=== PATIENT | male | born 1965 | race Caucasian/White ===

== ENCOUNTER 2024-04-27 19:02 | Emergency (ER) | payer OTHER, SELFPAY ==
[2024-04-27 19:16] VITALS: BP 146/87; PULSE 100; RESP 16; TEMP 37.1; O2SAT 99
--- NOTE | 2024-04-27 19:21 | ED_ITS ---
HPI - URI/Sore Throat General Chief Complaint: Upper Respiratory Infection Stated Complaint: Cough, Rib Pain Source: patient Mode of arrival: ambulatory Limitations: no limitations History of Present Illness HPI Narrative: 50-year-old male presented for complaint of left rib pain, onset last night. He states it occurred during a coughing fit, and felt like something tore. Pain is worse when any movement especially coughing, rating pain up to 10/10. Endorses cough x3 days, and nasal congestion started today. Denies shortness of breath, wheezing, nausea, vomiting, diarrhea, fevers or chills. He has taken A leve and ibuprofen for pain. Pt is scheduled with his pcp tomorrow. Related Data Allergies Allergy/AdvReac Type Severity Reaction Status Date / Time No Known Allergies Allergy Verified 04/27/24 19:14 Review of Systems Review of Systems: CONSTITUTIONAL: Denies body aches, fever, chills, or sweats. EYES: Denies visual changes, redness, or discharge. ENT: reports rhinorrhea, congestion, sore throat, or otalgia. CARDIOVASCULAR: Denies chest pain, palpitations, or edema. RESPIRATORY: Reports cough, denies sob, wheezing. GASTROINTESTINAL: Denies abdominal pain, nausea, vomiting, or diarrhea. GENITOURINARY: Denies dysuria or hematuria. SKIN: Denies rash MUSCULOSKELETAL: Reports left rib pain NEUROLOGIC: Denies headache All systems reviewed & are unremarkable except as noted in HPI and below PMFSH Comments At time of signature, I have reviewed and agree with nursing past medical, surgical, social and family history unless otherwise noted. Please see nursing chart for further information. There is no relevant family history pertinent to the presenting complaint Exam Narrative: GENERAL: Appears in pain with movement; in no acute distress. EYES: EOMI. No redness or drainage. Conjunctivae normal. ENT: Mucous membranes pink and moist. No rhinorrhea. TMs normal bilaterally. Throat normal. Uvula midline. NECK: Normal AROM. Supple. CHEST: No respiratory distress. Lungs clear to all dominique. Left lateral rib 5-6 area tender with palpation; no bruising. HEART: Regular rate and rhythm. No murmur appreciated. ABDOMEN: Soft, nontender, nondistended, normal active bowel sounds. SKIN: Warm, dry, no rash. Capillary refill normal. Normal skin turgor. NEURO: Alert and oriented x3. Gait steady. PSYCH: Normal affect. Course Course Emergency Course: Patient is aware of diagnosis, understands and agrees to treatment plan. Anticipatory guidance given. Patient agrees to follow-up as directed and is aware of reasons to seek care at the emergency department. Portions of this record may have been created with voice recognition software Level of Care: Express Care Visit Vital Signs Vital signs: Vital Signs Temperature 98.7 F 04/27/24 19:16 Pulse Rate 100 04/27/24 19:16 Respiratory Rate 16 04/27/24 19:16 Blood Pressure 146/87 H 04/27/24 19:16 Pulse Oximetry 99 04/27/24 19:16 Temperature 98.7 F 04/27/24 19:16 Pulse Rate 100 04/27/24 19:16 Respiratory Rate 16 04/27/24 19:16 Blood Pressure 146/87 H 04/27/24 19:16 Pulse Oximetry 99 04/27/24 19:16 MDM - URI/Sore Throat MDM Narrative Medical decision making narrative: Discussed physical exam findings and reviewed Rx's. Advised supportive measures and signs/symptoms to go to the ER. Pt is appropriate for outpt treatment and f/u. Differential Diagnosis Differential diagnosis: Likely upper respiratory infection, sinusitis, viral infection, bronchitis and other (pneumonia, rib contusion, costochondritis, fracture, dislocation) Discharge Plan Discharge Clinical Impression: Bronchitis, Rib pain on left side Patient Disposition: Home, Self-Care Condition: Stable Instructions: Antibiotic Form, Costochondritis (ED), Acute Bronchitis (ED) Additional Instructions: Acute bronchitis can be contagious because it is usually caused by infection with a virus or bacteria. It is usually for a few days but you can be contagious for up to one week. Avoid crowds until you do not have a fever and symptoms are improved Take medication as directed Recommendations: for nasal congestion; Flonase spray and Zyrtec (or Claritin/Lizeth) Prescribed Cough syrup may cause drowsiness; avoid driving or take it at night time. Push fluids, and increase humidity of the air at home. For pain: Rest. Avoid pushing, pulling, lifting or anything that worsens the symptoms Splint the chest with a pillow when laughing, coughing, sneezing etc. Tylenol 1000mg every 8 hours as needed Take steroid as directed - limit NSAIDs( advil, aleve, ibuprofen, Motrin etc) Alternate ice/heat to the site. Lidocaine or salon pas pain patch to the site of pain, or use pain cream like icy/hot or biofreeze. Follow up with your primary care provider as scheduled Go to the ER for worsening symptoms or concerns Patient Language: Portuguese Prescriptions: New codeine-guaifenesin [Guaifenesin AC] 10-100 mg/5 mL liquid 10 ml PO Q8H PRN (Reason: cough) Qty: 120 0RF methylprednisolone [Medrol (Carlos)] 4 mg tablets,dose pack See Rx Instructions .ROUTE .COMPLEX Qty: 21 0RF Rx Instructions: orally per package directions Follow-up/Referrals: Joni,MD Acharya ([place]) [Primary Care Provider] - Time of Disposition: 19:35
--- OUTSIDE RECORDS SUMMARY | 2024-05-05 00:10 | XMS_ITS | Encounter Summary ---
Author Organization [facility] Address [address] [place] [address]. [place] [address] [place] [address] Care Team Providers Care Flight Paramedic Name Role Phone Willy Gomez MD Unavailable [phone] John Quinones MD Primary Care Provider [phone] Encounter Details Date Type Department Care Team (Latest Contact Info) Description 01/22/2023 Travel Social History Tobacco Use Types Packs/Day Years Used Date Smoking Tobacco: Never Smokeless Tobacco: Never Alcohol Use Standard Drinks/Week Comments Yes 33.3 (1 standard drink = 0.6 oz pure alcohol) beer PHQ-2 Answer Date Recorded Patient Health Questionnaire-2 Score 0 12/14/2022 Sex and Gender Information Value Date Recorded Sex Assigned at Not on file Legal Sex Male 7:48 AM CDT Gender Identity Not on file Sexual Orientation Not on file Occupation Industry Job Start Date Job End Date [employer] Not on file Not on file Not on file documented as of this encounter Plan of Treatment Upcoming Encounters Date Type Department Care Team (Late st Contact Info) Description 11/17/2024 8:45 AM CDT Office Visit [facility], [facility] [address] [place], [place] [id number] Stan Wan, SANDIE [facility] [address] [place], [place] [id number] documented as of this encounter Visit Diagnoses Not on filedocumented in this encounter Care Teams Flight Paramedic Relationship Specialty Start Date End Date John Quinones MD [address] [place] [address] PCP - General INTERNAL MEDICINE 10/21/21 Willy Gomez MD [facility]. [facility] [address] [place] [address] [place] [employer] Analyst CARDIOVASCULAR DISEASE 12/11/17 documented as of this encounter
--- OUTSIDE RECORDS SUMMARY | 2024-05-05 00:10 | XMS_ITS | Encounter Summary ---
Author Organization [facility] Address [address] [place] [address]. [place] [address] [place] [address] Care Team Providers Care Detective Precinct Name Role Phone Willy Gomez MD Unavailable [phone] John Quinones MD Primary Care Provider [phone] Encounter Details Date Type Department Care Team (Latest Contact Info) Description 05/07/2023 Travel Social History Tobacco Use Types Packs/Day [...] Description 11/17/2024 8:45 AM CDT Office Visit [facility], [facility] [address] [place], [place] [id number] Stan Wan, SANDIE [facility] [address] [place], [place] [id number] documented as of this encounter Visit Diagnoses Not on filedocumented in this encounter Care Teams Detective Precinct Relationship Specialty Start Date End Date John Quinones MD [address] [place] [address] PCP - General INTERNAL MEDICINE 10/21/21 Willy Gomez MD [facility]. [facility] [address] [place] [address] [place] Senior [employer] Analyst CARDIOVASCULAR DISEASE 12/11/17 documented as of this encounter
--- OUTSIDE RECORDS SUMMARY | 2024-05-05 00:10 | XMS_ITS | Data Portability ---
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 Studies ordered as below. Discussed plan with patient/caregiver , who expressed understanding. Follow up as noted below. Not available 06/14/2022 09:37:40 07/17/2022 07/17/2022 Recommends healthy nutrition, including a diet rich in fruits and vegetables, minimizing simple carbohydrates, salt, and saturated fats. Encouraged regular cardiovascular exercise such as walking at least 30 minutes daily, 5 times per week. Not available 07/17/2022 17:37:31 10/16/2022 10/16/2022 Patient presente d for follow up. Studies ordered as below. Discussed plan with patient/caregiver , who expressed understanding. Follow up as noted below. Recommends healthy nutrition, including a diet rich in fruits and vegetables, minimizing simple carbohydrates, salt, and saturated fats. Encouraged regular cardiovascular exercise such as walking at least 30 minutes daily, 5 times per week. Not available 10/16/2022 09:22:33 02/21/2024 02/21/2024 Recommends healthy nutrition, including a diet rich in fruits and vegetables, minimizing simple carbohydrates, salt, and saturated fats. Encouraged regular cardiovascular exercise such as walking at least 30 minutes daily, 5 times per week. Not available 02/21/2024 10:04:48 Plan of Treatment Reminders Order Date Submit Date Provider Last Modified By Organization Details Last Modified Time Details Appointments ESTABLISH ED PATIENT 15 2024 10:00A Adam Quinones MD Not available Not available Not available Lab CBC w/ auto diff 2022 023 IJEOMA Not available 06/15/2022 14:50:20 lipid panel, serum 2022 023 [email or web address] Not available 06/21/2022 10:19:48 CMP, serum or plasma 2022 023 IJEOMA Not available 06/15/2022 14:50:20 PSA, serum or plasma 2022 023 IJEOMA Not available 06/15/2022 14:50:22 unlisted lab - HIV-1/2 Ag/Ab w/rfx 2022 023 IJEOMA Not available 06/14/2022 09:50:42 noninvasi ve colorecta l cancer DNA + occult blood screening , QL, stool 2022 023 [facility] [employer] [place] (Cologuard Orders Only), [address], [place], [address], 07/17/2023 13:23:36 CBC w/ auto diff 2022 023 [email or web address] Not available 07/24/2022 21:05:01 lipid panel, serum 2022 023 [email or web address] Not available 07/24/2022 21:05:01 CMP, serum or plasma 2022 023 [email or web address] Not available 07/24/2022 21:05:01 lipid panel, serum 2022 023 [email or web address] Not available 10/24/2022 08:27:27 CMP, serum or plasma 2022 023 Not available 10/24/2022 08:27:27 microalbu min/creat inine, mass ratio, urine 2022 023 IJEOMA Not available 01/23/2023 13:00:26 noninvasi ve colorecta l cancer DNA + occult blood screening , QL, stool 2022 023 [facility] [employer] [facility] (Cologuard Orders Only), [address], [address], [place], [address], 10/17/2022 12:49:43 hemoglobi n A1C/hemog lobin total, QN, blood 2022 023 IJEOMA Not available 10/16/2022 09:37:36 urinalysi s complete, reflex culture 2023 [facility], [address], [place], [address], 02/28/2024 08:13:35 lipid panel, serum 2023 [facility], [address], [place], [address], 02/24/2024 00:36:20 CMP, serum or plasma 2023 [facility], [address], [place], [address], 02/24/2024 00:36:19 CBC w/ auto diff 2023 024 [facility], [address], [place], [address], 02/24/2024 00:36:18 PSA, serum or plasma 2023 024 [facility], [address], [place], [address], 02/28/2024 08:13:35 noninvasi ve colorecta l cancer DNA + occult blood screening , QL, stool 2023 024 [facility], [address], [place], [address], 02/21/2024 10:09:02 hemoglobi n A1C/hemog lobin total, QN, blood 2023 024 [facility], [address], [place], [address], 02/21/2024 10:09:04 D-dimer, quant, plasma 2023 024 [facility], [address], [place], [address], 04/30/2024 10:09:56 CBC w/ auto diff 2023 024 [facility], [address], [place], [address], 04/30/2024 10:09:56 BMP, serum or plasma 2023 024 [facility], [address], [place], [address], 04/30/2024 10:09:54 uric acid, serum or plasma 2023 024 [facility], [address], [place], [address], 04/30/2024 10:09:55 Referral ophthalmo logist referral 2022 023 [facility], [address] [place] [address] [place], [address], 07/12/2022 09:02:02 pulmonolo gist referral 2022 023 estrella Hoover MD, [address] [facility], [facility] [address], [place], [address], 07/12/2023 08:16:02 ophthalmo logist referral 2022 023 [facility], [address], [place], [address], 08/14/2022 08:27:45 pulmonolo gist referral 2022 023 IJEOMA Hoover MD, [address] [facility], [address], [place], [address], 12/31/2022 08:35:27 ophthalmo logist referral 2022 023 [facility], [address], [place], [address], 11/13/2022 11:02:24 Procedures None recorded. Surgeries None recorded. Imaging CT, chest, w/ contrast 2022 023 [facility] Central Scheduling, [address] [facility], [place], [address], 07/18/2022 19:02:08 CT, chest, w/ contrast 2022 023 [facility] Central Scheduling, [address] [facility], [place], [address], 07/18/2022 17:35:58 XR, lumbar spine 2023 024 [facility], [address] [facility], [place], [address], 03/06/2024 08:11:59 XR, ribs, unilatera l 2023 024 [facility] Central Scheduling, [address] [facility], [place], [address], 04/28/2024 15:20:41 Medication Orders telmisart an 20 mg tablet 2022 023 [facility], [address], [place], [address], 10/16/2022 09:37:38 Airsupra 90 mcg-80 mcg/actua tion HFA aerosol inhaler 2023 024 [facility], [address] [place], [address], 02/21/2024 10:08:13 telmisart an 20 mg tablet 2023 024 [facility], [address] [place], [address], 02/21/2024 10:08:13 hydrocodo ne 5 mg-acetam inophen 325 mg tablet 2023 [facility] [address], [address] [place] [address], [address], 04/28/2024 15:14:05 codeine 10 mg-guaife nesin 100 mg/5 mL oral liquid 2023 024 [facility] [address], [address] [place] [address], [address], 04/28/2024 15:14:05 benzonata te 200 mg capsule 2023 024 [facility] [address], [address] [place] [address], [address], 04/28/2024 15:14:04 Patient TargetsNo targets recorded. Patient Instructions Encounter Date Encounter Id Patient Instructions Last Modified By Organization Details Last Modified Time 06/14/2022 [id number] advised to lose weight Not available 06/14/2022 09:50:13 spirometry testing* IJEOMA Not available 06/14/2022 14:41:22 07/17/2022 [id number] advised to lose weight Not available 07/17/2022 17:55:15 10/16/2022 [id number] advised to lose weight Not available 10/16/2022 09:37:31 02/21/2024 [id number] advised to lose weight Not available 02/21/2024 10:08:03 Discussed and explained advance directives such as standard forms to the {{patient caregiv er patient and caregiver}}. Face to face discussion lasted for a duration of ___ minutes. [email or web address] Not available 02/21/2024 09:06:54 Reason for Referral Rn Endocrinology Referral for Visual disturbance Referring Physician: Marvel Quinones [facility], Encounter Date: 06/14/2022 Rn Endocrinology Referral for Visual disturbance Referring Physician: Marvel Quinones [facility], Encounter Date: 07/17/2022 Pack Master Referral for S upraclavicular lymphadenopathy Referring Physician: Marvel Quinones [facility], Encounter Date: 07/17/2022 Rn Endocrinology Referral for Visual disturbance Referring Physician: Marvel Quinones [facility], Encounter Date: 10/16/2022 Pack Master Referral for S upraclavicular lymphadenopathy Referring Physician: Marvel Quinones [facility], Encounter Date: 10/16/2022 Results Created Date Observation Date Name Description Value Unit Range Abnormal Flag Note LastModifiedBy Organization Detail LastModifiedTime 06/14/1906/14/2022 COMPL ETE CBC W/AUT O DIFF WBC white blood cell count 7.1 thous and/u L 3.5-10 .0 Not Available [facility] (Main Location) [facility] [address] ,, [place], [address], 06/15/2022 14:50:20 06/14/19 23 06/14/2022 COMPL ETE CBC W/AUT O DIFF WBC red blood cell count 4.8 cam on/uL 3.5-5. 5 Not Available [facility] (Main Location) [facility] [address] ,, [place], [address], 06/15/2022 14:50:20 06/14/19 23 06/14/2022 COMPL ETE CBC W/AUT O DIFF WBC hemoglobin 15.1 g/dL 11.5-1 6.5 Not Available [facility] (Main Location) [facility] [address] ,, [place], [address], 06/15/2022 14:50:20 06/14/19 23 06/14/2022 COMPL ETE CBC W/AUT O DIFF WBC hematocrit 46 % 35-55 Not Available [facility] (Main Location) [facility] [address] ,, [place], [address], 06/15/2022 14:50:20 06/14/19 23 06/14/2022 COMPL ETE CBC W/AUT O DIFF WBC MCH 32 pg 25-35 Not Available [facility] (Main Location) [facility] [address] ,, [place], [address], 06/15/2022 14:50:20 06/14/19 23 06/14/2022 COMPL ETE CBC W/AUT O DIFF WBC MCHC 33 g/dL 31-38 Not Available [facility] (Main Location) [facility] [address] ,, [place], [address], 06/15/2022 14:50:20 06/14/19 23 06/14/2022 COMPL ETE CBC W/AUT O DIFF WBC MCV 96 fL 75-100 Not Available [facility] (Main Location) [facility] [address] ,, [place], [address], 06/15/2022 14:50:20 06/14/19 23 06/14/2022 COMPL ETE CBC W/AUT O DIFF WBC RDW-CV 13 % 11-15 Not Available [facility] (Main Location) [facility] [address] ,, [place], [address], 06/15/2022 14:50:20 06/14/19 23 06/14/2022 COMPL ETE CBC W/AUT O DIFF WBC neutrophils% 56.2 % Not Available [facility] (Main Location) [facility] [address] ,, [place], [address], 06/15/2022 14:50:20 06/14/19 23 06/14/2022 COMPL ETE CBC W/AUT O DIFF WBC lymphocytes% 32.0 % Not Available [facility] (Main Location) [facility] [address] ,, [place], [address], 06/15/2022 14:50:20 06/14/19 23 06/14/2022 COMPL ETE CBC W/AUT O DIFF WBC monocytes% 8.9 % Not Available [facility] (Main Location) [facility] [address] ,, [place], [address], 06/15/2022 14:50:20 06/14/19 23 06/14/2022 COMPL ETE CBC W/AUT O DIFF WBC eosinophil % 1.8 % 0.0-7. 0 Not Available [facility] (Main Location) [facility] [address] ,, [place], [address], 06/15/2022 14:50:20 06/14/19 23 06/14/2022 COMPL ETE CBC W/AUT O DIFF WBC basophil % 0.8 % 0.0-3. 0 Not Available [facility] (Main Location) [facility] [address] ,, [place], [address], 06/15/2022 14:50:20 06/14/19 23 06/14/2022 COMPL ETE CBC W/AUT O DIFF WBC absolute neutrophils 4.0 cells /uL 1.5-7. 8 Not Available [facility] (Main Location) [facility] [address] ,, [place], [address], 06/15/2022 14:50:20 06/14/19 23 06/14/2022 COMPL ETE CBC W/AUT O DIFF WBC absolute lymphocytes 2.27 cells /uL 0.85-3 .90 Not Available [facility] (Main Location) [facility] [address] ,, [place], [address], 06/15/2022 14:50:20 06/14/19 23 06/14/2022 COMPL ETE CBC W/AUT O DIFF WBC absolute monocytes 0.6 cells /uL 0.2-1. 0 Not Available [facility] (Main Location) [facility] [address] ,, [place], [address], 06/15/2022 14:50:20 06/14/19 23 06/14/2022 COMPL ETE CBC W/AUT O DIFF WBC absolute eosinophils 0.1 cells /uL 0.0-0. 5 Not Available [facility] (Main Location) [facility] [address] ,, [place], [address], 06/15/2022 14:50:20 06/14/19 23 06/14/2022 COMPL ETE CBC W/AUT O DIFF WBC absolute basophils 0.1 cells /uL 0.0-0. 2 Not Available [facility] (Main Location) [address] [place], [place] [address] ,, [place], [address], 06/15/2022 14:50:20 06/14/19 23 06/14/2022 COMPL ETE CBC W/AUT O DIFF WBC platelet count 222 thous and/u L 100-40 0 Not Available [facility] (Main Location) [address] [place], [place] [address] ,, [place], [address], 06/15/2022 14:50:20 06/14/19 23 06/14/2022 CMP (COMP REHEN SIVE METAB OLIC PANEL ) glucose 115 mg/dL 74-99 high Not Available [facility] (Main Location) [address] [place], [place] [address] ,, [place], [address], 06/15/2022 14:50:20 06/14/19 23 06/14/2022 CMP (COMP REHEN SIVE METAB OLIC PANEL ) urea nitrogen, blood (BUN) 12 mg/dL 6-20 Not Available [facility] (Main Location) [address] [place], [place] [address] ,, [place], [address], 06/15/2022 14:50:20 06/14/19 23 06/14/2022 CMP (COMP REHEN SIVE METAB OLIC PANEL ) total bilirubin 0.4 mg/dL 0.0-1. 2 Not Available [facility] (Main Location) [address] [place], [place] [address] ,, [place], [address], 06/15/2022 14:50:20 06/14/19 23 06/14/2022 CMP (COMP REHEN SIVE METAB OLIC PANEL ) total protein 7.8 g/dL 6.6-8. 7 Not Available [facility] (Main Location) [address] [place] [address] [address] ,, [place], [address], 06/15/2022 14:50:20 06/14/19 23 06/14/2022 CMP (COMP REHEN SIVE METAB OLIC PANEL ) alanine aminotransfe rase (ALT) 55 U/L 0-41 high Not Available [facility] (Main Location) [address] [place] [address]. [address] ,, [place], [address], 06/15/2022 14:50:20 06/14/19 23 06/14/2022 CMP (COMP REHEN SIVE METAB OLIC PANEL ) alkaline phosphatase 104 U/L 40-130 Not Available [facility] (Main Location) [address] [place] [address] [address] ,, [place], [address], 06/15/2022 14:50:20 06/14/19 23 06/14/2022 CMP (COMP REHEN SIVE METAB OLIC PANEL ) aspartate aminotransfe rase (AST) 28 U/L 0-40 Not Available [facility] (Main Location) [address] [place] [address]. [address] ,, [place], [address], 06/15/2022 14:50:20 06/14/19 23 06/14/2022 CMP (COMP REHEN SIVE METAB OLIC PANEL ) calcium 9.4 mg/dL 8.6-10 .2 Not Available [facility] (Main Location) [address] [place] [address] [address] ,, [place], [address], 06/15/2022 14:50:20 06/14/19 23 06/14/2022 CMP (COMP REHEN SIVE METAB OLIC PANEL ) albumin 4.5 g/dL 3.5-5. 2 Not Available [facility] (Main Location) [address] [place] [address] [address] ,, [place], [address], 06/15/2022 14:50:20 06/14/19 23 06/14/2022 CMP (COMP REHEN SIVE METAB OLIC PANEL ) CO2 25 mmol/ L 22-29 Not Available [facility] (Main Location) [address] ,, [place], [address], 06/15/2022 14:50:20 06/14/19 23 06/14/2022 CMP (COMP REHEN SIVE METAB OLIC PANEL ) creatinine, serum 0.9 mg/dL 0.7-1. 2 Not Available [facility] (Main Location) [address] [place] [address] [address] ,, [place], [address], 06/15/2022 14:50:20 06/14/19 23 06/14/2022 CMP (COMP REHEN SIVE METAB OLIC PANEL ) sodium, serum 137 mmol/ L 136-14 5 Not Available [facility] (Main Location) [address] [place] [address] [address] ,, [place], [address], 06/15/2022 14:50:20 06/14/19 23 06/14/2022 CMP (COMP REHEN SIVE METAB OLIC PANEL ) potassium, serum 4.0 mmol/ L 3.5-5. 1 Not Available [facility] (Main Location) [address] [place] [address] [address] ,, [place], [address], 06/15/2022 14:50:20 06/14/19 23 06/14/2022 CMP (COMP REHEN SIVE METAB OLIC PANEL ) chloride, serum 100 mmol/ L 98-107 Not Available [facility] (Main Location) [address] [place] [address] [address] ,, [place], [address], 06/15/2022 14:50:20 06/14/19 23 06/14/2022 CMP (COMP REHEN SIVE METAB OLIC PANEL ) eGFR 97 >59 Persi stent reduc tion for 3 month s or more in an eGFR <60 mL/mi n/1.7 3 m2 defin es CKD. Patie nts with eGFR value s>/=6 0 mL/mi n/1.7 3 m2 may also have CKD if evide nce of persi stent protu sharee a is prese nt. Addit ional infor montrell vigil may be found at www.k doqi. org. Not Available [facility] (Main Location) [address] ,, [place], [address], 06/15/2022 14:50:20 06/14/19 23 06/14/2022 HIV-1 /2 AG & AB HIV antibody NON-RE ACTIVE non-re active Not Available [facility] (Main Location) [address] ,, [place], [address], 06/15/2022 14:50:21 06/14/19 23 06/14/2022 HIV-1 /2 AG & AB HIV P24 antigen NON-RE ACTIVE non-re active Not Available [facility] (Main Location) [address] ,, [place], [address], 06/15/2022 14:50:21 06/14/19 23 06/14/2022 LIPID PANEL trigylceride s 234 mg/dL 0-150 high Not Available [facility] (Main Location) [address] ,, [place], [address], 06/15/2022 14:50:22 06/14/19 23 06/14/2022 LIPID PANEL cholesterol 180 mg/dL 0-200 Not Available [facility] (Main Location) [address] ,, [place], [place], [address], 06/15/2022 14:50:22 06/14/19 23 06/14/2022 LIPID PANEL uhdl 38 mg/dL 35-55 Not Available [facility] (Main Location) [address] ,, [place], [place], [address], 06/15/2022 14:50:22 06/14/19 23 06/14/2022 LIPID PANEL LDL, calculated 95 mg/dL 0-100 Not Available [facility] (Main Location) [address] ,, [place], [place], [address], 06/15/2022 14:50:22 06/14/19 23 06/14/2022 LIPID PANEL LDL/HDL ratio 3 mg/dL 0-5 Not Available [facility] (Main Location) [address] ,, [place], [address], 06/15/2022 14:50:22 06/14/19 23 06/14/2022 LIPID PANEL VLDL 46.8 mg/dL 5.0-40 .0 high Not Available [facility] (Main Location) [facility] [address] ,, [place], [address], 06/15/2022 14:50:22 06/14/19 23 06/14/2022 LIPID PANEL cholesterol/ HDL ratio 4.74 0.00-5 .00 Not Available [facility] (Main Location) [address] [place], [place] [address] ,, [place], [address], 06/15/2022 14:50:22 06/14/19 23 06/14/2022 PROST ATE-S PECIF IC ANTIG EN (PSA) , TOTAL PSA, total 0.5 NG/mL 0.0-4. 0 PSA is an elect henry milum inesc ence immun oassa y run on the [facility] [address]. Not Available [facility] (Main Location) [facility] [address] ,, [place], [address], 06/15/2022 14:50:22 06/26/19 23 06/26/2022 HEMOG LOBIN A1C HGBA1C 5.5 % 4.0-6. 0 Not Available [facility] (Main Location) [address] [place], [place] [address] ,, [place], [address], 06/27/2022 13:39:59 07/14/1907/13/2022 marietta metry testi ng* Spirometry Not Available [facility], [facility] [address], [place], [address], 06/14/2022 09:35:18 07/25/19 23 07/24/2022 COMPL ETE CBC W/AUT O DIFF WBC white blood cell count 6.7 thous and/u L 3.5-10 .0 Not Available [facility] (Main Location) [address] ,, [place], [address], 07/25/2022 14:22:42 07/25/19 23 07/24/2022 COMPL ETE CBC W/AUT O DIFF WBC red blood cell count 4.8 cam on/uL 3.5-5. 5 Not Available [facility] (Main Location) [address] ,, [place], [address], 07/25/2022 14:22:42 07/25/19 23 07/24/2022 COMPL ETE CBC W/AUT O DIFF WBC hemoglobin 15.2 g/dL 11.5-1 6.5 Not Available [facility] (Main Location) [address] ,, [place], [address], 07/25/2022 14:22:42 07/25/19 23 07/24/2022 COMPL ETE CBC W/AUT O DIFF WBC hematocrit 46 % 35-55 Not Available [facility] (Main Location) [address] ,, [place], [address], 07/25/2022 14:22:42 07/25/19 23 07/24/2022 COMPL ETE CBC W/AUT O DIFF WBC MCH 32 pg 25-35 Not Available [facility] (Main Location) [address] ,, [place], [address], 07/25/2022 14:22:42 07/25/19 23 07/24/2022 COMPL ETE CBC W/AUT O DIFF WBC MCHC 33 g/dL 31-38 Not Available [facility] (Main Location) [address] ,, [place], [address], 07/25/2022 14:22:42 07/25/19 23 07/24/2022 COMPL ETE CBC W/AUT O DIFF WBC MCV 96 fL 75-100 Not Available [facility] (Main Location) [address] ,, [place], [address], 07/25/2022 14:22:42 07/25/19 23 07/24/2022 COMPL ETE CBC W/AUT O DIFF WBC RDW-CV 13 % 11-15 Not Available [facility] (Main Location) [address] ,, [place], [address], 07/25/2022 14:22:42 07/25/19 23 07/24/2022 COMPL ETE CBC W/AUT O DIFF WBC neutrophils% 55.0 % Not Available [facility] (Main Location) [facility] [address] ,, [place], [address], 07/25/2022 14:22:42 07/25/19 23 07/24/2022 COMPL ETE CBC W/AUT O DIFF WBC lymphocytes% 34.7 % Not Available [facility] (Main Location) [facility] [address] ,, [place], [address], 07/25/2022 14:22:42 07/25/19 23 07/24/2022 COMPL ETE CBC W/AUT O DIFF WBC monocytes% 6.9 % Not Available [facility] (Main Location) [address] ,, [place], [address], 07/25/2022 14:22:42 07/25/19 23 07/24/2022 COMPL ETE CBC W/AUT O DIFF WBC eosinophil % 2.4 % 0.0-7. 0 Not Available [facility] (Main Location) [facility] [address] ,, [place], [address], 07/25/2022 14:22:42 07/25/19 23 07/24/2022 COMPL ETE CBC W/AUT O DIFF WBC basophil % 0.9 % 0.0-3. 0 Not Available [facility] (Main Location) [facility] [address] ,, [place], [address], 07/25/2022 14:22:42 07/25/19 23 07/24/2022 COMPL ETE CBC W/AUT O DIFF WBC absolute neutrophils 3.7 cells /uL 1.5-7. 8 Not Available [facility] (Main Location) [address] ,, [place], [address], 07/25/2022 14:22:42 07/25/19 23 07/24/2022 COMPL ETE CBC W/AUT O DIFF WBC absolute lymphocytes 2.32 cells /uL 0.85-3 .90 Not Available [facility] (Main Location) [address] ,, [place], [address], 07/25/2022 14:22:42 07/25/19 23 07/24/2022 COMPL ETE CBC W/AUT O DIFF WBC absolute monocytes 0.5 cells /uL 0.2-1. 0 Not Available [facility] (Main Location) [address] ,, [place], [address], 07/25/2022 14:22:42 07/25/19 23 07/24/2022 COMPL ETE CBC W/AUT O DIFF WBC absolute eosinophils 0.2 cells /uL 0.0-0. 5 Not Available [facility] (Main Location) [address] ,, [place], [address], 07/25/2022 14:22:42 07/25/19 23 07/24/2022 COMPL ETE CBC W/AUT O DIFF WBC absolute basophils 0.1 cells /uL 0.0-0. 2 Not Available [facility] (Main Location) [address] ,, [place], [address], 07/25/2022 14:22:42 07/25/19 23 07/24/2022 COMPL ETE CBC W/AUT O DIFF WBC platelet count 182 thous and/u L 100-40 0 Not Available [facility] (Main Location) [address] ,, [place], [address], 07/25/2022 14:22:42 07/25/19 23 07/24/2022 CMP (COMP REHEN SIVE METAB OLIC PANEL ) glucose 105 mg/dL 74-99 high Not Available [facility] (Main Location) [address] [place] [address]. [address] ,, [place], [address], 07/25/2022 14:22:43 07/25/19 23 07/24/2022 CMP (COMP REHEN SIVE METAB OLIC PANEL ) urea nitrogen, blood (BUN) 16 mg/dL 6-20 Not Available [facility] (Main Location) [address] [place] [address]. [address] ,, [place], [address], 07/25/2022 14:22:43 07/25/19 23 07/24/2022 CMP (COMP REHEN SIVE METAB OLIC PANEL ) total bilirubin 0.4 mg/dL 0.0-1. 2 Not Available [facility] (Main Location) [address] [place] [address]. [address] ,, [place], [address], 07/25/2022 14:22:43 07/25/19 23 07/24/2022 CMP (COMP REHEN SIVE METAB OLIC PANEL ) total protein 6.5 g/dL 6.6-8. 7 low Not Available [facility] (Main Location) [address] [place] [address]. [address] ,, [place], [address], 07/25/2022 14:22:43 07/25/19 23 07/24/2022 CMP (COMP REHEN SIVE METAB OLIC PANEL ) alanine aminotransfe rase (ALT) 41 U/L 0-41 Not Available [facility] (Main Location) [address] [place] [address]. [address] ,, [place], [address], 07/25/2022 14:22:43 07/25/19 23 07/24/2022 CMP (COMP REHEN SIVE METAB OLIC PANEL ) alkaline phosphatase 85 U/L 40-130 Not Available [facility] (Main Location) [address] [place] [address]. [address] ,, [place], [address], 07/25/2022 14:22:43 07/25/19 23 07/24/2022 CMP (COMP REHEN SIVE METAB OLIC PANEL ) aspartate aminotransfe rase (AST) 19 U/L 0-40 Not Available [facility] (Main Location) [address] [place] [address] [address]. [address] ,, [place], [place], [address], 07/25/2022 14:22:43 07/25/19 23 07/24/2022 CMP (COMP REHEN SIVE METAB OLIC PANEL ) calcium 9.1 mg/dL 8.6-10 .2 Not Available [facility] (Main Location) [address] [place] [address] Rd. [address] ,, [place], [place], [address], 07/25/2022 14:22:43 07/25/19 23 07/24/2022 CMP (COMP REHEN SIVE METAB OLIC PANEL ) albumin 4.4 g/dL 3.5-5. 2 Not Available [facility] (Main Location) [address] [place] [address] [address]. [address] ,, [place], [place], [address], 07/25/2022 14:22:43 07/25/19 23 07/24/2022 CMP (COMP REHEN SIVE METAB OLIC PANEL ) CO2 23 mmol/ L 22-29 Not Available [facility] (Main Location) [address] [place] [address] Rd. [address] ,, [place], [address], 07/25/2022 14:22:43 07/25/19 23 07/24/2022 CMP (COMP REHEN SIVE METAB OLIC PANEL ) creatinine, serum 0.8 mg/dL 0.7-1. 2 Not Available [facility] (Main Location) [address] [place] [address] Rd. [address] ,, [place], [address], 07/25/2022 14:22:43 07/25/19 23 07/24/2022 CMP (COMP REHEN SIVE METAB OLIC PANEL ) sodium, serum 139 mmol/ L 136-14 5 Not Available [facility] (Main Location) [address] [place] [address] Rd. [address] ,, [place], [address], 07/25/2022 14:22:43 07/25/19 23 07/24/2022 CMP (COMP REHEN SIVE METAB OLIC PANEL ) potassium, serum 4.5 mmol/ L 3.5-5. 1 Not Available [facility] (Main Location) [address] ,, [place], [address], 07/25/2022 14:22:43 07/25/19 23 07/24/2022 CMP (COMP REHEN SIVE METAB OLIC PANEL ) chloride, serum 106 mmol/ L 98-107 Not Available [facility] (Main Location) [address] ,, [place], [address], 07/25/2022 14:22:43 07/25/19 23 07/24/2022 CMP (COMP REHEN SIVE METAB OLIC PANEL ) eGFR 102 >59 Persi stent reduc tion for 3 month s or more in an eGFR <60 mL/mi n/1.7 3 m2 defin es CKD. Patie nts with eGFR value s>/=6 0 mL/mi n/1.7 3 m2 may also have CKD if evide nce of persi stent protu niuri a is prese nt. Addit ional infor matuche n may be found at [email or web address] [email or web address] org. Not Available [facility] (Main Location) [address] ,, [place], [address], 07/25/2022 14:22:43 07/25/19 23 07/24/2022 LIPID PANEL trigylceride s 95 mg/dL 0-150 Not Available [facility] (Main Location) [address] ,, [place], [address], 07/25/2022 14:22:44 07/25/19 23 07/24/2022 LIPID PANEL cholesterol 167 mg/dL 0-200 Not Available [facility] (Main Location) [address] ,, [place], [address], 07/25/2022 14:22:44 07/25/19 23 07/24/2022 LIPID PANEL uhdl 44 mg/dL 35-55 Not Available [facility] (Main Location) [address] ,, [place], [address], 07/25/2022 14:22:44 07/25/19 23 07/24/2022 LIPID PANEL LDL, calculated 104 mg/dL 0-100 high Not Available [facility] (Main Location) [facility] [address] ,, [place], [address], 07/25/2022 14:22:44 07/25/19 23 07/24/2022 LIPID PANEL LDL/HDL ratio 2 mg/dL 0-5 Not Available [facility] (Main Location) [facility] [address] ,, [place], [address], 07/25/2022 14:22:44 07/25/19 23 07/24/2022 LIPID PANEL VLDL 19.0 mg/dL 5.0-40 .0 Not Available [facility] (Main Location) [facility] [address] ,, [place], [address], 07/25/2022 14:22:44 07/25/19 23 07/24/2022 LIPID PANEL cholesterol/ HDL ratio 3.80 0.00-5 .00 Not Available [facility] (Main Location) [address] ,, [place], [address], 07/25/2022 14:22:44 01/23/20 23 01/22/2023 HEMOG LOBIN A1C HGBA1C 5.2 % 4.0-6. 0 Not Available [facility] (Main Location) [address] ,, [place], [address], 01/23/2023 13:00:24 01/23/20 23 01/22/2023 CMP (COMP REHEN SIVE METAB OLIC PANEL ) glucose 103 mg/dL 74-99 high Not Available [facility] (Main Location) [facility] [address] ,, [place], [address], 01/23/2023 13:00:24 01/23/20 23 01/22/2023 CMP (COMP REHEN SIVE METAB OLIC PANEL ) urea nitrogen, blood (BUN) 14 mg/dL 6-20 Not Available [facility] (Main Location) [address] [place] [address]. [address] ,, [place], [address], 01/23/2023 13:00:24 01/23/20 23 01/22/2023 CMP (COMP REHEN SIVE METAB OLIC PANEL ) total bilirubin 0.2 mg/dL 0.0-1. 2 Not Available [facility] (Main Location) [address] [place] [address] [address]. [address] ,, [place], [address], 01/23/2023 13:00:24 01/23/20 23 01/22/2023 CMP (COMP REHEN SIVE METAB OLIC PANEL ) total protein 6.6 g/dL 6.6-8. 7 Not Available [facility] (Main Location) [address] [place] [address]. [address] ,, [place], [address], 01/23/2023 13:00:24 01/23/20 23 01/22/2023 CMP (COMP REHEN SIVE METAB OLIC PANEL ) alanine aminotransfe rase (ALT) 31 U/L 0-41 Not Available [facility] (Main Location) [address] [place] [address]. [address] ,, [place], [address], 01/23/2023 13:00:24 01/23/20 23 01/22/2023 CMP (COMP REHEN SIVE METAB OLIC PANEL ) alkaline phosphatase 89 U/L 40-130 Not Available [facility] (Main Location) [address] [place] [address]. [address] ,, [place], [address], 01/23/2023 13:00:24 01/23/20 23 01/22/2023 CMP (COMP REHEN SIVE METAB OLIC PANEL ) aspartate aminotransfe rase (AST) 25 U/L 0-40 Not Available [facility] (Main Location) [address] [place] [address] Rd. [address] ,, [place], [address], 01/23/2023 13:00:24 01/23/20 23 01/22/2023 CMP (COMP REHEN SIVE METAB OLIC PANEL ) calcium 9.1 mg/dL 8.6-10 .2 Not Available [facility] (Main Location) [address] ,, [place], [address], 01/23/2023 13:00:24 01/23/20 23 01/22/2023 CMP (COMP REHEN SIVE METAB OLIC PANEL ) albumin 4.2 g/dL 3.5-5. 2 Not Available [facility] (Main Location) [address] [address] ,, [place], [address], 01/23/2023 13:00:24 01/23/20 23 01/22/2023 CMP (COMP REHEN SIVE METAB OLIC PANEL ) CO2 26 mmol/ L 22-29 Not Available [facility] (Main Location) [facility] [address] ,, [place], [address], 01/23/2023 13:00:24 01/23/20 23 01/22/2023 CMP (COMP REHEN SIVE METAB OLIC PANEL ) creatinine, serum 1.0 mg/dL 0.7-1. 2 Not Available [facility] (Main Location) [address] [address] ,, [place], [address], 01/23/2023 13:00:24 01/23/20 23 01/22/2023 CMP (COMP REHEN SIVE METAB OLIC PANEL ) sodium, serum 137 mmol/ L 136-14 5 Not Available [facility] (Main Location) [facility] [address] ,, [place], [address], 01/23/2023 13:00:24 01/23/20 23 01/22/2023 CMP (COMP REHEN SIVE METAB OLIC PANEL ) potassium, serum 4.6 mmol/ L 3.5-5. 1 Not Available [facility] (Main Location) [facility] [address] ,, [place], [address], 01/23/2023 13:00:24 01/23/20 23 01/22/2023 CMP (COMP REHEN SIVE METAB OLIC PANEL ) chloride, serum 101 mmol/ L 98-107 Not Available [facility] (Main Location) [address] ,, [place], [address], 01/23/2023 13:00:24 01/23/20 23 01/22/2023 CMP (COMP REHEN SIVE METAB OLIC PANEL ) eGFR 90 >59 Persi stent reduc tion for 3 month s or more in an eGFR <60 mL/mi n/1.7 3 m2 defin es CKD. Patie nts with eGFR value s>/=6 0 mL/mi n/1.7 3 m2 may also have CKD if evide nce of persi stent protu niuri a is prese nt. Addit ional infor montrell vigil may be found at [email or web address] [email or web address] org. Not Available [facility] (Main Location) [address] ,, [place], [address], 01/23/2023 13:00:24 01/23/20 23 01/22/2023 LIPID PANEL trigylceride s 151 mg/dL 0-150 high Not Available [facility] (Main Location) [address] ,, [place], [address], 01/23/2023 13:00:25 01/23/20 23 01/22/2023 LIPID PANEL cholesterol 181 mg/dL 0-200 Not Available [facility] (Main Location) [address] ,, [place], [address], 01/23/2023 13:00:25 01/23/20 23 01/22/2023 LIPID PANEL uhdl 50 mg/dL 35-55 Not Available [facility] (Main Location) [address] ,, [place], [address], 01/23/2023 13:00:25 01/23/20 23 01/22/2023 LIPID PANEL LDL, calculated 101 mg/dL 0-100 high Not Available [facility] (Main Location) [address] ,, [place], [address], 01/23/2023 13:00:25 01/23/20 23 01/22/2023 LIPID PANEL LDL/HDL ratio 2 mg/dL 0-5 Not Available [facility] (Main Location) [address] ,, [place], [address], 01/23/2023 13:00:25 01/23/20 23 01/22/2023 LIPID PANEL VLDL 30.2 mg/dL 5.0-40 .0 Not Available [facility] (Main Location) [address] ,, [place], [address], 01/23/2023 13:00:25 01/23/20 23 01/22/2023 LIPID PANEL cholesterol/ HDL ratio 3.62 0.00-5 .00 Not Available [facility] (Main Location) [address] ,, [place], [address], 01/23/2023 13:00:25 01/23/20 23 01/22/2023 URINE MICRO ALBUM IN/CR EATIN INE RATIO urine microalbumin 1 mg/L 0-30 Not Available [facility] (Main Location) [address] ,, [place], [address], 01/23/2023 13:00:26 01/23/20 23 01/22/2023 URINE MICRO ALBUM IN/CR EATIN INE RATIO urine creatinine 63.87 mg/dL 39.00- 259.00 Not Available [facility] (Main Location) [address] ,, [place], [address], 01/23/2023 13:00:26 01/23/20 23 01/22/2023 URINE MICRO ALBUM IN/CR EATIN INE RATIO urine microalbumin /creatinine ratio 2 mg/g_ creat inine 0-30 Not Available [facility] (Main Location) [address] ,, [place], [address], 01/23/2023 13:00:26 01/23/20 23 01/22/2023 HEMOG LOBIN A1C HGBA1C 5.2 % 4.0-6. 0 Not Available [facility] (Main Location) [address] ,, [place], [address], 01/23/2023 13:00:28 02/21/2002/21/2024 HEMOG LOBIN A1C hemoglobin A1C 5.3 % 4.8-5. 6 BESSIE L RANGE BASED ON VALENCIA COL 2 (DCCT /NGSP ): Non-D iabet ic: < 5.7% Pre-D iabet es: 5.7 - 6.4% Diabe baylee: => 6.5% GLYCE ANNABEL CONTR OL: < 7.0% Not Available [facility] [address] [facility] [address], [place], [address], 02/24/2024 00:36:17 02/21/2002/21/2024 HEMOG LOBIN A1C estimated average glucose 106 Not Available [facility] [address], [place], [address], 02/24/2024 00:36:17 02/21/2002/21/2024 CBC WITH AUTO- DIFFE RENTI AL WBC 7.5 10*3/ uL 3.4-10 .8 Not Available [facility] [address] [facility] [address], [place], [address], 02/24/2024 00:36:18 02/21/2002/21/2024 CBC WITH AUTO- DIFFE RENTI AL RBC 4.66 10*6/ uL 4.20-5 .80 Not Available [facility] [address] [facility] [address] [facility] [address], [place], [address], 02/24/2024 00:36:18 02/21/2002/21/2024 CBC WITH AUTO- DIFFE RENTI AL HGB 15.0 g/dL 12.6-1 7.7 Not Available [facility] [address] [facility] [address], [place], [address], 02/24/2024 00:36:18 02/21/2002/21/2024 CBC WITH AUTO- DIFFE RENTI AL HCT 45.4 % 37.5-5 1.0 Not Available [facility] [address], [place], [address], 02/24/2024 00:36:18 02/21/2002/21/2024 CBC WITH AUTO- DIFFE RENTI AL MCV 97 fL 79-97 Not Available [facility] [address] [facility] [address], [place], [address], 02/24/2024 00:36:18 02/21/2002/21/2024 CBC WITH AUTO- DIFFE RENTI AL MCH 32.2 pg 26.6-3 3.0 Not Available [facility] [address] [facility] [address], [place], [address], 02/24/2024 00:36:18 02/21/2002/21/2024 CBC WITH AUTO- DIFFE RENTI AL MCHC 33.0 g/dL 31.5-3 5.7 Not Available [facility] [address] [facility] [address], [place], [address], 02/24/2024 00:36:18 02/21/2002/21/2024 CBC WITH AUTO- DIFFE RENTI AL RDW 13.2 % 11.5-1 4.5 Not Available [facility] [address] [facility] [address], [place], [address], 02/24/2024 00:36:18 02/21/2002/21/2024 CBC WITH AUTO- DIFFE RENTI AL platelets 206 10*3/ uL 150-40 0 Not Available [facility] [address] [facility] [address], [place], [address], 02/24/2024 00:36:18 02/21/2002/21/2024 CBC WITH AUTO- DIFFE RENTI AL MPV 10 fL 9-13 Not Available [facility] [address] [facility] [address], [place], [address], 02/24/2024 00:36:18 02/21/2002/21/2024 CBC WITH AUTO- DIFFE RENTI AL neutrophils 57.8 % 40.0-7 4.0 Not Available [facility] [address] [facility] [address], [place], [address], 02/24/2024 00:36:18 02/21/2002/21/2024 CBC WITH AUTO- DIFFE RENTI AL absolute neutrophils 4.35 10*3/ uL 1.40-7 .00 Not Available [facility] [address] [facility] [address], [place], [address], 02/24/2024 00:36:18 02/21/2002/21/2024 CBC WITH AUTO- DIFFE RENTI AL lymphocytes 31.5 % 14.0-4 6.0 Not Available [facility] [address] [facility] [address], [place], [address], 02/24/2024 00:36:18 02/21/2002/21/2024 CBC WITH AUTO- DIFFE RENTI AL absolute lymphocytes 2.37 10*3/ uL 0.70-3 .10 Not Available [facility] [address] [facility] [address], [place], [address], 02/24/2024 00:36:18 02/21/2002/21/2024 CBC WITH AUTO- DIFFE RENTI AL monocytes 7.0 % 4.0-12 .0 Not Available [facility] [address] [facility] [address], [place], [address], 02/24/2024 00:36:18 02/21/20 24 02/21/2024 CBC WITH AUTO- DIFFE RENTI AL absolute monocytes 0.53 10*3/ uL 0.10-0 .90 Not Available [facility] [address] [facility] [address], [place], [address], 02/24/2024 00:36:18 02/21/2002/21/2024 CBC WITH AUTO- DIFFE RENTI AL eosinophils 2.0 % 0.0-5. 0 Not Available [facility] [address] [facility] [address], [place], [address], 02/24/2024 00:36:18 02/21/2002/21/2024 CBC WITH AUTO- DIFFE RENTI AL absolute eosinophils 0.15 10*3/ uL 0.00-0 .40 Not Available [facility] [address] [facility] [address], [place], [address], 02/24/2024 00:36:18 02/21/20 24 02/21/2024 CBC WITH AUTO- DIFFE RENTI AL basophils 1.2 % 0.0-3. 0 Not Available [facility] [address] [facility] [address], [place], [address], 02/24/2024 00:36:18 02/21/2002/21/2024 CBC WITH AUTO- DIFFE RENTI AL absolute basophils 0.09 10*3/ uL 0.00-0 .20 Not Available [facility] [address] [facility] [address], [place], [address], 02/24/2024 00:36:18 02/21/2002/21/2024 CBC WITH AUTO- DIFFE RENTI AL imm. gran. 0.5 % 0.0-2. 0 Not Available [facility] [address] [place] [address] [address], [place], [address], 02/24/2024 00:36:18 02/21/20 24 02/21/2024 CBC WITH AUTO- DIFFE RENTI AL abs. imm. gran. 0.04 10*3/ uL 0.00-0 .10 Not Available [address], [place], [address], 02/24/2024 00:36:18 02/21/2002/21/2024 COMPR EHENS MANNY METAB OLIC PANEL sodium 136 mmol/ L 134-14 4 Not Available [facility] [address] [facility] [address], [place], [address], 02/24/2024 00:36:19 02/21/2002/21/2024 COMPR EHENS MANNY METAB OLIC PANEL potassium 4.5 mmol/ L 3.5-5. 2 Not Available [facility] [address] [facility] [address], [place], [address], 02/24/2024 00:36:19 02/21/2002/21/2024 COMPR EHENS MANNY METAB OLIC PANEL chloride 101 mmol/ L 98-107 Not Available [facility] [address] [facility] [address], [place], [address], 02/24/2024 00:36:19 02/21/2002/21/2024 COMPR EHENS MANNY METAB OLIC PANEL carbon dioxide (co2) 19.0 mmol/ L 18.0-2 9.0 Not Available [facility] [address] [facility] [address], [place], [address], 02/24/2024 00:36:19 02/21/2002/21/2024 COMPR EHENS MANNY METAB OLIC PANEL glucose 107 mg/dL 65-99 high Bessie l Fasti n - 99 mg/dL Impai red Fasti n - 125 mg/dL Diagn ostic of Diabe baylee: => 126 mg/dL Ameri can Diabe baylee [facility] i[facility] n, 2008 Not Available [facility] [address] [facility] [address], [place], [address], 02/24/2024 00:36:19 02/21/2002/21/2024 COMPR EHENS MANNY METAB OLIC PANEL urea nitrogen (BUN) 22 mg/dL 6-20 high Not Available [facility] [address], [place], [address], 02/24/2024 00:36:19 02/21/20 24 02/21/2024 COMPR EHENS MANNY METAB OLIC PANEL creatinine 0.97 mg/dL 0.76-1 .27 Not Available [facility] [address] [facility] [address], [place], [address], 02/24/2024 00:36:19 02/21/20 24 02/21/2024 COMPR EHENS MANNY METAB OLIC PANEL eGFR 90 mL/mi nute/ 1.73_ m2 >59 MDRD Study Equat ion: The calcu lated GFR is NOT appli cable for pedia tric (< 18 years old) and > 70 year old patie nts and patie nts that are NOT of [place] . Not Available [facility] [address] [facility] [address], [place], [address], 02/24/2024 00:36:19 02/21/2002/21/2024 COMPR EHENS MANNY METAB OLIC PANEL calcium 9.3 mg/dL 8.7-10 .2 Not Available [facility] [address] [facility] [address], [place], [address], 02/24/2024 00:36:19 02/21/2002/21/2024 COMPR EHENS MANNY METAB OLIC PANEL protein, total 6.7 gm/dL 6.4-8. 3 Not Available [facility] [address] [facility] [address], [place], [address], 02/24/2024 00:36:19 02/21/20 24 02/21/2024 COMPR EHENS MANNY METAB OLIC PANEL albumin 4.3 gm/dL 3.5-5. 2 Not Available [facility] [address] [facility] [address], [place], [address], 02/24/2024 00:36:19 02/21/20 24 02/21/2024 COMPR EHENS MANNY METAB OLIC PANEL bilirubin, total 0.60 mg/dL 0.00-1 .20 Not Available [facility] [address] [facility] [address], [place], [address], 02/24/2024 00:36:19 02/21/2002/21/2024 COMPR EHENS MANNY METAB OLIC PANEL alkaline phosphatase (ALP) 83 U/L 39-[address] [facility] [address] [facility] [address], [place], [address], 02/24/2024 00:36:19 02/21/2002/21/2024 COMPR EHENS MANNY METAB OLIC PANEL aspartate aminotransfe rase (AST) 36 U/L 0-40 Not Available [facility] [address] [facility] [address], [place], [address], 02/24/2024 00:36:19 02/21/20 24 02/21/2024 COMPR EHENS MANNY METAB OLIC PANEL alanine aminotransfe rase (ALT) 53 U/L 0-41 high Not Available [facility] [address] [facility] [address], [place], [address], 02/24/2024 00:36:19 02/21/2002/21/2024 COMPR EHENS MANNY METAB OLIC PANEL A/G ratio (calculated) 1.8 ratio 1.0-2. 7 Not Available [facility] [address] [facility] [address], [place], [address], 02/24/2024 00:36:19 02/21/2002/21/2024 COMPR EHENS MANNY METAB OLIC PANEL globulin (calculated) 2.4 gm/dL 1.5-3. 8 Not Available [facility] [address] [facility] [address], [place], [address], 02/24/2024 00:36:19 02/21/2002/21/2024 COMPR EHENS MANNY METAB OLIC PANEL BUN/creatini ne ratio (calculated) 22.7 ratio 8.0-20 .0 high Not Available [facility] [address] [facility] [address], [place], [address], 02/24/2024 00:36:19 02/21/2002/21/2024 COMPR EHENS MANNY METAB OLIC PANEL serum hemolysis index NORMAL index normal Not Available [facility] [address] [facility] [address], [place], [address], 02/24/2024 00:36:19 02/21/2002/21/2024 LIPID PANEL W/ CALC. LDL cholesterol, total 200 mg/dL 100-19 9 high Not Available [facility] [address] [facility] [address], [place], [address], 02/24/2024 00:36:20 02/21/2002/21/2024 LIPID PANEL W/ CALC. LDL HDL cholesterol 43 mg/dL =>[address] [facility] [address] [facility] [address], [place], [address], 02/24/2024 00:36:20 02/21/2002/21/2024 LIPID PANEL W/ CALC. LDL LDL cholesterol (calculated) 114 mg/dL 0-99 high Not Available [facility] [address] [facility] [address], [place], [address], 02/24/2024 00:36:20 02/21/2002/21/2024 LIPID PANEL W/ CALC. LDL triglyceride s 215 mg/dL 50-149 high Not Available [facility] [address] [facility] [address], [place], [address], 02/24/2024 00:36:20 02/21/20 24 02/21/2024 LIPID PANEL W/ CALC. LDL chol/HDL ratio (calculated) 4.65 ratio 0.00-5 .00 Not Available [facility] [address] [facility] [address], [place], [address], 02/24/2024 00:36:20 02/21/2002/21/2024 LIPID PANEL W/ CALC. LDL VLDL cholesterol (calculated) 43 mg/dL 5-40 high Not Available [facility] [address] [facility] [address], [place], [address], 02/24/2024 00:36:20 02/21/2002/21/2024 PROST ATE-S PECIF IC ANTIG EN (PSA) , TOTAL (SCRE ENING ) prostate-spe cific antigen, total 0.6 NG/mL 0.0-4. 0 ECLIA METHO DOLOG Y. RESUL TS FROM THIS METHO D IS NOT ALTA TIBLE WITH DIFFE RENT ASSAY METHO D AND CANNO T BE USED INTER SZYMANSKI EABLY . Not Available [facility] [address] [facility] [address], [place], [address], 02/24/2024 00:36:20 02/21/2002/21/2024 URINA LYSIS REFLE X TO URINE CULTU RE color COLORL ESS yellow Not Available [facility] [address] [facility] [address], [place], [address], 02/24/2024 00:36:21 02/21/2002/21/2024 URINA LYSIS REFLE X TO URINE CULTU RE appearance CLEAR clear Not Available [facility] [address] [facility] [address], [place], [address], 02/24/2024 00:36:21 02/21/20 24 02/21/2024 URINA LYSIS REFLE X TO URINE CULTU RE glucose NEGATI VE mg/dL negati ve Not Available [facility] [address] [facility] [address], [place], [address], 02/24/2024 00:36:21 02/21/2002/21/2024 URINA LYSIS REFLE X TO URINE CULTU RE bilirubin NEGATI VE negati ve Not Available [facility] [address] [facility] [address], [place], [address], 02/24/2024 00:36:21 02/21/2002/21/2024 URINA LYSIS REFLE X TO URINE CULTU RE blood NEGATI VE negati ve Not Available [facility] [address] [facility] [address], [place], [address], 02/24/2024 00:36:21 02/21/2002/21/2024 URINA LYSIS REFLE X TO URINE CULTU RE ketone NEGATI VE mg/dL negati ve Not Available [facility] [address] [place] [address] [address], [place], [address], 02/24/2024 00:36:21 02/21/2002/21/2024 URINA LYSIS REFLE X TO URINE CULTU RE specific gravity 1.010 1.005- 1.030 Not Available [facility] [address] [facility] [address], [place], [address], 02/24/2024 00:36:21 02/21/20 24 02/21/2024 URINA LYSIS REFLE X TO URINE CULTU RE pH 6.0 4.5 - 8.0 Not Available [facility] [address] [place] [address] [address], [place], [address], 02/24/2024 00:36:21 02/21/2002/21/2024 URINA LYSIS REFLE X TO URINE CULTU RE protein NEGATI VE mg/dL negati ve Not Available [facility] [address] [place] [address] [address], [place], [address], 02/24/2024 00:36:21 02/21/20 24 02/21/2024 URINA LYSIS REFLE X TO URINE CULTU RE urobilinogen 0.20 eu/dL 0.00-1 .00 Not Available [facility] [address] [facility] [address], [place], [address], 02/24/2024 00:36:21 02/21/2002/21/2024 URINA LYSIS REFLE X TO URINE CULTU RE nitrite NEGATI VE negati ve Not Available [facility] [address] [facility] [address], [place], [address], 02/24/2024 00:36:21 02/21/2002/21/2024 URINA LYSIS REFLE X TO URINE CULTU RE leukocyte esterase NEGATI VE negati ve Not Available [facility] [address] [facility] [address], [place], [address], 02/24/2024 00:36:21 02/21/2002/21/2024 URINA LYSIS REFLE X TO URINE CULTU RE color COLORL ESS yellow Not Available [facility] [address] [facility] [address], [place], [address], 02/24/2024 00:36:21 02/21/2002/21/2024 URINA LYSIS REFLE X TO URINE CULTU RE appearance CLEAR clear Not Available [facility] [address] [facility] [address], [place], [address], 02/24/2024 00:36:21 02/21/2002/21/2024 URINA LYSIS REFLE X TO URINE CULTU RE glucose NEGATI VE mg/dL negati ve Not Available [facility] [address] [facility] [address], [place], [address], 02/24/2024 00:36:21 02/21/2002/21/2024 URINA LYSIS REFLE X TO URINE CULTU RE bilirubin NEGATI VE negati ve Not Available [facility] [address] [facility] [address], [place], [address], 02/24/2024 00:36:21 02/21/2002/21/2024 URINA LYSIS REFLE X TO URINE CULTU RE blood NEGATI VE negati ve Not Available [facility] [address] [facility] [address], [place], [address], 02/24/2024 00:36:21 02/21/2002/21/2024 URINA LYSIS REFLE X TO URINE CULTU RE ketone NEGATI VE mg/dL negati ve Not Available [facility] [address] [facility] [address], [place], [address], 02/24/2024 00:36:21 02/21/2002/21/2024 URINA LYSIS REFLE X TO URINE CULTU RE specific gravity 1.010 1.005- 1.030 Not Available [facility] [address] [facility] [address], [place], [address], 02/24/2024 00:36:21 02/21/2002/21/2024 URINA LYSIS REFLE X TO URINE CULTU RE pH 6.0 4.5 - 8.0 Not Available [facility] [address] [facility] [address], [place], [address], 02/24/2024 00:36:21 02/21/20 24 02/21/2024 URINA LYSIS REFLE X TO URINE CULTU RE protein NEGATI VE mg/dL negati ve Not Available [facility] [address] [facility] [address], [place], [address], 02/24/2024 00:36:21 02/21/2002/21/2024 URINA LYSIS REFLE X TO URINE CULTU RE urobilinogen 0.20 eu/dL 0.00-1 .00 Not Available [facility] [address] [facility] [address], [place], [address], 02/24/2024 00:36:21 02/21/20 24 02/21/2024 URINA LYSIS REFLE X TO URINE CULTU RE nitrite NEGATI VE negati ve Not Available [facility] [address] [facility] [address], [place], [address], 02/24/2024 00:36:21 02/21/2002/21/2024 URINA LYSIS REFLE X TO URINE CULTU RE leukocyte esterase NEGATI VE negati ve Not Available [facility] [address] [facility] [address], [place], [address], 02/24/2024 00:36:21 04/28/20 24 04/28/2024 URIC ACID uric acid 4.6 mg/dL 3.7-8. 6 Not Available [facility] [address] [facility] [address], [place], [address], 04/30/2024 10:09:55 04/28/20 24 04/30/2024 D-DIM ER D-dimer 0.37 mg/L_ feu 0.00-0 .49 normal Accor ding to the assay manuf actur er's publi shed packa ge inser t, a bessie l (<0.5 0 mg/L FEU) D-dim er resul t in conju nctio n with a non-h igh clini rico proba bilit y asses sment , exclu hayden deep vein throm bosis (DVT) and pulmo nary embol ism (PE) with high sensi tivit y. D-dim er value s incre ase with age and this can make VTE exclu chevy of an older popul ation diffi cult. To addre ss this, the Ameri can Colle ge of Physi cians , based on best avail able evide nce and recen t guide lines , recom mends that clini cians use age-a djust ed D-dim er thres holds in patie nts great er than 50 years of age with: a) a low proba bilit y of PE who do not meet all Pulmo nary Embol ism Rule Out Crite kevin, or b) in those with inter media te proba bilit y of PE. The formu la for an age-a djust ed D-dim er cut-o ff is age/ 100 . For examp le, a 60 year old patie nt would have an age-a djust ed cut-o ff of 0.60 mg/L FEU and an 80 year old 0.80 mg/L FEU. Not Available [facility] [address], [place], [address], 04/30/2024 10:09:56 06/14/19 23 06/14/2022 marietta metry testi ng* No observ ation record ed. [facility], [facility] [address], [place], [address], 07/17/2022 17:58:01 07/19/19 CT, chest , w/ contr [facility] [address] [place] [address] Orderi ng Provid er: [facility] EXAM: CT CHEST W CON INDICA TION: Chest breath and cough. Palpab le right neck lump, suspec heraclio to repres ent suprac lavicu lar adenop athy. TECHNI QUE: Axial CT of the chest perfor med. Patien t receiv ed 100 cc Isovue -370 via a right antecu bital fossa venous cathet er with no advers e reacti on. [employer] al BB marker placed in the area of the palpab le lump. A radiat ion dose loweri ng techni que was used for this proced ure, which may includ e, but is not limite d to, dose reduct ion techni que, automa heraclio exposu re contro l, the use of iterat manny recons tructi on, ALARA (As Low As Reason ably Achiev able) techni ques, and Image Gently techni ques. COMPAR SYD EXAM: None FINDIN GS: Jerry blalesteros g to the BB marker , there is a border line sized and severa l nonenl arged right suprac lavicu lar lymph nodes. The border line enlarg ed node measur es 18 x 17 x 12 mm. No other thorac ic adenop athy. The lungs are clear. Pulmon jason outflo w tract and thorac ic and upper abdomi nal aorta are normal in calibe r. There is a probab le perica rdial cyst in the right perica rdial fat, measur ing 4.2 cm in cranio caudal dimens ion, 3.2 cm in anteri or glass cutter hand ior dimens ion and 1.6 cm in width. This measur es 9 Hounsf ield units. No perica rdial effusi on. Upper abdome n demons trates diffus e hepati c steato sis. There are bilate ral indete rminat e adrena l nodule s, possib ly adenom as. If desire d, noneme rgent outpat ient CT or MRI using the adrena l mass protoc ol may be consid ered. IMPRES CHEVY: MILDLY PROMIN ENT RIGHT SUPRAC LAVICU LAR LYMPH NODE CORRES PONDIN G TO THE PALPAB LE MASS DENOTE D BY THE BB MARKER . RIGHT PERICA RDIAL CYST. DIFFUS E HEPATI C STEATO SIS. INDETE RMINAT E BILATE RAL ADRENA L NODULE S, POSSIB LY ADENOM . Referr ed By: MARVEL Baumann onical ly Signed By: Curry solorio MD on 023 4:34 PM Interp reted By: Curry solorio MD, 023 4:22 PM [facility] 1 [facility], [place], [address], 10/16/2022 09:38:56 10/03/19 23 use echoc ardio gram W con [facility] [place] [address] Orderi ng Provid er: WILLY Helm rdiogr aphy Report Pat.Na me: JUANITA NOVAK Pat.ID : [id number] .Jian e: 10/03/19 23 Refer. : [id number] DONI RUIZ V Exam Time: 7:06:0 0 AM Study Type:E CHO WITH CARDIA C DOPPLE R COMP Height : 67 in Weight : 242 lb BSA: 2.19 m2 Age: [birth year],56 Y Sex: M BP: 142/82 HR: 78 bpm Sonogr phr: Golden weeks, RDCS Pat. Stat.: Outpat ient Reason for Study: Perica rdial cyst Proced ures: 2D, M-mode , Dopple r, Color Flow, Defini ty was used to enhanc e endoca rdial defini tion. The [facility] Race: W ++++++ ++++++ ++++++ ++++++ ++++++ ++++++ SUMMAR Y: ++++++ ++++++ ++++++ ++++++ ++++++ ++++++ The left ventri cular size is normal . The left ventri cular systol ic functi on is normal . Estima heraclio left ventri cular ejecti on fracti on is 60-65% . Left ventri cular diasto lic functi on is normal . Wall motion appear s normal in all segmen ts. The right ventri niall size is normal . The right ventri cular functi on is normal . No signif icant valvul ar abnorm alitie s. Perica rdial cyst not visual ized. ++++++ ++++++ ++++++ ++++++ ++++++ ++++++ FINDIN GS: ++++++ ++++++ ++++++ ++++++ ++++++ ++++++ LV: The left ventri cular size is normal . The left ventri cular systol ic functi on is normal . Estima heraclio left ventri cular ejecti on fracti on is 60-65% . No left ventri cular hypert rophy. Left ventri cular diasto lic functi on is normal . WM: Wall motion appear s normal in all segmen ts. RV: The right ventri niall size is normal . The right ventri cular functi on is normal . IVS: No eviden ce of ventri cular septal defect . LA: Left atrial size is normal . RA: The right atrial size is normal . IAS: Atrial septum appear s intact . JULISSA: Trivia l perica rdial effusi on is noted. AO: Aorta is normal . SVn: Inferi or vena cava is normal . Inferi or vena cava shows >50% collap se with respir ation consis tent with normal right atrial pressu re. AV: No eviden ce of aortic valve stenos is. No eviden ce of aortic regurg itatio n. MV: Trace mitral regurg itatio n. No eviden ce of mitral valve stenos is. PV: No eviden ce of pulmon ic valve stenos is. No eviden ce of pulmon ic regurg itatio n. TV: A trace of tricus pid regurg itatio n. Unable to grade right ventri cular systol ic pressu re. No eviden ce of tricus pid valve stenos is. ++++++ ++++++ ++++++ ++++++ ++++++ ++++++ MEASUR EMENTS : ++++++ ++++++ ++++++ ++++++ ++++++ ++++++ DOPPLE R LVOT LVOTpk PG 7 mmHg LVOTmn PG 3 mmHg LVOTpk Dieudonne 130 cm/s (70-11 0)* LVOT SV 83 ml LVOT TVI 24 cm Right Atrium RA Press 3 mmHg Simpso n's Disk 20 Pulmon jason Veins PVnpkV eld 45.7 cm/s PVnVs/ Vd 1.5 PVnpkV els 67.6 cm/s PVn A Dur 119 msec AV Forwar d Flow AV TVI 30.3 cm AV pkPG 9 mmHg AV pkVel 152 cm/s (100-1 70) Area (TVI) 2.74 cm2 (3-5)* AV mnPG 5 mmHg Area (Dieudonne) 2.96 cm2 (3-5)* MV Forwar d Flow MV DeTm 195 msec MV pkE 108 cm/s (60-13 0) MV E/A 1 MV pkA 108 cm/s PV Forwar d Flow PV pkVel 92.6 cm/s (60-90 )* PV AC 98 msec PV pkPG 3 mmHg Lat E' Lat e 11.1 cm/s Lat E/E' Lat E/e 9.7 Med E' Med e 8.81 cm/s Med E/E' Med E/e 12.3 Aortic Valve Aortic Valve Ar 1.25 Aortic Valve Ve 0.86 PV Antegr yves Flow Accele ration Sl 802 cm/s2 Right Ventri niall Right Ventri niall 13.6 cm/s 2D Left Ventri niall LVIDd 4.43 cm (3.6-5 .2) LV ESV 33.8 ml LVIDs 2.69 cm (2.3-3 .9) LV ESV 27.6 ml LngAxd 8.45 cm LVESV BP 30.6 ml LngAxd 8 cm LV EF 70.6 % LV EDV 115 ml LV EF 75.6 % LV EDV 112 ml LV EF BP 73.8 % LVEDV BP 117 ml LV SV 81.2 ml LngAxs 6.46 cm LV SV 85.4 ml LngAxs 6.57 cm LV SV BP 86.4 ml LVPW LVPWd 1.05 cm Ventri cular Septum IVSd 1.09 cm Left Atrium LA VOLBP 33.4 ml Aorta Ao Rtd 3.4 cm (zsc 1.1) Ao Asc 2.9 cm (zsc 0.9) LVOT LVOT 2.1 cm LVOTAr ea 3.46 cm2 Ratios IVS LA Biplan e LAVol I BP 15.3 ml/m2 RA Single Plane Right Atrium MO 8.63 mm Right Atrium Sy 25.1 ml Right Atrium Sy 46.8 mm Right Atrium Sy 11.5 ml/m2 Right Atrium Sy 11.8 cm2 Right Ventri niall Right Ventri niall 37.7 mm Right Ventri niall 35 mm Major Otis 71.4 mm MMODE TA Tricus pid Annul 23.8 mm 2022 01:17 PM Willy Gomez M.D. [address] 1 [facility], [place], [address], 10/16/2022 09:38:56 01/23/20 CT soft tissu e neck W con [facility] [place] [address] Orderi ng Provid er: SREE Mikala HOOVER EXAMIN ATION: CT soft tissue neck with contra st ACCESS ION: [id number] EXAM DATE/T SOCORRO: 023 6:55 AM REASON FOR EXAM: Follow up suprac lavicu lar adenop athy, compar e to CT chest to see if it has decras ed in size, no longer palpab le on exam Swelli ng, concer n for absces s/infe ction COMPAR SYD: CT chest 023 TECHNI QUE: CT examin ation of the neck was perfor med after admini strati on of intrav enous contra st, 100mL IOPAMI DOL 76 % IV SOLN. Axial and multip lanar reform atted images were obtain ed. A dose loweri ng techni que was used for this proced ure, which may includ e, but is not limite d to, dose reduct ion techni que, automa heraclio exposu re contro l, iterat manny recons tructi on, ALARA (As Low As Reason ably Achiev able), or Image Gently techni ques. FINDIN GS: Visual ized portio ns of the skull base demons trate no acute abnorm ality. Mastoi d air cells are clear. Visual ized parana elsa sinuse s are clear. The nasoph arynx and the oropha rynx are unrema rkable . No abnorm al displa cement of paraph arynge al fat pads. The epiglo ttis/s upragl ottic pharyn x, hypoph arynx and the larynx are grossl y unrema rkable . No thyroi d lesion s are demons trated . Subman dibula r and paroti d glands are unrema rkable . There is no eviden ce of focal inflam matory change nor absces s. Small nonspe cific cervic al lymph nodes are presen t bilate rally. No signif icant abnorm al enlarg ed cervic al lymph nodes. The abnorm al enlarg ed right suprac lavicu lar lymph node noted on the previo us study has resolv ed in the interi m. No signif icant abnorm al enlarg ed suprac lavicu lar lymph nodes are demons trated on the curren t study. Visual ized portio ns of the upper lungs demons trate no acute abnorm ality. Mild chroni c degene rative disc diseas e cervic al spine. =====I MPRESS ION:== === 1. No signif icant abnorm alitie s demons trated . There is been comple te interv al resolu tion of previo usly noted abnorm al enlarg ed right suprac lavicu lar lymph node. ====== ====== ====== === Ordere d By: SREE Baumann onical ly Signed By: Maria Antonia vigil MD on 023 9:33 AM Interp reted By: Maria Antonia vigil MD, 023 9:[address], [place], [address], 02/21/2024 10:19:39 04/26/20 23 04/16/2023 marietta metry testi ng* No observ ation record ed. [address], [facility] [address], [place], [address], 02/21/2024 10:19:38 Result Notes None recorded. Problems Name Problem SNOMED Code Status Onset Date Resolution Date Notes Provider Name and Address Organization Details Recorded Time Hyperlipid emia 98813432 Active 2022 Not Available [facility] 3 09:24:57 Obstructiv e sleep apnea of adult 7891021758140 Active 2022 Not Available [facility] 3 09:24:57 Asthma 066824828 Active 2022 Not Available [facility] 3 09:24:57 Pleuritic pain 1667454 Active 2022 Marvel Quinones MD [address], [place], [address] , [facility] - [facility] 3 09:28:17 Visual disturbanc e 99894268 Active 2022 Marvel Quinones MD [address], [place], [address] , [facility] 3 09:28:18 Bilateral heel pain 9044889964406 9108 Active 2022 Marvel Quinones MD [address], [place], [address] , [facility] 3 09:28:18 Cough 89703089 Active 2022 Marvel Quinones MD [address], [place], [address] , [facility] 3 09:35:04 Supraclavi cular lymphadeno ronnie 715152701 Active 2022 Marvel Quinones MD [address], [place], [address] , [facility] 3 09:43:39 Essential hypertensi on 83504975 Active 2022 Marvel Quinones MD [address], [place], [address] , [facility] 3 15:33:49 Hyperglyce waldo 72624528 Active 2022 Marvel Quinones MD [address], [place], [address] , [facility] 3 23:03:11 Pericardia l cyst 257655872 Active 2022 Marvel Quinones MD [address], [place], [address] , [facility] 3 06:55:02 Problem Notes None recorded. Procedures Surgical History None recorded. Imaging Results Imaging Date Name Status LastModified by Organization Details LastModified Time 06/14/2022 spirometry testing* completed [address], [facility] [address], [place], [address], 07/17/2022 17:58:01 07/18/2022 CT, chest, w/ contrast completed [address], [place], [address], 10/16/2022 09:38:56 10/02/2022 use echocardiogram W con completed [address], [place], [address], 10/16/2022 09:38:56 01/22/2023 CT soft tissue neck W con completed [address], [place], [address], 02/21/2024 10:19:39 04/16/2023 spirometry testing* completed [address], [facility] [address], [place], [address], 02/21/2024 10:19:38 Procedure Notes None recorded. Medical Equipment None Reported. Allergies No known drug allergies Medications Name Sig Start Date Stop Date Status Note LastModified by Organization Details LastModified Time amoxicillin 500 mg capsule TAKE 1 CAPSULE BY MOUTH EVERY 8 HOURS UNTIL GONE 06/18 completed Not Available Not Available Not Available benzonatate 200 mg capsule 1 pill once, up to 3 times day as needed; can cause drowsines s 2023 active Not Available Not Available Not Avai lable hydrocodone 5 mg-acetamin ophen 325 mg tablet Take 1 tablet every 8 hours by oral route as needed. 2023 active Not Available Not Available Not Avai lable meloxicam 15 mg tablet prn 06/06 completed Not Available Not Available Not Available codeine 10 mg-guaifene sin 100 mg/5 mL oral liquid 10 ml once, up to 3 times day as needed; can cause drowsines s 2023 active Not Available Not Available Not Avai lable telmisartan 20 mg tablet TAKE 1 TABLET BY MOUTH ONCE DAILY active Not Available Not Available No t Available albuterol sulfate HFA 90 mcg/actuati on aerosol inhaler 2 puffs up to 4 times a days as needed only; Must go to the Emergency Room if no relief after the 4th treatment . 2022 active Not Available Not Available Not Avai lable Arnuity Ellipta 50 mcg/actuati on powder for inhalation INHALE 1 PUFF ONCE DAILY (RINSE AND SPIT AFTER EACH USE) active Not Available Not Available No t Available Airsupra 90 mcg-80 mcg/actuati on HFA aerosol inhaler INHALE 2 PUFFS UP TO 4 TIMES DAILY NEEDED ONLY: MUST GO TO ER IF NO RELIEF AFTER THE 4TH TREATMENT active Not Available Not Available No t Available Vitals Date Recorded Body height Body mass index (BMI) Body weight Body temperature Respiratory rate Heart rate Systolic blood pressure Diastolic blood pressure Provider Name and Address Organization Details Last Updated DateTime 3 171.45 cm 40 kg/m2 440933. 42 g 97.4 [degF] 16 /min 75 /min 144 mm[Hg] 89 mm[Hg] Romi Walker [facility] 3 08:46:26 Date Recorded Body height Body mass index (BMI) Body weight Respiratory rate Body temperature Heart rate Systolic blood pressure Diastolic blood pressure Provider Name and Address Organization Details Last Updated DateTime 3 171.45 cm 38.1 kg/m2 928465. 32 g 16 /min 97.6 [degF] 91 /min 122 mm[Hg] 79 mm[Hg] [facility] 3 17:16:41 Date Recorded Body height Body mass index (BMI) Body weight Respiratory rate Body temperature Heart rate Systolic blood pressure Diastolic blood pressure Provider Name and Address Organization Details Last Updated DateTime 3 170.18 cm 36.6 kg/m2 733068. 61 g 16 /min 97.3 [degF] 78 /min 107 mm[Hg] 69 mm[Hg] [facility] 3 09:00:01 Date Recorded Heart rate Respiratory rate Body temperature Body weight Body mass index (BMI) Body height Systolic blood pressure Diastolic blood pressure Provider Name and Address Organization Details Last Updated DateTime 4 66 /min 16 /min 97.2 [degF] 064447. 83 g 40.4 kg/m2 170.18 cm 122 mm[Hg] 77 mm[Hg] Chrissie Mendes [facility] 4 09:07:19 Date Recorded Body height Heart rate Respiratory rate Body temperature Body mass index (BMI) Body weight Systolic blood pressure Diastolic blood pressure Provider Name and Address Organization Details Last Updated DateTime 4 170.18 cm 94 /min 16 /min 97.3 [degF] 40.9 kg/m2 972898. 61 g 141 mm[Hg] 81 mm[Hg] Romi Johnsondon [facility] 4 14:23:38 Social History Question Answer Notes LastModified by Organizat ion Details LastModified Time Tobacco Smoking Status Never Smoker [facility] 12/14/2020 14:10:39 What Is Your Level Of Alcohol Consumption? Heavy 24 Drinks/we ek Information not available 07/17/2022 What Is Your Level Of Caffeine Consumption? Moderate Information not available 12/12/2021 Are You Currently Employed? Yes Information not available 12/14/2020 What Is The Highest Grade Or Level Of School You Have Completed Or The Highest Degree You Have Received? [id number] Information not available 12/14/2020 What Was The Date Of Your Most Recent Tobacco Screening? 04/28/2024 [email or web address] Information not available 04/28/2024 What Is Your Relationship Status? Information not available 12/14/2020 Do You Use Any Illicit Or Recreational Drugs? No Information not available 12/14/2020 Do You Or Have You Ever Used Any Other Forms Of Tobacco Or Nicotine? No Information not available 12/14/2020 Sex: Unknown Functional Status None recorded. Mental Status None recorded. Family History Relationship Description Onset Age of this Age Resolved Age Notes LastModified by Organization Details LastModified Time Maternal Grandmother Alcoholism jbuske Not available 12:32:18 Paternal Grandfather Alcoholism jbuske Not available 12:32:19 Paternal Grandfather Heart disease -- had 1 heart attack around his lat 60s Not available 06/14/2022 09:47:19 Paternal Grandmother Diabetes mellitus Not available 14:06:09 Father Diabetes mellitus Not available 14:06:09 Father Dementia father in law/// jbuske Not available 04/28/2024 12:32:19 Mother Heart disease -- with unknow n heart condit ion Not available 06/14/2022 09:46:39 Mother Cerebrovascu lar accident jbuske Not available 12:32:19 Notes:-- no FH for any kind of cancers from either side of his family Medical History No medical history recorded. Immunizations Vaccine Type Date Status Note Provider Nam e and Address Organization Details Recorded Time COVID-19, mRNA, LNP-S, PF, 30 mcg/0.3 mL dose 1 completed Not Available [facility] 05/08/2023 08:40:59 COVID-19, mRNA, LNP-S, PF, 30 mcg/0.3 mL dose 1 completed Not Available [facility] 05/08/2023 08:40:59 zoster recombinant 3 completed Romi kim [facility] 04/28/2024 14:25:16 Tdap 3 completed Romi kim [facility] 04/28/2024 14:25:36 zoster recombinant 3 completed Romi kim [facility] 04/28/2024 14:25:49 Past Encounters Encounter ID Performer Location Encounter Start Date Encounter Closed Date Diagnosis/Indication Diagnosis SNOMED-CT Code Diagnosis ICD10 Code [id number] Marvel Quinones MD [facility], [facility] [address] [place] [address] 12/14/2020 13:43:55 12/14/2020 15:30:44 Obstructive sleep apnea of adult 3491482565 103 G47.33 Visual disturbance 05940 001 H53.9 Fatigue 70651822 R53.83 Low back pain 024525239 M54.5 Alcohol in take above recommended sensible limits 517874625 F10.10 Restless legs 05054908 G 25.81 Hepatitis C screening 41 4833991 Z11.59 Body mass index 30+ - obesity 458414024 Z68.39 Active or passive immunization 093864867 Z23 Screening for malignant neoplasm of colon 669163796 Z12.11 Screening for malignant neoplasm of prostate 552991125 Z12.5 Bilateral heel pain 1563 639032 3604177 M79.671 M79.672 [id number] Marvel Quinones MD [facility] [employer], [facility] [address] [place] [address] 01/11/2021 11:55:48 01/11/2021 14:05:27 Adult health examination 595272430 Z00.00 Obstructiv e sleep apnea of adult 2373281007 103 G47.33 Visual disturbance 04655 001 H53.9 Fatigue 94304290 R53.83 Alcohol in take above recommended sensible limits 733481610 F10.10 Low back pain 075600662 M54.5 Restless legs 45448746 G 25.81 Bilateral heel pain 1563 321519 7469498 M79.671 M79.672 Body mass index 30+ - obesity 395062122 Z68.39 Hepatitis C screening 41 9732403 Z11.59 Active or passive immunization 950228831 Z23 Screening for malignant neoplasm of colon 473216360 Z12.11 Screening for malignant neoplasm of prostate 709921754 Z12.5 Hyperglycemia 51744508 R 73.9 [id number] Marvel Quinones MD [facility] [employer], [employer] [address] [place] [address] 02/28/2021 11:59:12 02/28/2021 13:33:27 Obstructive sleep apnea of adult 9302527712 103 G47.33 [id number] Marvel Quinones MD [facility] [employer], [employer] [address] [place] [address] 06/06/2021 11:57:24 06/06/2021 13:46:46 Hyperglycemia 48480639 R73.9 Obstructiv e sleep apnea of adult 5050505629 103 G47.33 Visual disturbance 68881 001 H53.9 Fatigue 59892516 R53.83 Alcohol in take above recommended sensible limits 718991777 F10.10 Low back pain 506481863 M54.51 Restless legs 12009112 G 25.81 Bilateral heel pain 1563 730181 5516698 M79.671 M79.672 Hepatitis C screening 41 3514300 Z11.59 Active or passive immunization 520258052 Z23 Screening for malignant neoplasm of colon 244102368 Z12.11 Screening for malignant neoplasm of prostate 968368733 Z12.5 Body mass index 40+ - severely obese 444225626 Z68.41 Hyperlipid emia screening 928805920 Z13.220 [id number] Marvel Quinones MD [facility], [facility] [address] [place] [address] 10/26/2021 10:04:01 10/26/2021 11:55:38 Hyperglycemia 03860981 R73.9 Obstructiv e sleep apnea of adult 0629980031 103 G47.33 Visual disturbance 65442 001 H53.9 Bilateral heel pain 1563 167343 8117195 M79.671 M79.672 Hepatitis C screening 41 6695885 Z11.59 Active or passive immunization 986454504 Z23 Screening for malignant neoplasm of colon 685785492 Z12.11 Screening for malignant neoplasm of prostate 492888276 Z12.5 Asthma 994034597 J45.90 9 Pleuritic pain 7041837 R 07.81 Serum crea tinine above reference range 325089771 R79.89 Body mass index 30+ - obesity 205281246 Z68.39 Hyperlipidemia 23699417 E78.5 [id number] [facility], [facility] [address] [place] [address] 12/12/2021 09:03:09 12/12/2021 09:38:18 Pleuritic pain 1640790 R07.81 Hyperlipidemia 73835624 E78.5 Obstructiv e sleep apnea of adult 1900815833 103 G47.33 Asthma 627244036 J45.90 9 Visual disturbance 98894 001 H53.9 Bilateral heel pain 1563 314906 9183100 M79.671 M79.672 Body mass index 30+ - obesity 849849559 Z68.38 Hepatitis C screening 41 4299139 Z11.59 Active or passive immunization 259868236 Z23 Screening for malignant neoplasm of colon 878763163 Z12.11 Screening for malignant neoplasm of prostate 031703932 Z12.5 [id number] Marvel Quinones MD [facility] [facility], [facility] [address] [place] [address] 06/14/2022 08:38:00 06/14/2022 10:47:06 Hyperlipidemia 59662339 E78.5 Obstructiv e sleep apnea of adult 2048005844 103 G47.33 Asthma 028949896 J45.90 9 Visual disturbance 05588 001 H53.9 Bilateral heel pain 1563 694170 8869096 M79.671 M79.672 Hepatitis C screening 41 7345594 Z11.59 Active or passive immunization 650316229 Z23 Screening for malignant neoplasm of colon 750609785 Z12.11 Screening for malignant neoplasm of prostate 712105495 Z12.5 Cough 73235330 R05.9 HIV screening 220911450 Z11.4 Supraclavi cular lymphadenopathy 634869349 R59.0 Body mass index 40+ - severely obese 267235444 Z68.41 [id number] Marvel Quinones MD [facility], [facility] [address] [place] [address] 07/17/2022 15:44:34 07/17/2022 17:57:45 Adult health examination 282896096 Z00.00 Cough 81286010 R05.9 Supraclavi cular lymphadenopathy 154563812 R59.0 Hyperlipidemia 33015511 E78.5 Obstructiv e sleep apnea of adult 1615700234 103 G47.33 Asthma 258124378 J45.90 9 Visual disturbance 08100 001 H53.9 Bilateral heel pain 1563 082778 9444174 M79.671 M79.672 Hepatitis C screening 41 2694584 Z11.59 HIV screening 034885449 Z11.4 Active or passive immunization 507348137 Z23 Screening for malignant neoplasm of colon 457134872 Z12.11 Screening for malignant neoplasm of prostate 127290467 Z12.5 Body mass index 30+ - obesity 849876733 Z68.38 Diabetes m ellitus screening 419206670 Z13.1 [id number] Marvel Quinones MD [facility], [facility] [address] [place] [address] 10/16/2022 08:52:44 10/16/2022 09:39:26 Supraclavicular lymphadenopathy 204019537 R59.0 Hyperlipidemia 20063677 E78.5 Obstructiv e sleep apnea of adult 6852145738 103 G47.33 Asthma 322851284 J45.90 9 Visual disturbance 00263 001 H53.9 Bilateral heel pain 1563 643876 6842630 M79.671 M79.672 Body mass index 30+ - obesity 788128658 Z68.36 Diabetes m ellitus screening 040776786 Z13.1 Hepatitis C screening 41 4801579 Z11.59 HIV screening 674735638 Z11.4 Active or passive immunization 919424693 Z23 Screening for malignant neoplasm of colon 987393196 Z12.11 Screening for malignant neoplasm of prostate 288221715 Z12.5 Essential hypertension 42155902 I10 [id number] Marvel Quinones MD [employer] [address] [place] [address] 02/21/2024 08:55:15 02/21/2024 10:10:19 Adult health examination 125020242 Z00.00 Essential hypertension 87341408 I10 Supraclavi cular lymphadenopathy 163207387 R59.0 Hyperlipidemia 73617588 E78.5 Obstructiv e sleep apnea of adult 4202585382 103 G47.33 Asthma 374783644 J45.90 9 Bilateral heel pain 1563 989443 8271296 M79.671 M79.672 Diabetes m ellitus screening 136702833 Z13.1 Hepatitis C screening 41 5021919 Z11.59 HIV screening 531360662 Z11.4 Active or passive immunization 047390521 Z23 Screening for malignant neoplasm of colon 139238227 Z12.11 Screening for malignant neoplasm of prostate 531883402 Z12.5 Body mass index 40+ - severely obese 890355767 Z68.41 Left flank pain 78985025 9 R10.9 Lumbar radiculopathy 128 006069 M54.16 [id number] Marvel Quinones MD [employer], [employer] [address] [place] [address] 04/28/2024 12:30:44 04/28/2024 15:16:41 Cough 10618975 R05.1 Chest wall pain 17683937 6 R07.89 Pain of to e of right foot 6212346852 46437 M79.674 Obstructiv e sleep apnea of adult 2852868720 103 G47.33 [facility] 81812906 E78.5 Health Concerns Section Related Observation LastModified by Organization Detai ls LastModified Time None Recorded Concern Status LastModified by Organization Details LastModified Time None Recorded Advance Directives Directive None Recorded Payers Encounter Date Sequence Insurance Name Policy Number Policy Snider Covered Member ID Snider Member ID Guarantor Name 06/14/2022 1 [employer] - ALLIED BENEFITS - OPEN ACCESS [id number] Juanita Kishore [id number] Juanita Kishore 07/17/2022 1 [employer] - ALLIED BENEFITS - OPEN ACCESS [id number] Juanita Kishore [id number] Juanita Kishore 10/16/2022 1 [employer] - ALLIED BENEFITS - OPEN ACCESS [id number] Juanita Kishore [id number] Juanita Kishore 02/21/2024 1 [employer] [id number] Juanita Kishore [id number] Juanita Kishore 04/28/2024 1 [employer] [id number] Juanita Kishore [id number] Juanita Kishore Notes Date Note Type Note Provider Name and Address Organization Details Recorded Time 06/14/2022 text/html Pt comes in for routine f/u. He had a cough that started on 06/08/22 (improving) and on same day found a lump on Rt supraclavicular are. Minimally tender. NO f/c, chest discomfort, MOSES/SOB. He has no family of any kind of cancer and does not smoke. Pt reports he is around smokers due to work. Pt feels well and has no c/o. Pt has no new sx and no increasing sx. Patient denies any jaw or neck discomfort, left arm pain/left arm discomfort, chest discomfort/pain, diaphoresis, breathing symptoms/chest tightness, indigestion sx, n/v, any angina equivalent symptoms, etc. Marvel Quinones MD [address] [facility] [address], [place], [address], [facility] - [facility] 06/14/2022 09:54:32 07/17/2022 text/html Pt comes in for f/u of cough (markedly improved) w/ residual dry cough. No f./c, or night sweating. Pt also due for his annual PE. Pt feels well and has no c/o. Pt has no new sx and no increasing sx. Patient denies any jaw or neck discomfort, left arm pain/left arm discomfort, chest discomfort/pain, diaphoresis, breathing symptoms/chest tightness, indigestion sx, n/v, any angina equivalent symptoms, etc. Marvel Quinones MD [address], [place], [address], [facility] 07/17/2022 17:59:22 10/16/2022 text/html Pt comes in for f/u HTN, HLD, COLTEN, Asthma, supraclavicular LN (gone), and weight monitoring. Pt feels well and has no c/o. Pt has no new sx and no increasing sx. Patient denies any jaw or neck discomfort, left arm pain/left arm discomfort, chest discomfort/pain, diaphoresis, breathing symptoms/chest tightness, indigestion sx, n/v, any angina equivalent symptoms, etc. Marvel Quinones MD [address], [place], [address], [facility] 10/16/2022 09:39:13 02/21/2024 text/html Pt comes in for left flank pain and right posterior thigh pain (with prolonged driving). Pt also here for f/u of HTN, HLD, COLTEN, Asthma, and weight monitoring. Pt is also due for Pt feels well and has no c/o. Pt has no new sx and no increasing sx. Patient denies any jaw or neck discomfort, left arm pain/left arm discomfort, chest discomfort/pain, diaphoresis, breathing symptoms/chest tightness, indigestion sx, n/v, any angina equivalent symptoms, etc. Marvel Quinones MD [address], [place], [address], [facility] 02/21/2024 10:22:17 04/28/2024 text/html 3 days ago, pt started with cough. No f/c, n/v, bodyaches or diarrhea. Pt was coughing very hard 2 nights ago. Pt took his 's old Hydrocodone 5/325 and pain improved a little. Pt was evaluate at [facility] in [place] [phone]. Marvel Quinones MD [address] [place] [address], [place], [address], [facility] 04/28/2024 15:15:20
--- OUTSIDE RECORDS SUMMARY | 2024-05-05 00:10 | XMS_ITS | Encounter Summary ---
Author Organization [facility] Address [address] [place] [address]. [place] [address] [place] [address] Care Team Providers Care Woodwork Salvage Inspector Name Role Phone Willy Gomez MD Unavailable [phone] John Quinones MD Primary Care Provider [phone] Reason for Visit * Reason Comments Follow Up * Consultation/Treatment (Routine) - Closed Specialty Diagnoses / Procedures Referred By Contact Referred To Contact SLEEP & RESPIRATORY CARE Diagnoses Localized enlarged lymph nodes John Quinones MD [address] [place] [address] Phone: tel: fax: [address], [address] [place] [address] Phone: tel: fax: Referral ID Status Reason Start Date Expiration Date Visits Re quested Visits Authorized [id number] Closed 07/20/2022 07/21/2023 99 99 Encounter Details Date Type Department Care Team (Late st Contact Info) Description 05/07/2023 11:40 AM FRONT END ENGINEER Office Visit [address], [address] [place] [address] Fred Lanza MD [address] [address] Follow Up Social History Tobacco Use Types Packs/Day Years Used Date Smoking Tobacco: Never Smokeless Tobacco: Never Tobacco Cessation:Counseling Given: Yes Alcohol Use Standard Drinks/Week Comments Yes 33.3 [...] on file documented as of this encounter Last Filed Vital Signs Vital Sign Reading Time Taken Comments Blood Pressure 128/80 05/07/2023 11:36 AM FRONT END ENGINEER Pulse 85 05/07/2023 11:36 AM FRONT END ENGINEER Temperature 36.6 ??C (97.8 ??F) 05/07/2023 11:[address] Respiratory Rate 18 05/07/2023 11:36 AM FRONT END ENGINEER Oxygen Saturation 98% 05/07/2023 11:36 AM FRONT END ENGINEER RA Inhaled Oxygen Concentration - - Weight 112.5 kg (248 lb) 05/07/2023 11:36 AM FRONT END ENGINEER Height 170.2 cm (5' 7 ) 05/07/2023 11:36 AM FRONT END ENGINEER Body Mass Index 38.84 05/07/2023 11:36 AM FRONT END ENGINEER documented in this encounter Patient Instructions * Patient Instructions* Fred Lanza MD - 05/07/2023 11:40 AM FRONT END ENGINEER Trial of Arnuity 1 puff a day. Rinse gargle and spit after use Follow-up with me in 6 months T END ENGINEER documented in this encounter Progress Notes * Fred Lanza MD - 05/07/2023 11:40 AM CST Images from the original note were not included. [facility] PULMONARY MEDICINE History Chief Complaint Patient presents with Follow Up Referring provider: John Quinones MD 05/07/2023 OV: No change in his symptoms since last visit, chronic cough still present. 12/14/2022 OV: Asad Novak is a 57-year-old male with a past medical history of asthma, hypertension, sleepapnea who is referred to pulmonary clinic for evaluation of adenopathy. Several months ago he had a CT scan of his chest due to palpable supraclavicular adenopathy. It didshow an enlarged right-sided supraclavicular lymph node. He was sent to pulmonary medicine for this. Since this evaluation the palpable lesion has regressed. Has not had repeat imaging yet. No significant symptoms at this time. With regards to respiratory symptoms he does have a chronic cough that has been present since aboutage 16. Does not seem to get better or worse over that time. Occasionally he uses albuterol which he uses due to diagnosis of asthma made at the age of 15 or 16 years old. He was told he had exercise-induced asthma. Denies phlegm production. Denies dyspnea. Denies wheezing. Denies prior hospitalization due to asthma. Never smoker. 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 2 dogs and 1 cat at home. Past Medical History: Diagnosis Date Asthma Chest tightness Essential (primary) hypertension Sleep apnea Past Surgical History: Procedure Laterality Date NONE Social History Tobacco Use Smoking status: Never Smokeless tobacco: Never Vaping Use Vaping Use: Never used Substance Use Topics Alcohol use: Yes Alcohol/week: 33.3 standard drinks of alcohol Types: 20 Cans of beer per week Comment: beer Drug use: No Family History Problem Relation Name Age of Onset Stroke Mother Mago Mcdermott Diabetes Mother Mago Mcdermott Heart Attack Father Heart Attack Paternal Grandmother Drug Abuse Brother Willy Novak Current Outpatient Medications Medication Sig Dispense Refill Fluticasone Furoate (ARNUITY ELLIPTA) 50 MCG/ACT AEROSOL POWDER, BREATH ACTIVATED Inhale 1 puff into the lungs daily. Rinse and spit after use 90 each 3 telmisartan (MICARDIS) 20 MG Tab albuterol sulfate HFA 108 (90 Base) MCG/ACT inhaler albuterol sulfate HFA 90 mcg/actuation aerosol inhaler 2 puffs up to 4 times a days as needed only; Must go to the Emergency Room if no relief after the 4th treatment. (Patient not taking: Reported on 05/07/2023) No current facility-administered medications for this visit. Review of patient's allergies indicates: No Known Allergies Immunization History Administered Date(s) Administered PFIZER COVID-19 (ORIGINAL FORMULATION, PURPLE CAP) mRNA, LNP-S, PF, 30 MCG/0.3 ML DOSE 08/04/2020, 08/26/2020 Review of Systems Constitutional: Negative for chills, fever and weight loss. HENT: Negative for ear pain, hearing loss and nosebleeds. Eyes: Negative for blurred vision, double vision and redness. Respiratory: Negative for cough, hemoptysis, sputum production, shortness of breath and wheezing. Cardiovascular: Negative for chest pain, palpitations, orthopnea, leg swelling and PND. Gastrointestinal: Negative for heartburn, nausea and vomiting. Genitourinary: Negative for dysuria, frequency and urgency. Musculoskeletal: Negative for myalgias. Skin: Negative for rash. Neurological: Negative for dizziness, tingling and headaches. Endo/Heme/Allergies: Does not bruise/bleed easily. Psychiatric/Behavioral: Negative for depression and suicidal ideas. Physical Exam Filed Vitals: 05/07/23 1136 BP: 128/80 Pulse: 85 Resp: 18 Temp: 97.8 ??F (36.6 ??C) TempSrc: Temporal SpO2: 98% Weight: 112.5 kg (248 lb) Height: 1.702 m (5' 7 ) Body mass index is 38.84 kg/m??. Physical Exam: General: Alert, pleasant, in NAD Neuro: Alert, appropriate Psych: Affect normal Head: NC, AT EENT: No Sinus tenderness to palpation, mallampati 3 Neck: Supple Lymph: No appreciable cervical lymphadenopathy Respiratory: Normal bilateral breath sounds. Cardiovascular: s1,s2, rrr, no audible murmur GI: non-distended, bs+ Musc: Bilateral wrist ROM wnl Ext: no edema, no clubbing Skin: No visible rashes, No visible tattoos PFTs: 04/16/2023 Prebronchodilator FEV1 2.67 L, 77% predicted. FVC 3.31 L, 75% predicted. FEV1/FVC ratio 81% Postbronchodilator FEV1 2.89 L, 84% predicted. FVC 3.38 L, 77% predicted. FEV1/FVC ratio 85%. TLC 5.42 L, 80%. RV 1.83 L, 92%. DLCO 82% Sleep Studies: None for review CT Chest 07/18/2022 Images personally reviewed. No concerning adenopathy or findings within the chest. There is supraclavicular adenopathy. CT neck 01/22/2023 Per radiology no significant abnormalities demonstrated, complete interval resolution of previouslynoted abnormal enlarged right supraclavicular lymph node. 2D Echocardiogram 10/02/2022 Ejection fraction 60 to 65% Pertinent Labs Reviewed [place] Sleepiness Scale Score: No data to display Assessment Supraclavicular adenopathy Mild persistent asthma Sleep apnea history Plan -Supraclavicular adenopathy resolved, no further imaging needed - Trial Arnuity 50 mcg 1 puff daily. Rinse gargle and spit after use Return in about 6 months (around 11/05/2023). Fred Lanza MD T END ENGINEER documented in this encounter Plan of Treatment Upcoming Encounters Date Type Department Care Team (Late st Contact Info) Description 11/17/2024 8:45 AM CDT Office Visit [facility], [facility] [address] [place], [place] [id number] Stan Wan NP Three [facility] [address] [place] [address] documented as of this encounter Visit Diagnoses Diagnosis Chronic cough- Primary Cough Supraclavicular adenopathy Enlargement of lymph nodes documented in this encounter Care Teams Woodwork Salvage Inspector Relationship Specialty Start Date End Date John Quinones MD [address] [place], [place] [address] PCP - General INTERNAL MEDICINE 10/21/21 Willy Gomez MD [facility]. [facility] [address] [place], [place] [address] [place] Water Resource Agent CARDIOVASCULAR DISEASE 12/11/17 documented as of this encounter
--- OUTSIDE RECORDS SUMMARY | 2024-05-05 00:10 | XMS_ITS | Encounter Summary ---
Author Organization [facility] - [facility] Address [address] [place] [address]. [place] [address] [place] [address] Care Team Providers Care Kiln Tender Name Role Phone Willy Gomez MD Unavailable [phone] John Quinones MD Primary Care Provider [phone] Reason for Visit * Reason Onset Date Comments Results 01/22/2023 Encounter Details Date Type Department Care Team (Late st Contact Info) Description 01/22/2023 Telephone [facility] Medical [facility]ial[facility] - [facility] [address] [facility] [place] [address] Fred Lanza MD [facility] [address] [place], [place] [id number] Results Social History Tobacco Use Types Packs/Day Years [...] on file documented as of this encounter Progress Notes * Ken Aparicio RN - 01/31/2023 2:48 PM CDT Spoke with patient at this time. Patient okay with being rescheduled to after PFT. Patient Novemberappointment cancelled. Patient rescheduled to 05/07/2023 at 11:40 am at [facility]. Patient verbalized understanding * Dora Conteh CRT - 01/22/2023 10:19 AM CDT Called patient and LMOM for patient to call back or to check his [place] message * Dora Conteh CRT - 01/22/2023 10:18 AM CDT ----- Message from Fred Lanza MD sent at 01/22/2023 9:54 AM CDT ----- Please let him know that the previously seen enlarged lymph node is no longer present. He does not require any further follow up or evaluation for this, he should follow up with his primary care provider. He should still follow up with me after his PFT which is scheduled for 04/16/2023. Fred Lanza MD documented in this encounter Plan of Treatment Upcoming Encounters Date Type Department Care Team (Late st Contact Info) Description 11/17/2024 8:45 AM CDT Office Visit [facility] THREE [facility], [facility] [address] [place] [address] Stan Wan NP Three [facility] [address] [place], [place] [id number] documented as of this encounter Visit Diagnoses Not on filedocumented in this encounter Care Teams Kiln Tender Relationship Specialty Start Date End Date John Quinones MD [address] [place] [address] PCP - General INTERNAL MEDICINE 10/21/21 Willy Gomez MD [facility]. [facility] [address] [place] [address] [facility] Case Manager CARDIOVASCULAR DISEASE 12/11/17 documented as of this encounter
--- OUTSIDE RECORDS SUMMARY | 2024-05-05 00:10 | XMS_ITS | Encounter Summary ---
Author Organization [facility] Address [address] [place] [address]. [place] [address] [place] [address] Care Team Providers Care Claims Counsel Name Role Phone Willy Gomez MD Unavailable [phone] John Quinones MD Primary Care Provider [phone] Encounter Details Date Type Department Care Team (Latest Contact Info) Description 02/18/2024 Travel Social History Tobacco Use Types Packs/Day [...] Description 11/17/2024 8:45 AM CDT Office Visit [facility] THREE [facility] [place], [facility] [address] [place], [place] [id number] Stan Wan, [facility] [address] [place], [place] [id number] documented as of this encounter Visit Diagnoses Not on filedocumented in this encounter Care Teams Claims Counsel Relationship Specialty Start Date End Date John Quinones MD [address] [place] [address] PCP - General INTERNAL MEDICINE 10/21/21 Willy Gomez MD Three [facility]. [facility] [address] [place] [address] [place] Unit Manager CARDIOVASCULAR DISEASE 12/11/17 documented as of this encounter
--- OUTSIDE RECORDS SUMMARY | 2024-05-05 00:10 | XMS_ITS | Encounter Summary ---
Author Organization [facility] Address [address] [place] [address]. [place] [address] [place] [address] Care Team Providers Care Preschool Assistant Name Role Phone Willy Gomez MD Unavailable [phone] John Quinones MD Primary Care Provider [phone] Encounter Details Date Type Department Care Team (Latest Contact Info) Description 12/14/2022 Travel Social History Tobacco Use Types Packs/Day [...] Description 11/17/2024 8:45 AM CDT Office Visit [place] [facility] THREE [facility] [address] [place], [place] [id number] Stan Wan, SANDIE [facility] [address] [place], [place] [id number] documented as of this encounter Visit Diagnoses Not on filedocumented in this encounter Care Teams Preschool Assistant Relationship Specialty Start Date End Date John Quinones MD 1 [place] [address] PCP - General INTERNAL MEDICINE 10/21/21 Willy Gomez MD Three [facility]. [address] [place] [address] [employer] Natural [employer] Professor CARDIOVASCULAR DISEASE 12/11/17 documented as of this encounter
--- OUTSIDE RECORDS SUMMARY | 2024-05-05 00:10 | XMS_ITS | Encounter Summary ---
Author Organization [facility] Address [address] [place] [address]. [place] [address] [place] [address] Care Team Providers Care Systems Architecture Analyst Name Role Phone Willy Gomez MD Unavailable [phone] John Quinones MD Primary Care Provider [phone] Encounter Details Date Type Department Care Team (Latest Contact Info) Description 02/12/2023 Travel Social History Tobacco Use Types Packs/Day [...] Description 11/17/2024 8:45 AM CDT Office Visit [place] [facility] THREE [facility], [facility] [address] [place], [place] [id number] Stan Wan, SANDIE [facility] [address] [place], [place] [phone] documented as of this encounter Visit Diagnoses Not on filedocumented in this encounter Care Teams Systems Architecture Analyst Relationship Specialty Start Date End Date John Quinones MD 1 [place] [address] PCP - General INTERNAL MEDICINE 10/21/21 Willy Gomez MD Three [facility]. [address] [place] [address] [place] Devil Dog CARDIOVASCULAR DISEASE 12/11/17 documented as of this encounter
--- OUTSIDE RECORDS SUMMARY | 2024-05-05 00:10 | XMS_ITS | Encounter Summary ---
Author Organization [facility] Address [address] [place] [address]. [place] [address] [place] [address] Care Team Providers Care String Laster Name Role Phone Willy Gomez MD Unavailable [phone] John Quinones MD Primary Care Provider [phone] Encounter Details Date Type Department Care Team (Latest Contact Info) Description 04/16/2023 Travel Social History Tobacco Use Types Packs/Day [...] Description 11/17/2024 8:45 AM CDT Office Visit [place] [facility] THREE [facility], [facility] [address] [place], [place] [phone] Stan Wan, SANDIE [facility] [address] [place], [place] [phone] documented as of this encounter Visit Diagnoses Not on filedocumented in this encounter Care Teams String Laster Relationship Specialty Start Date End Date John Quinones MD 1 [place] [address] PCP - General INTERNAL MEDICINE 10/21/21 Willy Gomez MD Three [facility]. [address] [place] [address] [place] Oriental Rug Stretcher CARDIOVASCULAR DISEASE 12/11/17 documented as of this encounter
--- OUTSIDE RECORDS SUMMARY | 2024-05-05 00:10 | XMS_ITS | Clinical Summary ---
Author Organization [facility] Address [facility] [place] [address] [place] [address] Care Team Providers Care Death Claim Examiner Name Role Phone Willy Gomez MD Unavailable [phone] John Quinones MD Primary Care Provider [phone] Allergies No known active allergies Medications telmisartan (MICARDIS) 20 MG Tab Take 1 tablet (20 mg total) by mouth daily. 06/19/2022 Active Fluticasone Furoate (ARNUITY ELLIPTA) 50 MCG/ACT AEROSOL POWDER, BREATH ACTIVATEDIndicat ions:Chronic cough Inhale 1 puff into the lungs daily. Rinse and spit after use 90 each 3 05/07/2023 Active Active Problems Problem Noted Date Diagnosed Date Pericardial cyst (HHS/HCC) 07/19/2022 Essential hypertension 06/18/2022 Hyperglycemia 06/18/2022 Hyperlipidemia 06/14/2022 Pleuritic pain 06/14/2022 Supraclavicular lymphadenopathy 06/14/2022 Resolved Problems Problem Noted Date Diagnosed Date Resolved Date Chest tightness 02/14/2024 Encounters Date Type Department Care Team Description 02/18/2024 8:30 AM CDT [facility] [address] [address] Stan Wan, PATIENTS TRANSPORTER Follow Up 02/18/2024 Travel from Last 3 Months Family History Medical History Relation Comments Drug Abuse Brother 3 Heart Attack Father Dementia Mother Diabetes Mother Stroke Mother Heart Attack Paternal Grandmother Relation Status Comments Brother 1 (Age 53) Brother 2 Alive Brother 3 Father (Age 63) Maternal Grandmother (Age 77) Mother Paternal Grandfather (Age 72) Paternal Grandmother (Age 84) Sister Alive Social History Tobacco Use Types Packs/Day Years Used Date Smoking Tobacco: Never Smokeless Tobacco: Never Tobacco Cessation:Counseling Given: Not Answered Alcohol Use Standard Drinks/Week Comments Yes 33.3 [...] file Not on file Not on file Last Filed Vital Signs Vital Sign Reading Time Taken Comments Blood Pressure 142/92 02/18/2024 8:29 AM CDT Pulse 94 02/18/2024 8:29 AM CDT Temperature 36.6 ??C (97.8 ??F) 05/07/2023 11:[address] Respiratory Rate 18 05/07/2023 11:36 AM PATIENTS TRANSPORTER Oxygen Saturation 97% 02/18/2024 8:29 AM CDT Inhaled Oxygen Concentration - - Weight 116.1 kg (256 lb) 02/18/2024 8:29 AM CDT Height 170.2 cm (5' 7 ) 02/18/2024 8:29 AM CDT Body Mass Index 40.1 02/18/2024 8:29 AM CDT Plan of Treatment Upcoming Encounters Date Type Department Care Team (Late st Contact Info) Description 11/17/2024 8:45 AM CDT Office Visit [facility] THREE [facility] [address] [place], [place] [phone] Stan Wan, SANDIE [facility] [address] [place] [address] Health Maintenance Due Date Last Done Comments Colorectal Cancer Screening Colonoscopy (10 Years) 1965 Annual Physical 1968 Pneumococcal Vaccine: Pediatrics (0 to 5 Years) and At-Risk Patients (6 to 64 Years) (1 of 2 - PCV) 11/11/1971 Hepatitis C 11/11/1983 DTaP, Tdap and Td Vaccines ( 1 - Tdap) 1984 Hepatitis B Vaccines (1 of 3 - 19+ 3-dose series) 1984 Zoster Vaccines (1 of 2) 11/11/2015 COVID-19 Vaccine (3 - 2023-2 5 season) 2023 08/26/2020, 08/04/2020 Influenza Adult (#1) 2024 Meningococcal Vaccine Aged Out No philip linda eligible based on patient's age to complete this topic RSV Immunizations Under 20 Months Aged Out No longer eligible b ased on patient's age to complete this topic Insurance Care Teams Death Claim Examiner Relationship Specialty Start Date End Date John Quinones MD 1 [place] [address] PCP - General INTERNAL MEDICINE 10/21/21 Willy Gomez MD Three [facility] [address] [place] [address] Precious Pairer Odds CARDIOVASCULAR DISEASE 12/11/17
--- OUTSIDE RECORDS SUMMARY | 2024-05-05 00:10 | XMS_ITS | Continuity of Care Document ---
Author Organization [facility] [employer] Address [address] [place] [address] Care Team Providers Care Reinforcing Rod Layer Name Role Phone VI [employer] Assessment Encounter Date Assessment Date Assessment LastModified by Organization Details LastModified Time 02/21/2024 02/21/2024 Recommends healthy nutrition, including a [...] Appointments ESTABLISH ED PATIENT 15 2024 10:00A M John Quinones MD Not available Not available Not available Lab urinalysi s complete, reflex culture 2023 [facility] [employer] [facility], [address] [facility], [place], [address], 02/28/2024 08:13:35 lipid panel, serum 2023 [facility] [employer] [facility], [address] [facility], [place], [address], 02/24/2024 00:36:20 CMP, serum or plasma 2023 024 [facility] [employer] [facility], [address] [facility], [place], [address], 02/24/2024 00:36:19 CBC w/ auto diff 10/2023 [facility], [address], [place], [address], 02/24/2024 00:36:18 PSA, serum or plasma 2023 [facility], [address], [place], [address], 02/28/2024 08:13:35 noninvasi ve colorecta l cancer DNA + occult blood screening , QL, stool 2023 [facility], [address], [place], [address], 02/21/2024 10:09:02 hemoglobi n A1C/hemog lobin total, QN, blood 2023 [facility], [address], [place], [address], 02/21/2024 10:09:04 Referral None recorded. Procedures None recorded. Surgeries None recorded. Imaging XR, lumbar spine 2023 [facility], [address] [place], [address], 03/06/2024 08:11:59 Medication Orders Airsupra 90 mcg-80 mcg/actua tion HFA aerosol inhaler 2023 [facility] [place], [address], 02/21/2024 10:08:13 telmisart an 20 mg tablet 2023 [facility], [address] [place], [address], 02/21/2024 10:08:13 Patient TargetsNo targets recorded. Patient Instructions Encounter Date Encounter Id Patient Instructions Last Modified By Organization Details Last Modified Time 02/21/2024 [id number] advised to lose weight Not available 02/21/2024 10:08:03 Discussed and explained advance directives such as standard forms to the {{patient caregiv er patient and caregiver}}. Face to face discussion lasted for a duration of ___ minutes. [email or web address] Not available 02/21/2024 09:06:54 Reason for Referral None Reported. Problems Name Problem SNOMED Code Status Onset Date Resolution Date Notes Provider Name and Address Organization Details Recorded Time Hyperlipid emia 94635826 Active 2022 Not Available [facility] 3 09:24:57 Obstructiv e sleep apnea of adult 0119380120137 Active 2022 Not Available [facility] 3 09:24:57 Asthma 960320860 Active 2022 Not Available [facility] 3 09:24:57 Pleuritic pain 3699209 Active 2022 John Quinones MD [address], [place], [address] , [facility] 3 09:28:17 Visual disturbanc e 44380770 Active 2022 John Quinones MD [address], [place], [address] , [facility] 3 09:28:18 Bilateral heel pain 1621153125936 9108 Active 2022 John Quinones MD [address], [place], [address] , [facility] 3 09:28:18 Cough 85427752 Active 2022 John Quinones MD [address], [place], [address] , [facility] 3 09:35:04 Supraclavi cular lymphadeno ronnie 029919801 Active 2022 John Quinones MD [address], [place], [address] , [facility] 3 09:43:39 Essential hypertensi on 77586378 Active 2022 John Quinones MD [address], [place], [address] , [facility] 3 15:33:49 Hyperglyce waldo 67746254 Active 2022 John Quinones MD [address], [place], [address] , [facility] 3 23:03:11 Pericardia l cyst 123009769 Active 2022 John Quinones MD [address], [place], [address] , [facility] 3 06:55:02 Problem Notes None recorded. Medical Equipment None Reported. [...] Available No t Available Vitals Date Recorded Heart rate Respiratory rate Body temperature Body weight Body mass index (BMI) Body height Systolic blood pressure Diastolic blood pressure Provider Name and Address Organization Details Last Updated DateTime 4 66 /min 16 /min 97.2 [degF] 031218. 83 g 40.4 kg/m2 170.18 cm 122 mm[Hg] 77 mm[Hg] Chrissie Mendes [facility] 4 09:07:19 Social History Question Answer Notes LastModified by Organizat ion Details LastModified Time Tobacco Smoking Status Never Smoker Mare kim [facility] 12/14/2020 14:10:39 What Is Your Level Of Alcohol Consumption? Heavy 24 Drinks/we ek Information not available 07/17/2022 What Is Your Level Of Caffeine Consumption? Moderate Information not available 12/12/2021 Are You Currently Employed? Yes Information not available 12/14/2020 What Is The Highest Grade Or Level Of School You Have Completed Or The Highest Degree You Have Received? [id number] Information not available 12/14/2020 What Was The Date Of Your Most Recent Tobacco Screening? 04/28/2024 [email or web address] Information not available 04/28/2024 What Is Your [...] mcg/0.3 mL dose 1 completed Not Available [facility] 05/08/2023 08:40:59 COVID-19, mRNA, LNP-S, PF, 30 mcg/0.3 mL dose 1 completed Not Available [facility] 05/08/2023 08:40:59 zoster recombinant 3 completed Romi kmi [facility] 04/28/2024 14:25:16 Tdap 3 completed Romi kim [facility] 04/28/2024 14:25:36 zoster recombinant 3 completed Romi kim [facility] 04/28/2024 14:25:49 Past Encounters Encounter ID Performer Location Encounter Start Date Encounter Closed Date Diagnosis/Indication Diagnosis SNOMED-CT Code Diagnosis ICD10 Code [id number] John Quinones MD [facility], [facility] [address] [place] [address] 02/21/2024 08:55:15 02/21/2024 10:10:19 Adult health examination 518954111 Z00.00 Essential hypertension 59046014 I10 Supraclavi cular lymphadenopathy 780026003 R59.0 Hyperlipidemia 24630293 E78.5 Obstructiv e sleep apnea of adult 4003325098 103 G47.33 Asthma 628589072 J45.90 9 Bilateral heel pain 1563 777390 6461908 M79.671 M79.672 Diabetes m ellitus screening 771391827 Z13.1 Hepatitis C screening 41 1483765 Z11.59 HIV screening 232229428 Z11.4 Active or passive immunization 017943547 Z23 Screening for malignant neoplasm of colon 687403985 Z12.11 Screening for malignant neoplasm of prostate 472684285 Z12.5 Body mass index 40+ - severely obese 950615626 Z68.41 Left flank pain 01972719 9 R10.9 Lumbar radiculopathy 128 544769 M54.16 Health Concerns Section Related Observation LastModified by Organization Detai ls LastModified Time None Recorded Concern Status LastModified by Organization Details LastModified Time None Recorded Payers Encounter Date Sequence Insurance Name Policy Number Policy Snider Covered Member ID Snider Member ID Guarantor Name 02/21/2024 1 [facility] [id number] Asad Novak [id number] Asad Novak Notes Date Note Type Note Provider Name and Address Organization Details Recorded Time 02/21/2024 text/html Pt comes in for left [...] sx, n/v, any angina equivalent symptoms, etc. John Quinones MD [address] [place] [address] [address], [place], [address], [facility] 02/21/2024 10:22:17
--- OUTSIDE RECORDS SUMMARY | 2024-05-05 00:10 | XMS_ITS | Encounter Summary ---
Author Organization [facility] Address [address] [place] [address]. [place] [address] [place] [address] Care Team Providers Care Nurse Outreach Case Manager Name Role Phone Willy Gomez MD Unavailable [phone] John Quinones MD Primary Care Provider [phone] Reason for Visit * Reason Comments PFT (SCAN) Encounter Details Date Type Department Care Team (Latest Contact Info) Description 04/16/2023 Scan HEALTH INFO SRVCS Scanned, Doc Med Group PFT (SCAN) Social History Tobacco Use Types Packs/Day Years [...] 11/17/2024 8:45 AM CDT Office Visit [facility] THREE [facility], [facility] [address] [place], [place] [phone] Stan Wan, SANDIE [facility] [address] [place], [place] [phone] documented as of this encounter Procedures Procedure Name Priority Date/Time Associated Diagnosis Comments PFT GENERIC (SCAN ORDER) 04/16/2023 documented in this encounter Results * PFT GENERIC (04/16/2023) 04/16/2023 us Doc Med Group Scanned SCANNING Final Resu lt documented in this encounter Visit Diagnoses Not on filedocumented in this encounter Care Teams Nurse Outreach Case Manager Relationship Specialty Start Date End Date John Quinones MD [address] [place] [address] PCP - General INTERNAL MEDICINE 10/21/21 Willy Gomez MD Three [facility]. [address] [place] [address] [place] [employer] Retail Manager CARDIOVASCULAR DISEASE 12/11/17 documented as of this encounter
--- OUTSIDE RECORDS SUMMARY | 2024-05-05 00:10 | XMS_ITS | Encounter Summary ---
Author Organization [facility] Address [facility] [place] [address] [place] [address] Care Team Providers Care Unit Aide Tech Name Role Phone Willy Gomez MD Unavailable [phone] John Quinones MD Primary Care Provider [phone] Reason for Referral * Procedure (Routine) - Closed Specialty Diagnoses / Procedures Referred By Contac t Referred To Contact Diagnoses Chronic cough Procedures Complete PFT (pre/post [place], Lung Vol, Diff Capacity) (24425, 08955, 74884, 87375) Fred Lanza MD [address] [address] Phone: tel: fax: Referral ID Status Reason Start Date Expiration Date Visits Re quested Visits Authorized [id number] Closed 12/14/2022 12/15/2023 1 1 S SERVICE ASSISTANT Reason for Visit * Procedure (Routine) - Closed Specialty Diagnoses / Procedures Referred By Contac t Referred To Contact Diagnoses Chronic cough Procedures Complete PFT (pre/post [place], Lung Vol, Diff Capacity) (82784, 31247, 20290, 88436) Fred Lanza MD [address] [address] Phone: tel: fax: Referral ID Status Reason Start Date Expiration Date Visits Re quested Visits Authorized [id number] Closed 12/14/2022 12/15/2023 1 1 Encounter Details Date Type Department Care Team (Latest Contact Info) Description 04/16/2023 8:44 AM SALES SERVICE ASSISTANT - 04/16/2023 11:59 PM SALES SERVICE ASSISTANT Hospital Encounter [facility] [place] [address] Fred Lanza MD 3 [facility] [address] [place] [address] Discharge Disposition: Home or Self Care (Routine Discharge) Social History Tobacco Use Types Packs/Day Years [...] on file documented as of this encounter Medications at Time of Discharge telmisartan (MICARDIS) 20 MG Tab Take 1 tablet (20 mg total) by mouth daily. 06/19/2022 albuterol sulfate HFA 108 (90 Base) MCG/ACT inhaler albuterol sulfate HFA 90 mcg/actuation aerosol inhaler 2 puffs up to 4 times a days as needed only; Must go to the Emergency Room if no relief after the 4th treatment. 4 documented as of this encounter Progress Notes * Fred Lanza MD - 04/16/2023 9:00 AM CST Mr. Novak, Your lung function testing did show some nonspecific changes in airflow that could be consistent with asthma, this can be an explanation for cough. It looks like you are scheduled to follow-up with me soon on 05/07/2022, we will go over the results in more detail at that time. Fred Lanza MD S SERVICE ASSISTANT documented in this encounter Procedure Notes * Fred Lanza MD - 04/16/2023 9:00 AM CSTAssociated Order(s): PULMONARY FUNCTION TEST [facility] PULMONARY FUNCTION TESTS Asad Novak 57-year-old Height 68 inches Weight 240 Lbs 04/26/2023 INTERPRETATION Please see technologist's comments. SPIROMETRY: Prebronchodilator FEV1 2.67 L, 77% predicted. FVC 3.31 L, 75% predicted. FEV1/FVC ratio 81% Postbronchodilator FEV1 2.89 L, 84% predicted. FVC 3.38 L, 77% predicted. FEV1/FVC ratio 85% There is No significant response to bronchodilator administration. Inspection of the patient's flow-volume loops shows normal configuration of the inspiratory and expiratory limbs LUNG VOLUMES: TLC 5.42 L, 80% predicted. RV 1.83 L, 92% predicted. DLCO: Diffusing capacity unadjusted for Hb and COHb is 82% IMPRESSION: Nonspecific ventilatory limitation There is no significant response to bronchodilator. This does not preclude the use of inhaled bronchodilators clinically indicated Fred Lanza MD S SERVICE ASSISTANT documented in this encounter Plan of Treatment Upcoming Encounters Date Type Department Care Team (Late st Contact Info) Description 11/17/2024 8:45 AM CDT Office Visit [facility] THREE [facility], [facility] [address] [place] [address] Stan Wan, SANDIE [facility] [address] [place] [address] documented as of this encounter Procedures Procedure Name Priority Date/Time Associated Diagnosis Comments PULMONARY FUNCTION TEST Routine 04/16/2023 9:00 AM SALES SERVICE ASSISTANT Chronic cough documented in this encounter Results * Complete PFT (pre/post [place], Lung Vol, Diff Capacity) (17196, 99284, 96452, 30635) (04/16/2023 9:00 AM SALES SERVICE ASSISTANT) Narrative [facility] - 04/16/2023 9:00 AM SALES SERVICE ASSISTANT Fred Lanza MD ? 04/26/2023 ??1:17 PM ?? [facility] PULMONARY FUNCTION TESTS Asad Novak 57-year-old Height 68 inches Weight 240 Lbs 04/26/2023 INTERPRETATION Please see technologist's comments. SPIROMETRY: ?? Prebronchodilator FEV1 2.67 L, 77% predicted. ??FVC 3.31 L, 75% predicted. ??FEV1/FVC ratio 81% Postbronchodilator FEV1 2.89 L, 84% predicted. ??FVC 3.38 L, 77% predicted. ??FEV1/FVC ratio 85% There is No significant response to bronchodilator administration. Inspection of the patient's flow-volume loops shows normal configuration of the inspiratory and expiratory limbs LUNG VOLUMES: TLC 5.42 L, 80% predicted. ??RV 1.83 L, 92% predicted. DLCO: Diffusing capacity unadjusted for Hb and COHb is 82% IMPRESSION: Nonspecific ventilatory limitation There is no significant response to bronchodilator. ??This does not preclude the use of inhaled bronchodilators clinically indicated Fred Lanza MD Fred Lanza MD PFT ORDERABLES Final Result [facility] [address] [place] [address], documented in this encounter Visit Diagnoses Diagnosis Chronic cough Cough documented in this encounter Administered Medications Inactive Administered Medications - up to 3 most recent administrations Medication Order MAR Action Action Date Dose Rate Site albuterol sulfate HFA 108 (90 Base) MCG/ACT inhaler 2 puff 2 puff, Inhalation, Once, 1 dose, On 04/16/23 at 0915 Given 04/16/2023 9:05 AM SALES SERVICE ASSISTANT 2 puffs documented in this encounter Care Teams Unit Aide Tech Relationship Specialty Start Date End Date John Quinones MD [address] [place] [address] PCP - General INTERNAL MEDICINE 10/21/21 Willy Gomez MD Three [facility]. [address] [place] [address] [place] Head Machinist CARDIOVASCULAR DISEASE 12/11/17 documented as of this encounter
--- OUTSIDE RECORDS SUMMARY | 2024-05-05 00:10 | XMS_ITS | Encounter Summary ---
Author Organization [facility] Address [address] [place] [address]. [place] [address] [place] [address] Care Team Providers Care Production Potter Name Role Phone Willy Gomez MD Unavailable [phone] John Escobar MD Primary Care Provider [phone] Reason for Visit * Reason Comments Follow Up Encounter Details Date Type Department Care Team ([facility] [facility] st Contact Info) Description 02/18/2024 8:30 AM CDT [facility] [address], [place] [id number] Stan Wan NP [facility] [address], [place] [id number] Follow Up Social History Tobacco Use Types [...] Pulse 94 02/18/2024 8:29 AM CDT Temperature - - Respiratory Rate - - Oxygen Saturation 97% 02/18/2024 8:29 AM CDT Inhaled Oxygen Concentration - - Weight 116.1 kg (256 lb) 02/18/2024 8:29 AM CDT Height 170.2 cm (5' 7 ) 02/18/2024 8:29 AM CDT Body Mass Index 40.1 02/18/2024 8:29 AM CDT documented in this encounter Progress Notes * Stan Wan NP - 02/18/2024 8:30 AM CDT Images from the original note were not included. [place], [place] [address] Cardiology Clinic Note CC: Follow Up Date: 02/18/2024 PCP: JOHN ESCOBAR MD HPI Asad Novak is a 58-year-old male being seen today for Follow Up. He is doing very well overall without any chest pain or shortness of breath. Also denies dizziness, palpitations, lower extremity swelling. He is planning a trip to [place] [employer] for 2 weeks. He has sleep apnea and is compliant with CPAP. He continues to work at the [employer] 4 days a week. Problem list: Pericardial cyst Hypertension Hyperlipidemia Obstructive sleep apnea, on CPAP Asthma Assessment and Plan: Pericardial cyst Discussed that these are typically benign in nature Was not seen on echo, but was noted on CT and cardiac MRI We will plan for repeat cardiac MRI following his next visit Hypertension Currently on telmisartan 20 mg daily He does not check his blood pressure at home Blood pressure elevated in the office today, but he has not had any recent meds. I asked him to start checking his blood pressure at home with goal blood pressure 1 20-1 30 systolic Hyperlipidemia He is scheduled for repeat lipids with his PCP in April It is my pleasure to participate in the care of Asad Novak. He will return for follow up in9 months, earlier if needed. Diagnostic studies Echocardiogram done 09/2022: The left ventricular size is normal. The left ventricular systolic function is normal. Estimated left ventricular ejection fraction is 60-65%. Left ventricular diastolic function is normal. Wall motion appears normal in all segments. The right ventricle size is normal. The right ventricular function is normal. No significant valvular abnormalities. Pericardial cyst not visualized. Cardiac MRI done 10/2022 Labs: Lab Results Component Value Date CHOL 180 06/27/2022 TRI 234 (A) 06/27/2022 HDL 38 06/27/2022 LDL 95 06/27/2022 Physical examination: Filed Vitals: 02/18/24 0829 BP: (!) 142/92 Pulse: 94 SpO2: 97% Weight: 116.1 kg (256 lb) Height: 1.702 m (5' 7 ) Cardiac Exam Rate/Rhythm: Normal rate and regular rhythm. PMI: Pulses: Heart Sounds: Normal heart sounds. Murmurs: Edema left: 0. Edema Right: 0. Physical Exam Constitutional: No distress. Healthy Appearance. HENT: Eyes: Neck: No JVD. Abdomen: No distension. Pulmonary: Effort normal. Breath sounds normal. Skin: Dry. Warm. No jaundice. Musculoskeletal: Normal ROM. Neurological: Alert. Oriented x 3. Appropriate mood and affect. Comments: Allergies: Review of patient's allergies indicates: No Known Allergies Medications: Medications Discontinued During This Encounter Medication Reason albuterol sulfate HFA 108 (90 Base) MCG/ACT inhaler Discontinued by another clinician No orders of the defined types were placed in this encounter. Current Outpatient Medications Medication Sig Fluticasone Furoate (ARNUITY ELLIPTA) 50 MCG/ACT AEROSOL POWDER, BREATH ACTIVATED Inhale 1 puff into the lungs daily. Rinse and spit after use telmisartan (MICARDIS) 20 MG Tab Take 1 tablet (20 mg total) by mouth daily. ROS: Review of Systems Constitutional: Negative for recent unintentional weight gain, recent unintentional weight loss andnew or significant fatigue. HENT: Negative for new or significant hearing loss. Eyes: Negative for blurred vision and double vision. Respiratory: Negative for cough, new or significant shortness of breath and snoring. Cardiovascular: See HPI. Gastrointestinal: Negative for blood in stool and melena. Genitourinary: Negative for dysuria. Musculoskeletal: Negative for myalgias and new or worsening joint stiffness/pain. Skin: Negative for rash. Neurological: Negative for tingling/numbness and focal weakness. Endo/Heme/Allergies: Negative for new or significant bruising/bleeding and polydipsia. Psychiatric/Behavioral: Negative for depression and new or significant memory loss. Past Medical History: Diagnosis Date Asthma (HHS/HCC) Chest tightness Essential (primary) hypertension Sleep apnea Past Surgical History: Procedure Laterality Date NONE Social History Tobacco Use Smoking status: Never Smokeless tobacco: Never Vaping Use Vaping status: Never Used Substance Use Topics Alcohol use: Yes Alcohol/week: 33.3 standard drinks of alcohol Types: 20 Cans of beer per week Comment: beer Drug use: No Family History Problem Relation Name Age of Onset Stroke Mother Mago Mcdermott Diabetes Mother Mago Mcdermott Dementia Mother Mago Mcdermott Heart Attack Father Drug Abuse Brother Willy Novak Heart Attack Paternal Grandmother Social Drivers of Health Alcohol Use: Not on file Depression: Not at risk (12/14/2022) PHQ-2 PHQ-2 Score: 0 Financial Resource Strain: Not on file Food Insecurity: Not on file Health Literacy: Not on file Housing Stability: Not on file Intimate Partner Violence: Not on file Physical Activity: Not on file Social Connections: Not on file Stress: Not on file Tobacco Use: Low Risk (02/18/2024) Patient History Smoking Tobacco Use: Never Smokeless Tobacco Use: Never Passive Exposure: Not on file Transportation Needs: Not on file Utilities: Not on file Diagnoses 1. Pericardial cyst (HHS/HCC) 2. Essential hypertension 3. Pure hypercholesterolemia documented in this encounter Plan of Treatment Upcoming Encounters Date Type Department Care Team (Late st Contact Info) Description 11/17/2024 8:45 AM CDT Office Visit [place] [facility] [address] [place] [address] Stan Wan NP [facility] [address], [place] [id number] documented as of this encounter Visit Diagnoses Diagnosis Pericardial cyst (HHS/HCC)- Primary Other specified congenital anomaly of heart Essential hypertension Unspecified essential hypertension Pure hypercholesterolemia documented in this encounter Care Teams Production Potter Relationship Specialty Start Date End Date John Escobar MD [address] [place] [address] PCP - General INTERNAL MEDICINE 10/21/21 Willy Gomez MD [facility] [address] [place] [address] [place] Customer Support Assistant CARDIOVASCULAR DISEASE 12/11/17 documented as of this encounter
--- OUTSIDE RECORDS SUMMARY | 2024-05-05 00:10 | XMS_ITS | Encounter Summary ---
Author Organization [facility] Address [address] [place] [address]. [place] [address] [place] [address] Care Team Providers Care Reproduction Artist Name Role Phone Willy Gomez MD Unavailable [phone] John Escobar MD Primary Care Provider [phone] Reason for Visit * Reason Comments Hypertension 6 mo follow up Encounter Details Date Type Department Care Team (Late st Contact Info) Description 02/12/2023 8:30 AM CDT Office Visit [facility] [address] [place], [place] [id number] Stan aWn, SANDIE [facility] [address] [place], [place] [phone] Hypertension (6 mo follow up) Social History Tobacco Use Types Packs/Day Years [...] Sign Reading Time Taken Comments Blood Pressure 140/90 02/12/2023 8:19 AM CDT Pulse 105 02/12/2023 8:19 AM CDT Temperature - - Respiratory Rate - - Oxygen Saturation 98% 02/12/2023 8:19 AM CDT Inhaled Oxygen Concentration - - Weight 109.8 kg (242 lb) 02/12/2023 8:19 AM CDT Height 170.2 cm (5' 7 ) 02/12/2023 8:19 AM CDT Body Mass Index 37.9 02/12/2023 8:19 AM CDT documented in this encounter Progress Notes * Stan Wan, SANDIE - 02/12/2023 8:30 AM CDT Reason for Visit: Hypertension (6 mo follow up) History of Present Illness: Asad Novak is a 57-year-old male with HTN and pericardial cyst. He is here today for scheduled follow-up visit. He is doing well overall from a cardiac standpoint. Denies any exertional chest pain, shortness of breath. He remains active by walking his dog for approximately 30 minutes at a time. Hedoes admit to some left shoulder tension/pain when he thinks about going into work. He tells me hisjob is stressful and this can occasionally cause him some symptoms. Just talking about it in the office today was able to bring on his tension-like pain. He is confident that his symptoms are not exertional. He also has stairs inside his home that he takes frequently without any exertional symptoms. 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 He has no history of tobacco or illicit substance use. Consumes about 15 beers per week, largely on the weekends. He has no family history of premature coronary artery disease. Recommendations and Plan: Problem list: HTN Pericardial cyst COLTEN on CPAP Dyslipidemia Asthma PLAN Pericardial cyst: Not seen on echocardiogram, however it was visualized on cardiac MRI measuring 2.2 cm. No concerning symptoms. We will monitor for clinical symptoms at this time. I did discuss repeating imaging at the 1-2-year sharita. Dyslipidemia: 06/2022 labs included LDL 104. His 10-year cardiovascular risk is estimated at 5.8%. Irecommend he continue to focus on lifestyle changes and indeed he has already lost 20 pounds and isworking on exercising more and improving his diet. His blood pressure is mildly elevated in the office today. I asked him to check this at home for goal blood pressure 1 20-1 30 systolic, diastolic 70-80. It is my pleasure to participate in the care of Asad Novak. He will return for follow up in12 months, earlier if needed. DATA REVIEWED Echocardiogram done 09/2022: The left ventricular size is normal. The left ventricular systolic function is normal. Estimated left ventricular ejection fraction is 60-65%. Left ventricular diastolic function is normal. Wall motion appears normal in all segments. The right ventricle size is normal. The right ventricular function is normal. No significant valvular abnormalities. Pericardial cyst not visualized. Cardiac MRI done 10/2022 Medications: Current Outpatient Medications: albuterol sulfate HFA 108 (90 Base) MCG/ACT inhaler, albuterol sulfate HFA 90 mcg/actuation aerosolinhaler 2 puffs up to 4 times a days as needed only; Must go to the Emergency Room if no relief after the 4th treatment., Disp: , Rfl: telmisartan (MICARDIS) 20 MG Tab, telmisartan 20 mg tablet TAKE 1 TABLET BY MOUTH ONCE DAILY, Disp:, Rfl: Review of patient's allergies indicates: No Known Allergies Past Medical History: Diagnosis Date Asthma Chest [...] Paternal Grandmother Drug Abuse Brother Willy Novak Family Status Relation Name Status Mother Mago Mcdermott Alive, age 79y Father at age 63 Sister Alive, age 58y Brother at age 53 Brother Alive, age 49y MGM at age 77 PGM at age 84 PGF at age 72 Brother Willy Novak (Not Specified) Review of Systems Constitutional: Negative for recent [...] depression and new or significant memory loss. Vitals: 02/12/23 0819 BP: (!) 140/90 Patient Position: Sitting BP Location: Left arm Pulse: (!) 105 Weight: 109.8 kg (242 lb) Height: 1.702 m (5' 7 ) Body mass index is 37.9 kg/m??. Cardiac Exam Rate/Rhythm: Normal rate and regular rhythm. PMI: PMI is not displaced. Pulses: Normal pulses. Femoral pulses are 2+ on the right side and 2+ on the left side. Heart Sounds: Normal heart sounds. Normal S1 sounds. Normal S2 sounds. No gallop present. No S3. NoS4. Murmurs: Physical Exam Constitutional: No distress. Healthy Appearance. HENT: Oropharynx clear. Eyes: Pupils equal, round, and reactive to light. Conjunctivae normal. Neck: Neck supple. No JVD. Abdomen: Abdomen soft. Bowel sounds normal. No tenderness. No mass. No hepatomegaly. No splenomegaly. Abdominal aorta not palpably enlarged. No abdominal bruit present. Pulmonary: Effort normal. Breath sounds normal. Skin: No rash. No cyanosis. No clubbing. No xanthoma. Musculoskeletal: No kyphosis. Normal ROM. Neurological: Alert. Oriented x 3. Appropriate mood and affect. Normal motor skills. Normal gait. Comments: Diagnoses/Impression: 1. Pericardial cyst (HHS/HCC) 2. Essential hypertension 3. Pure hypercholesterolemia Referring Provider: No ref. provider found PCP: JOHN ESCOBAR MD [employer]ER [employer] documented in this encounter Plan of Treatment Upcoming Encounters Date Type Department Care Team (Late st Contact Info) Description 11/17/2024 8:45 AM CDT Office Visit [facility] [address] Stan Wan, SANDIE [facility] [address] [place] [phone] documented as of this encounter Visit Diagnoses Diagnosis Pericardial cyst (HHS/HCC)- Primary Other specified congenital anomaly of heart Essential hypertension Unspecified essential hypertension Pure hypercholesterolemia documented in this encounter Care Teams Reproduction Artist Relationship Specialty Start Date End Date John Escobar MD [address] [place] [address] PCP - General INTERNAL MEDICINE 10/21/21 Willy Gomez MD Three [facility]. [address] [address] [place] [employer] CARDIOVASCULAR DISEASE 12/11/17 documented as of this encounter
--- OUTSIDE RECORDS SUMMARY | 2024-05-05 00:10 | XMS_ITS | Encounter Summary ---
Author Organization [facility] Address [facility] [address] [place] [address] Care Team Providers Care Newspaper Writer Name Role Phone Willy Gomez MD Unavailable [phone] John Quinones MD Primary Care Provider [phone] Reason for Referral * Imaging (Routine) - Closed Specialty Diagnoses / Procedures Referred By Magy lutz Referred To Contact RADIOLOGY Diagnoses Supraclavicular adenopathy Procedures CT SOFT TISSUE NECK W Jessee Reyna MD [address] [address] Phone: tel: fax: Referral ID Status Reason Start Date Expiration Date Visits Re quested Visits Authorized [id number] Closed 01/16/2023 02/14/2023 1 1 Reason for Visit * Imaging (Routine) - Closed Specialty Diagnoses / Procedures Referred By Magy lutz Referred To Contact RADIOLOGY Diagnoses Supraclavicular adenopathy Procedures CT SOFT TISSUE NECK W Jessee Reyna MD 3 [facility] [address] [place] [address] Phone: tel: fax: Referral ID Status Reason Start Date Expiration Date Visits Re quested Visits Authorized [id number] Closed 01/16/2023 02/14/2023 1 1 Encounter Details Date Type Department Care Team (Latest Contact Info) Description 01/22/2023 6:43 AM CDT - 01/22/2023 11:59 PM CDT Hospital Encounter [facility] [address] Jessee Hoover MD [address] [facility] [address] [place] [address] Discharge Disposition: Home or Self Care (Routine [...] treatment. 4 documented as of this encounter Plan of Treatment Upcoming Encounters Date Type Department Care Team (Late st Contact Info) Description 11/17/2024 8:45 AM CDT Office Visit [facility] [facility] [place] [address] [place] [address] Stan Wan, SANDIE Three [facility] [address] [place] [address] documented as of this encounter Procedures Procedure Name Priority Date/Time Associated Diagnosis Comments CT SOFT TISSUE NECK W CON Routine 01/22/2023 7:08 AM CDT Supraclavicular adenopathy documented in this encounter Results * CT SOFT TISSUE NECK W CON (01/22/2023 7:08 AM CDT) Anatomical Region Laterality Modality Neck Computed Tomogra phy 01/22/2023 9:30 AM CDT Impressions 01/22/2023 9:33 AM CDT =====IMPRESSION:===== 1. No significant abnormalities demonstrated. There is been complete interval resolution of previously noted abnormal enlarged right supraclavicular lymph node. Ordered By: JESSEE HOOVER Interpreted By: Harley Borja MD, 01/22/2023 9:30 AM Narrative 01/22/2023 9:33 AM CDT EXAMINATION: CT soft tissue neck with contrast EXAM DATE/TIME: 01/22/2023 6:55 AM REASON FOR EXAM: ??Follow up supraclavicular adenopathy, compare to CT chest to see if it has decrased in size, no longer palpable on exam Swelling, concern for abscess/infection ? COMPARISON: CT chest 07/18/2022 TECHNIQUE: CT examination of the neck was performed after administration of intravenous contrast, 100mL IOPAMIDOL 76 % IV SOLN. Axial and multiplanar reformatted images were obtained. A dose lowering technique was used for this procedure, which may include, but is not limited to, dose reduction technique, automated exposure control, iterative reconstruction, ALARA (As Low As Reasonably Achievable), or Image Gently techniques. FINDINGS: Visualized portions of the skull base demonstrate no acute abnormality. Mastoid air cells are clear. Visualized paranasal sinuses are clear. The nasopharynx and the oropharynx are unremarkable. No abnormal displacement of parapharyngeal fat pads. The epiglottis/supraglottic pharynx, hypopharynx and the larynx are grossly unremarkable. No thyroid lesions are demonstrated. Submandibular and parotid glands are unremarkable. There is no evidence of focal inflammatory change nor abscess. Small nonspecific cervical lymph nodes are present bilaterally. No significant abnormal enlarged cervical lymph nodes. The abnormal enlarged right supraclavicular lymph node noted on the previous study has resolved in the interim. No significant abnormal enlarged supraclavicular lymph nodes are demonstrated on the current study. Visualized portions of the upper lungs demonstrate no acute abnormality. 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 Procedure Note Harley Borja MD - 01/22/2023 EXAMINATION: CT soft tissue neck with contrast EXAM DATE/TIME: 01/22/2023 6:55 AM REASON FOR EXAM: Follow up supraclavicular adenopathy, compare to CTchest to see if it has decrased in size, no longer palpable on exam Swelling, concern for abscess/infection COMPARISON: CT chest 07/18/2022 TECHNIQUE: CT examination of the neck was performed after administrationof intravenous contrast, 100mL IOPAMIDOL 76 % IV SOLN. Axial andmultiplanar reformatted images were obtained. A dose lowering techniquewas used for this procedure, which may include, but is not limited to,dose reduction technique, automated exposure control, iterativereconstruction, ALARA (As Low As Reasonably Achievable), or Image Gentlytechniques. FINDINGS: Visualized portions of the skull base demonstrate no acuteabnormality. Mastoid air cells are clear. Visualized paranasal sinuses areclear. The nasopharynx and the oropharynx are unremarkable. No abnormaldisplacement of parapharyngeal fat pads. The epiglottis/supraglotticpharynx, hypopharynx and the larynx are grossly unremarkable. No thyroid lesions are demonstrated. Submandibular and parotid glands areunremarkable. There is no evidence of focal inflammatory change nor abscess. Smallnonspecific cervical lymph nodes are present bilaterally. No significantabnormal enlarged cervical lymph nodes. The abnormal enlarged right supraclavicular lymph node noted on theprevious study has resolved in the interim. No significant abnormalenlarged supraclavicular lymph nodes are demonstrated on the currentstudy. 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 =====IMPRESSION:===== 1. No significant abnormalities demonstrated. There is been completeinterval resolution of previously noted abnormal enlarged rightsupraclavicular lymph node. Ordered By: JESSEE HOOVER Interpreted By: Harley Borja MD, 01/22/2023 9:30 AM us Jessee Hoover MD CT Final Result documented in this encounter Visit Diagnoses Diagnosis Supraclavicular adenopathy Enlargement of lymph nodes documented in this encounter Administered Medications Inactive Administered Medications - up to 3 most recent administrations Medication Order MAR Action Action Date Dose Rate Site iopamidol (ISOVUE-370) 76 % injection 100 mL 100 mL, Intravenous, IMG once as needed, Contrast, 1 dose, Starting on Sun01/22/23 at 0708, Until Sun01/22/23 at 0708 Given 01/22/2023 7:08 AM CDT 100 mLs Left Arm documented in this encounter Care Teams Newspaper Writer Relationship Specialty Start Date End Date John Quinones MD [address] [place] [address] PCP - General INTERNAL MEDICINE 10/21/21 Willy Gomez MD Three [facility]. [facility] [address] [place] [address] [place] Activities Director Scouting CARDIOVASCULAR DISEASE 12/11/17 documented as of this encounter
--- OUTSIDE RECORDS SUMMARY | 2024-05-05 00:11 | XMS_ITS | Encounter Summary ---
Author Organization [facility] Address [facility] [place] [address] [place] [address] Care Team Providers Care Railroad Mechanic Name Role Phone Willy Gomez MD Unavailable [phone] John Quinones MD Primary Care Provider [phone] Reason for Visit * Reason Comments Chest Pain CP starting around 1 500 while walking around house. Pt also notes SOB, nausea, diaphoresis. States pain is left sided and radiates to neck/jaw and down left arm. Denies cardiac history. Encounter Details Date Type Department Care Team (Late st Contact Info) Description 10/21/2021 4:28 PM CDT - 10/21/2021 8:21 PM CDT Emergency [facility] Emergency Room [place], [place] [id number] Paolo Kidd, PSYCHIATRIC SOCIAL WORKER SUPERVISOR [address], [place] [address] Chest Pain (CP starting around 1500 while walking around house. Pt also notes SOB, nausea, diaphoresis. States pain is left sided and radiates to neck/jaw and down left arm. Denies cardiac history. ) Discharge Disposition: Home or Self Care (Routine Discharge) Social History Tobacco Use Types Packs/Day Years Used Date Smoking Tobacco: Never Smokeless Tobacco: Never Alcohol Use Standard Drinks/Week Comments Yes 33.3 (1 standard drink = 0.6 oz pure alcohol) Sex and Gender Information Value Date Recorded Sex Assigned at Not on file Legal Sex Male 7:48 AM CDT Gender Identity Not on file Sexual Orientation Not on file Occupation Industry Job Start Date Job End Date [employer] Not on file Not on file Not on file COVID-19 Exposure Response Date Recorded In the last 10 days, have campbell u been in contact with someone who was confirmed or suspected to have Coronavirus/COVID-19? No / Unsure 10/21/2021 4:19 PM CDT documented as of this encounter Last Filed Vital Signs Vital Sign Reading Time Taken Comments Blood Pressure 148/104 10/21/2021 7:55 PM CDT Pulse 98 10/21/2021 7:55 PM CDT Temperature 36.9 ??C (98.4 ??F) 10/21/2021 4:23 PM CD T Respiratory Rate 14 10/21/2021 7:55 PM CDT Oxygen Saturation 97% 10/21/2021 7:55 PM CDT Inhaled Oxygen Concentration - - Weight 115.7 kg (255 lb) 10/21/2021 4:23 PM CDT Height 170.2 cm (5' 7 ) 10/21/2021 4:23 PM CDT Body Mass Index 39.94 10/21/2021 4:23 PM CDT documented in this encounter Discharge Instructions * Discharge Instructions* Paolo Kidd APRN - 10/21/2021 8:12 PM CDT Your findings today indicated that your chest pain was not caused by the heart. You need to follow-up with your primary care provider in the next 2 days. Return to the ER if you have increasing chestpain, shortness of breath, fever, or other concerns. The ER is not meant to provide complete care so is important for you to follow-up with your doctor. You should contact your primary doctor to follow up on your blood pressure, uncontrolled blood pressure can be dangerous even deadly. Follow up in 2-3 days with your primary care provider, or if symptoms worsen go to [facility] or the ER. Our practice is committed to providing you the very best in healthcare. We want to hear from you! You will get a satisfaction survey and I sincerely hope that we met or exceeded your expectations.Your feedback is anonymous & helps us improve the patient experience for you and others in the community we serve. It is our pleasure to have the opportunity to take care of you. * Attachments The following attachments cannot be sent through Care Everywhere. * Chest Pain That Is Not Caused by the Heart Discharge Instructions (Martiniquais) * High Blood Pressure in Adults (Martiniquais) documented in this encounter ED Notes * John Baron RN - 10/21/2021 8:21 PM CDT Provider discussed today's findings with the patient/family. The patient has been given informationregarding their treatment, follow up and concerning symptoms for which they should seek urgent or emergent attention. I have expressed the the importance of seeking attention should there be any new,or worsening symptoms or persistence of their condition. Patient verbalized understanding of the discharge instructions. * John Baron RN - 10/21/2021 8:11 PM CDT midsternal chest pain worse with bending over and with activity (going down stairs) rates 1/10 after meds. SOB but unclear if it was because of pain with breathing or SOB for other reasons * Juan Pastor RN - 10/21/2021 4:27 PM CDTSummary: Triage Pt ambulatory to ED with CP starting around 1500 while walking around house. Pt also notes SOB, nausea, diaphoresis. States pain is left sided and radiates to neck/jaw and down left arm. Denies cardiac history. Respirations are even/non-labored. Pt speaking in full/complete sentences. Pt A&Ox4. Skin PWD. Pt in no acute distress in triage. * Paolo Kidd, PSYCHIATRIC SOCIAL WORKER SUPERVISOR - 10/21/2021 4:24 PM CDT [facility] EMERGENCY DEPARTMENT NOTE Chief Complaint Chief Complaint Patient presents with ??? Chest Pain CP starting around 1500 while walking around house. Pt also notes SOB, nausea, diaphoresis. States pain is left sided and radiates to neck/jaw and down left arm. Denies cardiac history. History of Present Illness Patient is a pleasant 55-year-old male with past medical history of sleep apnea, chest tightness, asthma who presents emergency department today ambulatory brought in by family member for evaluation of chest pain that started around 3 PM this afternoon while walking around his house. Patient statesthat he had shortness of breath, nausea, diaphoresis and pain that was radiating to the left neck/jaw and down left arm. Patient states that a month ago he had a cold otherwise he has not had any illness. Patient states that the pain was about a 6/10 and now is a little bit worse. He states the pain is constant. Patient denies any cardiac history himself. Patient states that he does have first-degree family relative of a heart attack. Denies tobacco use, drug use. Does use alcohol socially. Denies any fever, chills, cough, headache, dizziness, vomiting, abdominal pain, or any other current symptoms. Medical History ALLERGIES: No Known Allergies MEDICATIONS: Prior to Admission medications Not on File PAST MEDICAL HISTORY: Past Medical History: Diagnosis Date ??? Asthma ??? Chest tightness ??? Sleep apnea PAST SURGICAL HISTORY: History reviewed. No pertinent surgical history. FAMILY HISTORY: Family History Problem Relation Name Age of Onset ??? Heart Attack Father ??? Heart Attack Paternal Grandmother SOCIAL HISTORY: Social History Tobacco Use ??? Smoking status: Never Smoker ??? Smokeless tobacco: Never Used Substance Use Topics ??? Alcohol use: Yes Alcohol/week: 33.3 standard drinks Types: 20 Cans of beer per week ??? Drug use: No Review of Systems Review of Systems Constitutional: Positive for diaphoresis. Negative for chills, fatigue and fever. HENT: Negative for congestion, rhinorrhea, sore throat and trouble swallowing. Eyes: Negative for pain, discharge and visual disturbance. Respiratory: Positive for shortness of breath. Negative for cough, wheezing and stridor. Cardiovascular: Positive for chest pain (radiating up into left neck and down left arm). Negative for palpitations. Gastrointestinal: Negative for abdominal pain, diarrhea, nausea and vomiting. Endocrine: Negative. Genitourinary: Negative. Negative for dysuria, flank pain and hematuria. Musculoskeletal: Negative for arthralgias and back pain. Skin: Negative for rash and wound. Neurological: Negative for dizziness, seizures, light-headedness, numbness and headaches. Hematological: Negative. Psychiatric/Behavioral: Negative. Physical Exam Filed Vitals: 10/21/21 1623 10/21/21 1934 10/21/21 195 BP: (!) 150/106 (!) 140/96 (!) 148/104 Pulse: 95 92 98 Resp: 18 20 14 Temp: 98.4 ??F (36.9 ??C) TempSrc: Temporal SpO2: 99% 99% 97% Weight: 115.7 kg (255 lb) Height: 5' 7 (1.702 m) Physical Exam Vitals and nursing note reviewed. Constitutional: General: He is not in acute distress. Appearance: Normal appearance. He is obese. He is not toxic-appearing. Comments: Sitting up in exam chair. Respirations are regular, even, nonlabored. No acute distress noted. HENT: Head: Normocephalic. Mouth/Throat: Mouth: Mucous membranes are moist. Eyes: Conjunctiva/sclera: Conjunctivae normal. Cardiovascular: Rate and Rhythm: Normal rate and regular rhythm. Pulses: Normal pulses. Heart sounds: Normal heart sounds. No murmur heard. Pulmonary: Effort: Pulmonary effort is normal. Breath sounds: Normal breath sounds. Abdominal: General: Bowel sounds are normal. There is no distension. Palpations: Abdomen is soft. Musculoskeletal: Cervical back: Normal range of motion. Skin: General: Skin is warm. Capillary Refill: Capillary refill takes less than 2 seconds. Neurological: Mental Status: He is alert and oriented to person, place, and time. Psychiatric: Mood and Affect: Mood normal. Diagnostic Studies / Procedures ELECTROCARDIOGRAMS: Results for orders placed or performed during the hospital encounter of 10/21/21 [address] [facility] Test Date: 2021-10-21 Pat Name: JUANITA NOVAK Department: 41 Room: EXAM13 Gender: Male Jet Pilot: CELIA : 1965 Requested By: PAOLO KIDD Order Number: [id number] Reading ADINA Stanton Measurements Intervals [place] Rate: 94 P: 49 NJ: 151 QRS: 10 QRSD: 82 T: 56 QT: 303 QTc: 380 Interpretive Statements SINUS RHYTHM NONSPECIFIC T-WAVE ABNORMALITY No previous ECG available for comparison No ischemic changes Paolo Kidd NP CRITICAL ALERT ISSUED ON 10-21-2021 16:25:46 ECG 12 lead Narrative [address] Test Date: 2021-10-21 Pat Name: JUANITA NOVAK Department: 41 Room: EXAM13 Gender: Male Jet Pilot: HAM : 1965 Requested By: PAOLO KIDD Order Number: [id number] Reading MD: Rush Stanton Measurements Intervals [place] Rate: 92 P: 46 NJ: 150 QRS: 13 QRSD: 86 T: 43 QT: 315 QTc: 391 Interpretive Statements SINUS RHYTHM Compared to ECG 10/21/2021 16:23:32 T-wave abnormality no longer present Normal Sinus Rhythm Paolo Kidd NP CRITICAL ALERT ISSUED ON 10-21-2021 19:28:20 LABORATORY STUDIES: Results for orders placed or performed during the hospital encounter of 10/21/21 CBC W/DIFF AUTOMATED Result Value Ref Range WBC 9.0 4.5 - 11.0 x10'3/uL RBC 5.35 4.70 - 6.10 x10'6/uL HGB 16.9 14.0 - 18.0 G/DL HCT 49.4 43.0 - 54.0 % MCV 92.3 80.0 - 94.0 FL MCH 31.6 (H) 27.0 - 31.0 PG MCHC 34.2 32.0 - 36.0 G/DL RDW 12.8 11.5 - 14.5 % PLT 231 130 - 400 x10'3/uL MPV 10.7 9.3 - 12.2 FL DIFFERENTIAL TYPE AUTOMATED DIFFERENTIAL NEUTROPHILS 62.4 % LYMPHOCYTES 28.5 % MONOCYTES 6.2 % EOSINOPHILS 1.4 % BASOPHILS 1.3 % IMMATURE GRANS 0.2 % ABS. NEUTROPHILS TOTAL 5.61 1.80 - 7.70 x10'3/uL ABS. LYMPHOCYTES 2.57 1.00 - 4.80 x10'3/uL ABS. MONOCYTES 0.56 0.30 - 0.82 x10'3/uL ABS. EOSINOPHILS 0.13 0.04 - 0.54 x10'3/uL ABS. BASOPHILS 0.12 (H) 0.01 - 0.08 x10'3/uL ABS. IMMATURE GRANULOCYTES 0.02 0.00 - 0.49 x10'3/uL COMPREHENSIVE METABOLIC PANEL Result Value Ref Range GLUCOSE 119 (H) 70 - 99 MG/DL BUN 22 (H) 7 - 18 MG/DL CREATININE S/P/B 1.32 (H) 0.7 - 1.3 MG/DL SODIUM 138 136 - 145 MMOL/L POTASSIUM 4.6 3.5 - 5.1 MMOL/L CHLORIDE S/P/B 107 100 - 108 MMOL/L CO2 28.0 21 - 32 MMOL/L CALCIUM 9.1 8.5 - 10.1 MG/DL BILIRUBIN TOTAL S/P/B 0.4 0.2 - 1.2 MG/DL TOTAL PROTEIN S/P/B 8.0 6.4 - 8.2 G/DL ALBUMIN S/P/B 4.0 3.4 - 5.0 G/DL AST 27 15 - 37 U/L ALT 56 16 - 60 U/L ALKALINE PHOSPHATASE S/P/B 97 50 - 136 U/L ANION GAP 3.0 (L) 5 - 15 MMOL/L BUN CREATININE RATIO 16.7 6 - 26 A/G RATIO 1.0 1.0 - 2.0 RATIO GFR ESTIMATE 64 (L) >90 ML/MIN/1.73 M2 TROPONIN, QUANT Result Value Ref Range TROPONIN I HIGH SENSITIVITY 4 <79 ng/L TROPONIN, QUANT Result Value Ref Range TROPONIN I HIGH SENSITIVITY <3 <79 ng/L IMAGING STUDIES XR CHEST PORTABLE Final Result by User, [id number] (10/21 234) Examination: Chest x-ray 1 view Exam date/time: 10/21/2021 5:12 PM Reason For Exam: Chest pain Comparison: None available Technique: Upright AP view of the chest demonstrated. Findings: The heart size is normal. The cardiomediastinal silhouette is within normal limits. The pulmonary vascular pattern appears unremarkable. Linear opacity at the left lung base. No additional focal pulmonary consolidation. No pleural effusion. No pneumothorax. =====IMPRESSION:===== Tiny linear opacity at the left lung base that could be seen with atelectasis. Otherwise, no additional radiographic evidence of an acute cardiopulmonary abnormality Ordered By: PAOLO KIDD Interpreted By: Asif Carter MD, 10/21/2021 5:15 PM ED Course / Medical Decision Making MDM Number of Diagnoses or Management Options Chest pain varying with breathing Chest pain Elevated blood pressure reading Diagnosis management comments: Pulse Ox Interpretation: Saturation: (%) 98 Oxygen Delivery: Room air Interpretation: No hypoxia at this time. Rhythm strip interpretation: Normal sinus rhythm, no arrhythmia noted. Ventricular rate (bpm): 94 Patient presents with pain worse with deep breathing. Patient's work-up does not show any acute emergent findings. Patient's pain had improved, normal EKG, normal initial troponin and repeat serial troponin within normal limits. No effusions or infiltrates noted on chest x-ray. patient is a low heart score, feel that following up with his primary is appropriate. On re-examination, Patient's blood pressure mildly elevated but patient is asymptomatic without anyvisual disturbances, numbness/tingling upper lower extremities, chest pain, shortness of breath, dizziness-all other vitals within normal limits discussed return precautions with the patient including all the red flag signs or symptoms of when to return the patient. The patient verbalized understanding and was agreeable with discharge and closefollow-up Amount and/or Complexity of Data Reviewed Clinical lab tests: ordered and reviewed Tests in the radiology section of CPT??: ordered and reviewed Tests in the medicine section of CPT??: ordered and reviewed Review and summarize past medical records: yes Independent visualization of images, tracings, or specimens: yes Risk of Complications, Morbidity, and/or Mortality Presenting problems: moderate Diagnostic procedures: minimal Management options: low Patient Progress Patient progress: stable (Patient advised regarding concerning signs and symptoms, and return precautions. I ensured the patient's understanding of instructions utilizing teach-back. Advised to call if there were any questions. Patient agrees with plan for discharge and will make sure to follow up.All of patient's questions answered before discharge. ) ED Course as of 10/21/212131Oct 21, 2021 1625 ECG 12 lead Sinus rhythm, rate 94 NO STEMI NO ECTOPY NO TACHYCARDIA No obvious ischemic findings noted Nonspecific t-wave abnormality [KP] 1720 Tiny linear opacity at the left lung base that could be seen with atelectasis. Otherwise, no additional radiographic evidence of an acute cardiopulmonary abnormality [KP] 1922 ECG 12 lead Sinus rhythm, Rate 92 NO STEMI NO ECTOPY NO TACHYCARDIA [KP] ED Course User Index [KP] Paolo Kidd APRN Medications aspirin chewable tablet 324 mg (324 mg Oral Given 10/21/21 1632) famotidine (PF) (PEPCID) injection 20 mg (20 mg Intravenous Given 10/21/21 1636) Clinical Impression Chest pain Chest pain varying with breathing (Primary) Elevated blood pressure reading Disposition: Discharge There are no discharge medications for this patient. Follow-up: John Quinones MD [address] [place] [phone] Schedule an appointment as soon as possible for a visit in 3 days Paolo Kidd APRN 10/21/2021 Paolo Kidd APRN, dictated portions of this note using [employer]OCO speech recognition software. Occasional wrong word or sound-alike substitutions may have occurred due to the inherent limitations of voice recognition software. Please read the chart carefully and recognize, using context, where the santiago bstitutions may have occurred. Paolo Kidd APRN 10/21/212131 Cosigned by Darnell Conway MD at 10/22/2021 11:20 AM CDT documented in this encounter Plan of Treatment Upcoming Encounters Date Type Department Care Team (Late st Contact Info) Description 11/17/2024 8:45 AM CDT Office Visit [facility] [address] [place] [address] Stan Wan NP [address] [place] [address] documented as of this encounter Procedures Procedure Name Priority Date/Time Associated Diagnosis Comments ECG 12-LEAD STAT 10/21/2021 7:20 PM CDT TROPONIN, QUANT STAT 10/21/2021 6:21 PM CDT XR CHEST PORTABLE STAT 10/21/2021 5:1 2 PM CDT COMPREHENSIVE METABOLIC PANEL STAT 10/21/2021 4:29 PM CDT CBC W/DIFF AUTOMATED STAT 10/21/2021 4:29 PM CDT TROPONIN, QUANT STAT 10/21/2021 4:29 PM CDT ECG 12-LEAD STAT 10/21/2021 4:23 PM CDT documented in this encounter Results * ECG 12 lead (10/21/2021 7:20 PM CDT) 10/21/2021 7:20 PM CDT Narrative [facility] - 10/21/2021 8:33 PM CDT [facility] ? [address] [place] ? Test Date: ?2021-10-21 Pat Name: ? JUANITA NOVAK ?Department: ?? 41 ? Room: ? EXAM13 Gender: ? Male ? Jet Pilot: ?? GDD : ?1965 ? Requested By: PAOLO MALDONADOYOR Order Number: [id number] ? Reading MD: ?? Rush Hushion ? Measurements Intervals ?[place] ? Rate: ? 92 ? P: ?46 NJ: ? 150 ?QRS: ?13 QRSD: ? 86 ? T: ?43 QT: ? 315 ? QTc: ?391 ? Interpretive Statements SINUS RHYTHM Compared to ECG 10/21/2021 16:23:32 T-wave abnormality no longer present Normal Sinus Rhythm Paolo Kidd NP CRITICAL ALERT ISSUED ON 10-21-2021 19:28:20 Procedure Note Rush Stanton MD - 10/21/[address] Test Date: 2021-10-21 Pat Name: JUANITA NOVAK Department: 41 Room: [facility] Gender: Male Jet Pilot: HAM : 1965 Requested By: PAOLO KIDD Order Number: [id number] Reading MD: Rush Stanton Measurements Intervals [place] Rate: 92 P: 46 NJ: 150 QRS: 13 QRSD: 86 T: 43 QT: 315 QTc: 391 Interpretive Statements SINUS RHYTHM Compared to ECG 10/21/2021 16:23:32 T-wave abnormality no longer present Normal Sinus Rhythm Paolo Kidd NP CRITICAL ALERT ISSUED ON 10-21-2021 19:28:20 Paolo Kidd PSYCHIATRIC SOCIAL WORKER SUPERVISOR ECG ORDERABLES Final Result Performing Organization Address City/State/[facility] Co de Phone Number [facility] RAD * TROPONIN, QUANT (10/21/2021 6:21 PM CDT) TROPONIN I HIGH SENSITIVITY <3 <79 ng/L 10/21/2021 8:00 PM CDT [facility] Comment: HIGH DOSES OF BIOTIN, TROPONIN-SPECIFIC AUTOANTIBODIES, AND ANTIBODY THERAPY CONTAINING HAMA MAY INTERFERE WITH THIS TEST RESULT. CORRELATION TO CLINICAL HISTORY AND PRESENTATION RECOMMENDED. 10/21/2021 6:21 PM CDT Paolo Kidd PSYCHIATRIC SOCIAL WORKER SUPERVISOR LABORATORY Final Result [facility] [address] [place] [address], [place] [phone] * XR CHEST PORTABLE (10/21/2021 5:12 PM CDT) Anatomical Region Laterality Modality Chest Radiographic Luli ging 10/21/2021 5:15 PM CDT Impressions 10/21/2021 5:17 PM CDT =====IMPRESSION:===== Tiny linear opacity at the left lung base that could be seen with atelectasis. Otherwise, no additional radiographic evidence of an acute cardiopulmonary abnormality Ordered By: PAOLO KIDD Interpreted By: Asif Carter MD, 10/21/2021 5:15 PM Narrative 10/21/2021 5:17 PM CDT Examination: Chest x-ray 1 view Exam date/time: 10/21/2021 5:12 PM Reason For Exam: ??Chest pain ? Comparison: None available Technique: Upright AP view of the chest demonstrated. Findings: ??The heart size is normal. The cardiomediastinal silhouette is within normal limits. The pulmonary vascular pattern appears unremarkable. Linear opacity at the left lung base. No additional focal pulmonary consolidation. No pleural effusion. No pneumothorax. Procedure Note Asif Carter MD - 10/21/2021 Examination: Chest x-ray 1 view Exam date/time: 10/21/2021 5:12 PM Reason For Exam: Chest pain Comparison: None available Technique: Upright AP view of the chest demonstrated. Findings: The heart size is normal. The cardiomediastinal silhouette iswithin normal limits. The pulmonary vascular pattern appears unremarkable.Linear opacity at the left lung base. No additional focal pulmonaryconsolidation. No pleural effusion. No pneumothorax. =====IMPRESSION:===== Tiny linear opacity at the left lung base that could be seen withatelectasis. Otherwise, no additional radiographic evidence of an acutecardiopulmonary abnormality Ordered By: PAOLO KIDD Interpreted By: Asif Carter MD, 10/21/2021 5:15 PM Paolo Kdid PSYCHIATRIC SOCIAL WORKER SUPERVISOR GENERAL IMAGING Final Result * TROPONIN, QUANT (10/21/2021 4:29 PM CDT) Pathologist [facility] TROPONIN I HIGH SENSITIVITY 4 <79 ng/L 10/21/2021 5:07 PM CDT [facility] Comment: HIGH DOSES OF BIOTIN, TROPONIN-SPECIFIC AUTOANTIBODIES, AND ANTIBODY THERAPY CONTAINING HAMA MAY INTERFERE WITH THIS TEST RESULT. CORRELATION TO CLINICAL HISTORY AND PRESENTATION RECOMMENDED. 10/21/2021 4:29 PM CDT Paolo Kidd PSYCHIATRIC SOCIAL WORKER SUPERVISOR LABORATORY Final Result [facility] [address] [place] [address], [place] [phone] * (ABNORMAL) COMPREHENSIVE METABOLIC PANEL (10/21/2021 4:29 PM CDT) GLUCOSE 119(H) 70 - 99 MG/DL 10/21/2021 5:07 PM CDT [facility] BUN 22(H) 7 - 18 MG/DL 10/21/2021 5:07 PM CDT [facility] CREATININE S/P/B 1.32(H) 0.7 - 1.3 MG/DL 10/21/2021 5:07 PM CDT [facility] SODIUM S/P/B 138 136 - 145 MMOL/L 10/21/2021 5:07 PM CDT [facility] POTASSIUM S/P/B 4.6 3.5 - 5.1 MMOL/L 10/21/2021 5:07 PM CDT [facility] Comment:SLIGHT HEMOLYSIS, RE SULT MAY BE AFFECTED. CHLORIDE S/P/B 107 100 - 108 MMOL/L 10/21/2021 5:07 PM CDT [facility] CO2 28.0 21 - 32 MMOL/L 10/21/2021 5:07 PM CDT [facility] CALCIUM S/P/B 9.1 8.5 - 10.1 MG/DL 10/21/2021 5:07 PM CDT [facility] BILIRUBIN TOTAL S/P/B 0.4 0.2 - 1.2 MG/DL 10/21/2021 5:07 PM CDT [facility] Comment: THIS ASSAY IS NOT RECOMMENDED FOR PATIENTS UNDERGOING TREATMENT WITH ELTROMBOPAG DUE TO THE POTENTIAL FOR FALSELY ELEVATED RESULTS. TOTAL PROTEIN S/P/B 8.0 6.4 - 8.2 G/DL 10/21/2021 5:07 PM CDT [facility] ALBUMIN S/P/B 4.0 3.4 - 5.0 G/DL 10/21/2021 5:07 PM CDT [facility] AST 27 15 - 37 U/L 10/21/2021 5:07 PM CDT [facility] Comment:SLIGHT HEMOLYSIS, RE SULT MAY BE AFFECTED. ALT 56 16 - 60 U/L 10/21/2021 5:07 PM CDT [facility] ALKALINE PHOSPHATASE S/P/B 97 50 - 136 U/L 10/21/2021 5:07 PM CDT [facility] ANION GAP 3.0(L) 5 - 15 MMOL/L 10/21/2021 5:07 PM CDT [facility] BUN CREATININE RATIO 16.7 6 - 26 10/21/2021 5:07 PM CDT [facility] A/G RATIO 1.0 1.0 - 2.0 RATIO 10/21/2021 5:07 PM CDT [facility] GFR ESTIMATE 64(L) >90 ML/MIN/1.7 3 M2 10/21/2021 5:07 PM CDT [facility] Comment: NOTE: eGFR is not calculated for patients <18 years of age. This is an estimated GFR calculation using the new CKD EPI creatinine equation without race and so does not require a correction factor for race. This estimated GFR should not be used for calculating drug doses. 10/21/2021 4:29 PM CDT Paolo Kidd PSYCHIATRIC SOCIAL WORKER SUPERVISOR LABORATORY Final Result [facility] [address] [place] [id number], * (ABNORMAL) CBC W/DIFF AUTOMATED (10/21/2021 4:29 PM CDT) WBC 9.0 4.5 - 11.0 x10'3/uL 10/21/2021 4:45 PM CDT [facility] RBC 5.35 4.70 - 6.10 x10'6/uL 10/21/2021 4:45 PM CDT [facility] HGB 16.9 14.0 - 18.0 G/DL 10/21/2021 4:45 PM CDT [facility] HCT 49.4 43.0 - 54.0 % 10/21/2021 4:45 PM CDT [facility] MCV 92.3 80.0 - 94.0 FL 10/21/2021 4:45 PM CDT [facility] MCH 31.6(H) 27.0 - 31.0 PG 10/21/2021 4:45 PM CDT [facility] [facility] MCHC 34.2 32.0 - 36.0 G/DL 10/21/2021 4:45 PM CDT [facility] RDW 12.8 11.5 - 14.5 % 10/21/2021 4:45 PM CDT [facility] PLT 231 130 - 400 x10'3/uL 10/21/2021 4:45 PM CDT [facility] MPV 10.7 9.3 - 12.2 FL 10/21/2021 4:45 PM CDT [facility] DIFFERENTIAL TYPE AUTOMATED DIFFERENTIAL 10/21/2021 4:45 PM CDT [facility] NEUTROPHILS % 62.4 % 10/21/2021 4:45 PM CDT [facility] LYMPHOCYTES % 28.5 % 10/21/2021 4:45 PM CDT [facility] MONOCYTES % 6.2 % 10/21/2021 4:45 PM CDT [facility] EOSINOPHILS 1.4 % 10/21/2021 4:45 PM CDT [facility] BASOPHILS 1.3 % 10/21/2021 4:45 PM CDT [facility] IMMATURE GRANS % 0.2 % 10/22/19 4:45 PM CDT [facility] ABS. NEUTROPHILS TOTAL 5.61 1.80 - 7.70 x10'3/uL 10/21/2021 4:45 PM CDT [facility] ABS. LYMPHOCYTES 2.57 1.00 - 4.80 x10'3/uL 10/21/2021 4:45 PM CDT [facility] ABS. MONOCYTES 0.56 0.30 - 0.82 x10'3/uL 10/21/2021 4:45 PM CDT [facility] ABS. EOSINOPHILS 0.13 0.04 - 0.54 x10'3/uL 10/21/2021 4:45 PM CDT [facility] ABS. BASOPHILS 0.12(H) 0.01 - 0.08 x10'3/uL 10/21/2021 4:45 PM CDT [facility] ABS. IMMATURE GRANULOCYTES 0.02 0.00 - 0.49 x10'3/uL 10/21/2021 4:45 PM CDT [facility] 10/21/2021 4:29 PM CDT Paolo Kidd APRN LABORATORY Final Result Performing Organization Address [facility]/State/ZIP Co de Phone Number [facility] [address] [place] [address], * ECG 12 lead (10/21/2021 4:23 PM CDT) 10/21/2021 4:23 PM CDT Narrative [facility] - 10/21/2021 8:42 PM CDT ?[facility] ? [address] [place] ? Test Date: ?2021-10-21 Pat Name: ? JUANITA NOVAK ?Department: ?? 41 ? Room: ? EXAM13 Gender: ? Male ? Jet Pilot: ?? AH : ?1965 ? Requested By: PAOLO FELICIANO Order Number: [id number] ? Reading MD: ?? Rush Hushion ? Measurements Intervals ?[place] ? Rate: ? 94 ? P: ?49 [place]: ? 151 ?QRS: ?10 QRSD: ? 82 ? T: ?56 QT: ? 303 ? QTc: ?380 ? Interpretive Statements SINUS RHYTHM NONSPECIFIC T-WAVE ABNORMALITY No previous ECG available for comparison No ischemic changes Paolo Kidd NP CRITICAL ALERT ISSUED ON 10-21-2021 16:25:46 Procedure Note Rush Stanton MD - 10/21/[address] [facility] Test Date: 2021-10-21 Pat Name: JUANITA NOVAK Department: 41 Room: [facility] Gender: Male Jet Pilot: CELIA : 1965 Requested By: PAOLO KIDD Order Number: [id number] Reading MD: Rush Stanton Measurements Intervals [place] Rate: 94 P: 49 [place]: 151 QRS: 10 QRSD: 82 T: 56 QT: 303 QTc: 380 Interpretive Statements SINUS RHYTHM NONSPECIFIC T-WAVE ABNORMALITY No previous ECG available for comparison No ischemic changes Paolo Kidd NP CRITICAL ALERT ISSUED ON 10-21-2021 16:25:46 Paolo Kidd PSYCHIATRIC SOCIAL WORKER SUPERVISOR ECG ORDERABLES Final Result [facility] RAD documented in this encounter Visit Diagnoses Diagnosis Chest pain varying with breathing- Primary Chest pain Chest pain, unspecified Elevated blood pressure reading Elevated blood pressure reading without diagnosis of hypertension documented in this encounter Administered Medications Inactive Administered Medications - up to 3 most recent administrations Medication Order MAR Action Action Date Dose Rate Site aspirin chewable tablet 324 mg 324 mg, Oral, Once, 1 dose, On Sun10/21/21 at 1630 Given 10/21/2021 4:32 PM CDT 324 mg famotidine (PF) (PEPCID) injection 20 mg 20 mg, Intravenous, Once, 1 dose, On Sun10/21/21 at 1630, IV Push over 2 minutes Given 10/21/2021 4:36 PM CDT 20 mg documented in this encounter Active and Recently Administered Medications Times are shown in CDT. Scheduled Medication Order 10/19/2021 10/20/2021 10/21/2021 aspirin chewable tablet 324 mg (COMPLETED) 324 mg, Oral, Once, 1 dose, On Sun10/21/21 at 1630 1632 (Given - Provid er: Juan Pastor RN) famotidine (PF) (PEPCID) injection 20 mg (COMPLETED) 20 mg, Intravenous, Once, 1 dose, On Sun10/21/21 at 1630, IV Push over 2 minutes 1636 (Given - Provid er: Juan Pastor RN) documented in this encounter Care Teams Railroad Mechanic Relationship Specialty Start Date End Date John Quinones MD [address] [place] [address] PCP - General INTERNAL MEDICINE 10/21/21 Willy Gomez MD Three [facility]. [facility] [address] [place] [address] [place] Information Technology Consultant CARDIOVASCULAR DISEASE 12/11/17 documented as of this encounter
--- OUTSIDE RECORDS SUMMARY | 2024-05-05 00:11 | XMS_ITS | Encounter Summary ---
Author Organization [facility] Address [address] [place] [address]. [place] [address] [place] [address] Care Team Providers Care Business Developer Name Role Phone Willy Gomez MD Unavailable [phone] John Escobar MD Primary Care Provider [phone] Reason for Referral * Imaging (Emergency) - Closed Specialty Diagnoses / Procedures Referred By Magy lutz Referred To Contact RADIOLOGY Diagnoses Localized enlarged lymph nodes Procedures CT CHEST W CON John Escobar MD [address] [place] [address] Phone: tel: fax: Referral ID Status Reason Start Date Expiration Date Visits Re quested Visits Authorized [id number] Closed 06/15/2022 06/15/2023 1 1 Reason for Visit * Imaging (Emergency) - Closed Specialty Diagnoses / Procedures Referred By Magy lutz Referred To Contact RADIOLOGY Diagnoses Localized enlarged lymph nodes Procedures CT CHEST W CON John Escobar MD [address] [place] [address] Phone: tel: fax: Referral ID Status Reason Start Date Expiration Date Visits Re quested Visits Authorized [id number] Closed 06/15/2022 06/15/2023 1 1 Encounter Details Date Type Department Care Team (Latest Contact Info) Description 07/18/2022 3:20 PM CDT - 07/18/2022 11:59 PM CDT Hospital Encounter [facility] [address] [place] [address] John Escobar MD [address] [facility] [address] [place] [address] Discharge Disposition: Home or Self Care (Routine [...] Recorded In the last 10 days, have yo u been in contact with someone who was confirmed or suspected to have Coronavirus/COVID-19? No / Unsure 07/18/2022 3:17 PM CDT documented as of this encounter Medications at Time of Discharge telmisartan (MICARDIS) 20 MG Tab Take 1 tablet (20 mg total) by mouth daily. 06/19/2022 documented as of this encounter Plan of Treatment Upcoming Encounters Date Type Department Care Team (Late st Contact Info) Description 11/17/2024 8:45 AM CDT [facility] [address], [facility] [address] [place] [address] Stan Wan, SANDIE Three [facility] [address] [place] [address] documented as of this encounter Procedures Procedure Name Priority Date/Time Associated Diagnosis Comments CT CHEST W CON STAT 07/18/2022 4:06 PM CDT Localized enlarged lymph nodes documented in this encounter Results * CT CHEST W CON (07/18/2022 4:06 PM CDT) Anatomical Region Laterality Modality Chest Computed Tomogra phy 07/18/2022 4:22 PM CDT Impressions 07/18/2022 4:34 PM CDT IMPRESSION: MILDLY PROMINENT RIGHT SUPRACLAVICULAR LYMPH NODE CORRESPONDING TO THE PALPABLE MASS DENOTED BY THE BB MARKER. RIGHT PERICARDIAL CYST. DIFFUSE HEPATIC STEATOSIS. INDETERMINATE BILATERAL ADRENAL NODULES, POSSIBLY ADENOMAS. Referred By: JOHN ESCOBAR Interpreted By: Curry García MD, 07/18/2022 4:22 PM Narrative 07/18/2022 4:34 PM CDT EXAM: CT CHEST W CON INDICATION: Chest breath and cough. ??Palpable right neck lump, suspected to represent supraclavicular adenopathy. TECHNIQUE: Axial CT of the chest performed. ??Patient received 100 cc Isovue-370 via a right antecubital fossa venous catheter with no adverse reaction. ??External BB marker placed in the area of the palpable lump. A radiation dose lowering technique was used for this procedure, which may include, but is not limited to, dose reduction technique, automated exposure control, the use of iterative reconstruction, ALARA (As Low As Reasonably Achievable) techniques, and Image Gently techniques. COMPARISON EXAM: None FINDINGS: Corresponding to the BB marker, there is a borderline sized and several nonenlarged right supraclavicular lymph nodes. ??The borderline enlarged node measures 18 x 17 x 12 mm. ??No other thoracic adenopathy. ??The lungs are clear. ??Pulmonary outflow tract and thoracic and upper abdominal aorta are normal in caliber. ??There is a probable pericardial cyst in the right pericardial fat, measuring 4.2 cm in craniocaudal dimension, 3.2 cm in anterior posterior dimension and 1.6 cm in width. ??This measures 9 Hounsfield units. ??No pericardial effusion. ??Upper abdomen demonstrates diffuse hepatic steatosis. ??There are bilateral indeterminate adrenal nodules, possibly adenomas. ??If desired, nonemergent outpatient CT or MRI using the adrenal mass protocol may be considered. Procedure Note Curry García MD - 07/18/2022 EXAM: CT CHEST W CON INDICATION: Chest breath and cough. Palpable right neck lump, suspectedto represent supraclavicular adenopathy. TECHNIQUE: Axial CT of the chest performed. Patient received 100 ccIsovue-370 via a right antecubital fossa venous catheter with no adversereaction. External BB marker placed in the area of the palpable lump. A radiation dose lowering technique was used for this procedure, which mayinclude, but is not limited to, dose reduction technique, automatedexposure control, the use of iterative reconstruction, ALARA (As Low AsReasonably Achievable) techniques, and Image Gently techniques. COMPARISON EXAM: None FINDINGS: Corresponding to the BB marker, there is a borderline sized andseveral nonenlarged right supraclavicular lymph nodes. The borderlineenlarged node measures 18 x 17 x 12 mm. No other thoracic adenopathy.The lungs are clear. Pulmonary outflow tract and thoracic and upperabdominal aorta are normal in caliber. There is a probable pericardialcyst in the right pericardial fat, measuring 4.2 cm in craniocaudaldimension, 3.2 cm in anterior posterior dimension and 1.6 cm in width.This measures 9 Hounsfield units. No pericardial effusion. Upper abdomendemonstrates diffuse hepatic steatosis. There are bilateral indeterminateadrenal nodules, possibly adenomas. If desired, nonemergent outpatient CTor MRI using the adrenal mass protocol may be considered. IMPRESSION: MILDLY PROMINENT RIGHT SUPRACLAVICULAR LYMPH NODECORRESPONDING TO THE PALPABLE MASS DENOTED BY THE BB MARKER. RIGHT PERICARDIAL CYST. DIFFUSE HEPATIC STEATOSIS. INDETERMINATE BILATERAL ADRENAL NODULES, POSSIBLY ADENOMAS. Referred By: JOHN ESCOBAR Interpreted By: Curry García MD, 07/18/2022 4:22 PM John Escobar MD CT Final Result documented in this encounter Visit Diagnoses Diagnosis Localized enlarged lymph nodes Enlargement of lymph nodes documented in this encounter Administered Medications Inactive Administered Medications - up to 3 most recent administrations Medication Order MAR Action Action Date Dose Rate Site iopamidol (ISOVUE-370) 76 % injection 100 mL 100 mL, Intravenous, IMG once as needed, Contrast, 1 dose, Starting on 07/18/22 at 1605, Until Sun07/18/22 at 1605 Given 07/18/2022 4:05 PM CDT 100 mLs documented in this encounter Care Teams Business Developer Relationship Specialty Start Date End Date John Escobar MD [address] [place] [address] PCP - General INTERNAL MEDICINE 10/21/21 Willy Gomez MD Three [facility]. [address] [place] [address] [place] Windows Laptop Technician CARDIOVASCULAR DISEASE 12/11/17 documented as of this encounter
--- OUTSIDE RECORDS SUMMARY | 2024-05-05 00:11 | XMS_ITS | Encounter Summary ---
Author Organization [facility] Address [facility] [place] [address] [place] [address] Care Team Providers Care Service Line Bus Cleaner Name Role Phone Willy Gomez MD Unavailable [phone] John Quinones MD Primary Care Provider [phone] Reason for Visit * Imaging (Routine) - Closed Specialty Diagnoses / Procedures Referred By Magy lutz Referred To Contact RADIOLOGY Diagnoses Pericardial cyst (HHS/HCC) Procedures USE ECHOCARDIOGRAM W CON USE ECHOCARDIOGRAM Willy Gomez MD Three [facility]. [address] [address] Phone: tel: fax: Referral ID Status Reason Start Date Expiration Date Visits Re quested Visits Authorized [id number] Closed 08/15/2022 09/15/2023 1 1 Encounter Details Date Type Department Care Team (Late st Contact Info) Description 10/02/2022 6:55 AM CDT - 10/02/2022 11:59 PM T Hospital Encounter [facility] [place] [address] Willy Gomez MD Three [facility]. [address] [id number] Discharge Disposition: Home or Self Care (Routine Discharge) Social History Tobacco Use Types Packs/Day Years Used Date Smoking Tobacco: Never Smokeless Tobacco: Never Alcohol Use Standard Drinks/Week Comments Yes 33.3 (1 standard drink = 0.6 oz pure alcohol) beer Sex and Gender Information Value Date Recorded [...] suspected to have Coronavirus/COVID-19? No / Unsure 10/02/2022 6:54 AM CDT documented as of this encounter Medications [...] 11/17/2024 8:45 AM CDT Office Visit [facility], [facility] [address] [place] [address] Stan Wan NP [facility] [address] [place] [address] documented as of this encounter Procedures Procedure Name Priority Date/Time Associated Diagnosis Comments USE ECHOCARDIOGRAM W CON Routine 10/02/2022 7:42 AM CDT Pericardial cyst (HHS/HCC) documented in this encounter Results * USE ECHOCARDIOGRAM W CON (10/02/2022 7:42 AM CDT) Anatomical Region Laterality Modality NA Echocardiogram 10/02/2022 7:06 AM CDT Narrative 10/02/2022 1:17 PM CDT ?Echocardiography Report Pat.Name: ??JUANITA NOVAK ? Pat.ID: ?[id number] ? St.Date: ?? 10/02/2022 ? Refer.MD: ??[id number] DONI Benavides ? EWDPROV ?EWDPROV Exam Time: 7:06:00 AM ? Study Type:ECHO WITH CARDIAC DOPPLER COMP Height: ?67 in ? Weight: ?242 lb ? BSA: ? 2.19 m2 ?Age: ??1965,56Y ? Sex: ? M ? BP: ?142/82 ? HR: ?78 bpm ?Sonogrphr: Belgica Hernandes RDCS Pat. Stat.:Outpatient ? Reason for Study:Pericardial cyst ?? Procedures: 2D, M-mode, Doppler, Color Flow, Definity was used to enhance endocardial definition. The study quality is technically difficult. Race: ?W ? ++++++++++++++++++++++++++++++++++++ SUMMARY: ++++++++++++++++++++++++++++++++++++ The left ventricular size is normal. The left ventricular systolic function is normal. Estimated left ventricular ejection fraction is 60-65%. Left ventricular diastolic function is normal. Wall motion appears normal in all segments. The right ventricle size is normal. The right ventricular function is normal. No significant valvular abnormalities. Pericardial cyst not visualized. ++++++++++++++++++++++++++++++++++++ FINDINGS: ++++++++++++++++++++++++++++++++++++ LV: ? The left ventricular size is normal. The left ventricular ?systolic function is normal. Estimated left ventricular ?ejection fraction is 60-65%. No left ventricular ?hypertrophy. Left ventricular diastolic function is normal. WM: ? Wall motion appears normal in all segments. RV: ? The right ventricle size is normal. The right ventricular ?function is normal. IVS: ?No evidence of ventricular septal defect. LA: ? Left atrial size is normal. RA: ? The right atrial size is normal. IAS: ?Atrial septum appears intact. JULISSA: ? Trivial pericardial effusion is noted. AO: ? Aorta is normal. SVn: ?Inferior vena cava is normal. Inferior vena cava shows >50% ?collapse with respiration consistent with normal right ?atrial pressure. AV: ? No evidence of aortic valve stenosis. No evidence of aortic ?regurgitation. MV: ? Trace mitral regurgitation. No evidence of mitral valve ?stenosis. PV: ? No evidence of pulmonic valve stenosis. No evidence of ?pulmonic regurgitation. TV: ? A trace of tricuspid regurgitation. Unable to grade right ?ventricular systolic pressure. No evidence of tricuspid ?valve stenosis. ++++++++++++++++++++++++++++++++++++ MEASUREMENTS: ++++++++++++++++++++++++++++++++++++ ?DOPPLER LVOT ?? LVOTpkPG ? 7 mmHg ?LVOTmnPG ? 3 mmHg LVOTpkVel ?130 cm/s (70-110)* LVOT SV ? 83 ml ?? LVOT TVI ?24 cm ? Right Atrium ?? RA Press ? 3 mmHg ?Nguyen's Disk ? 20 ? Pulmonary Veins ?? PVnpkVeld ? 45.7 cm/s ?PVnVs/Vd ? 1.5 ? PVnpkVels ? 67.6 cm/s ?PVn A Dur ?119 msec AV Forward Flow AV TVI ?30.3 cm ?AV pkPG ?9 mmHg AV pkVel ? 152 cm/s (100-170) Area (TVI) ?2.74 cm2 ??(3-5)* AV mnPG ?5 mmHg ?Area (Dieudonne) ?2.96 cm2 ??(3- 5)* MV Forward Flow MV DeTm ?195 msec ?MV pkE ? 108 cm/s (60- 130) MV E/A ? 1 ? MV pkA ? 108 cm/s PV Forward Flow PV pkVel ?92.6 cm/s (60-90)* PV AC ? 98 msec PV pkPG ?3 mmHg ? Lat E' ?? Lat e ? 11.1 cm/s ? Lat E/E' ?? Lat E/e ?9.7 ? Med E' ?? Med e ? 8.81 cm/s ? Med E/E' ?? Med E/e ? 12.3 ? Aortic Valve ?? Aortic Valve Ar ??1.25 ?Aortic Valve Ve ??0.86 ? PV Antegrade Flow Acceleration Sl ?? 802 cm/s2 ? Right Ventricle ?? Right Ventricle ??13.6 cm/s ?2D Left Ventricle ?? LVIDd ? 4.43 cm ?? (3.6-5.2) LV ESV ?33.8 ml ?? LVIDs ? 2.69 cm ?? (2.3-3.9) LV ESV ?27.6 ml ?? LngAxd ?8.45 cm ?LVESV BP ?30.6 ml ?? LngAxd ? 8 cm ?LV EF ? 70.6 % ?? LV EDV ? 115 ml ?LV EF ? 75.6 % ?? LV EDV ? 112 ml ?LV EF BP ?73.8 % ?? LVEDV BP ? 117 ml ?LV SV ? 81.2 ml ?? LngAxs ?6.46 cm ?LV SV ? 85.4 ml ?? LngAxs ?6.57 cm ?LV SV BP ?86.4 ml ?? LVPW ?? LVPWd ? 1.05 cm ? Ventricular Septum ?? IVSd ?1.09 cm ? Left Atrium ?? LA VOLBP ?33.4 ml ? Aorta ?? Ao Rtd ? 3.4 cm ?? (zsc 1.1) Ao Asc ? 2.9 cm ?? (zsc 0.9) LVOT ?? LVOT ? 2.1 cm ?LVOTArea ?3.46 cm2 Ratios ?? IVS LA Biplane LAVol I BP ?15.3 ml/m2 ? RA Single Plane Right Atrium MO ??8.63 mm ? Right Atrium Sy ??25.1 ml ?? Right Atrium Sy ??46.8 mm ? Right Atrium Sy ??11.5 ml/m2 Right Atrium Sy ??11.8 cm2 ? Right Ventricle ?? Right Ventricle ??37.7 mm ? Right Ventricle ?35 mm ?? Major Newhall ?71.4 mm ?MMODE TA ?? Tricuspid Annul ??23.8 mm ? <Electronic Signature> 10/02/2022 01:17 PM Willy Gomez M.D. Procedure Note Maira Philip MD - 10/02/2022 Echocardiography Report Pat.Name: JUANITA NOVAK Pat.ID: [id number] St.Date: 10/02/2022 Refer.: [id number] DONI Benavides EWDPROV EWDPROV Exam Time: 7:06:00 AM Study Type:ECHO WITH CARDIAC DOPPLER COMP Height: 67 in Weight: 242 lb BSA: 2.19 m2 Age: 7 1965,56Y Sex: M BP: 142/82 HR: 78 bpm Sonogrphr: Belgica Hernandes ESEQUIEL Pat. Stat.:Outpatient Reason for Study:Pericardial cyst Procedures: 2D, M-mode, Doppler, Color Flow, Definity was used to enhance endocardial definition. The study quality is technically difficult. Race: W ++++++++++++++++++++++++++++++++++++ SUMMARY: ++++++++++++++++++++++++++++++++++++ The left ventricular size is normal. The left ventricular systolic function is normal. Estimated left ventricular ejection fraction is 60-65%. Left ventricular diastolic function is normal. Wall motion appears normal in all segments. The right ventricle size is normal. The right ventricular function is normal. No significant valvular abnormalities. Pericardial cyst not visualized. ++++++++++++++++++++++++++++++++++++ FINDINGS: ++++++++++++++++++++++++++++++++++++ LV: The left ventricular size is normal. The left ventricular systolic function is normal. Estimated left ventricular ejection fraction is 60-65%. No left ventricular hypertrophy. Left ventricular diastolic function is normal. WM: Wall motion appears normal in all segments. RV: The right ventricle size is normal. The right ventricular function is normal. IVS: No evidence of ventricular septal defect. LA: Left atrial size is normal. RA: The right atrial size is normal. IAS: Atrial septum appears intact. JULISSA: Trivial pericardial effusion is noted. AO: Aorta is normal. SVn: Inferior vena cava is normal. Inferior vena cava shows >50% collapse with respiration consistent with normal right atrial pressure. AV: No evidence of aortic valve stenosis. No evidence of aortic regurgitation. MV: Trace mitral regurgitation. No evidence of mitral valve stenosis. PV: No evidence of pulmonic valve stenosis. No evidence of pulmonic regurgitation. TV: A trace of tricuspid regurgitation. Unable to grade right ventricular systolic pressure. No evidence of tricuspid valve stenosis. ++++++++++++++++++++++++++++++++++++ MEASUREMENTS: ++++++++++++++++++++++++++++++++++++ DOPPLER LVOT LVOTpkPG 7 mmHg LVOTmnPG 3 mmHg LVOTpkVel 130 cm/s (70-110)* LVOT SV 83 ml LVOT TVI 24 cm Right Atrium RA Press 3 mmHg Nguyen's Disk 20 Pulmonary Veins PVnpkVeld 45.7 cm/s PVnVs/Vd 1.5 PVnpkVels 67.6 cm/s PVn A Dur 119 msec AV Forward Flow AV TVI 30.3 cm AV pkPG 9 mmHg AV pkVel 152 cm/s (100-170) Area (TVI) 2.74 cm2 (3-5)* AV mnPG 5 mmHg Area (Dieudonne) 2.96 cm2 (3-5)* MV Forward Flow MV DeTm 195 msec MV pkE 108 cm/s (60-130) MV E/A 1 MV pkA 108 cm/s PV Forward Flow PV pkVel 92.6 cm/s (60-90)* PV AC 98 msec PV pkPG 3 mmHg Lat E' Lat e 11.1 cm/s Lat E/E' Lat E/e 9.7 Med E' Med e 8.81 cm/s Med E/E' Med E/e 12.3 Aortic Valve Aortic Valve Ar 1.25 Aortic Valve Ve 0.86 PV Antegrade Flow Acceleration Sl 802 cm/s2 Right Ventricle Right Ventricle 13.6 cm/s 2D Left Ventricle LVIDd 4.43 cm (3.6-5.2) LV ESV 33.8 ml LVIDs 2.69 cm (2.3-3.9) LV ESV 27.6 ml LngAxd 8.45 cm LVESV BP 30.6 ml LngAxd 8 cm LV EF 70.6 % LV EDV 115 ml LV EF 75.6 % LV EDV 112 ml LV EF BP 73.8 % LVEDV BP 117 ml LV SV 81.2 ml LngAxs 6.46 cm LV SV 85.4 ml LngAxs 6.57 cm LV SV BP 86.4 ml LVPW LVPWd 1.05 cm Ventricular Septum IVSd 1.09 cm Left Atrium LA VOLBP 33.4 ml Aorta Ao Rtd 3.4 cm (zsc 1.1) Ao Asc 2.9 cm (zsc 0.9) LVOT LVOT 2.1 cm LVOTArea 3.46 cm2 Ratios IVS LA Biplane LAVol I BP 15.3 ml/m2 RA Single Plane Right Atrium MO 8.63 mm Right Atrium Sy 25.1 ml Right Atrium Sy 46.8 mm Right Atrium Sy 11.5 ml/m2 Right Atrium Sy 11.8 cm2 Right Ventricle Right Ventricle 37.7 mm Right Ventricle 35 mm Major Newhall 71.4 mm MMODE TA Tricuspid Annul 23.8 mm <Electronic Signature> 10/02/2022 01:17 PM Willy Gomez M.D. Willy Gomez MD ECHO Final Result documented in this encounter Visit Diagnoses Diagnosis Pericardial cyst (HHS/HCC) Other specified congenital anomaly of heart documented in this encounter Administered Medications Inactive Administered Medications - up to 3 most recent administrations Medication Order MAR Action Action Date Dose Rate Site perflutren lipid microsphere (DEFINITY) injection 2 mL 2 mL, Intravenous, IMG once as needed, Contrast, 1 dose, Starting on Sun10/02/22 at 0742, Until Sun10/02/22 at 0732, Administer over 30-60 seconds. Follow with 10 mL saline flush. Given 10/02/2022 7:32 AM CDT 2 mLs documented in this encounter Care Teams Service Line Bus Cleaner Relationship Specialty Start Date End Date John Quinones MD [address] [place], [place] [id number] PCP - General INTERNAL MEDICINE 10/21/21 Willy Gomez MD Three [facility]. [address] [place], [place] [id number] Precious Indirect Sales Exec CARDIOVASCULAR DISEASE 12/11/17 documented as of this encounter
--- OUTSIDE RECORDS SUMMARY | 2024-05-05 00:11 | XMS_ITS | Encounter Summary ---
Author Organization [facility] Address [address] [place] [address]. [place] [address] [place] [address] Care Team Providers Care Customer Security Clerk Name Role Phone Willy Gomez MD Unavailable [phone] John Quinones MD Primary Care Provider [phone] Encounter Details Date Type Department Care Team (Latest Contact Info) Description 12/12/2021 9:42 AM CDT - 12/12/2021 11:59 PM CDT Hospital Encounter [facility] [address] John Quinones MD [address] [place] [address] [address] [place] [address] Discharge Disposition: Home or Self [...] 11/17/2024 8:45 AM CDT Office Visit Shantelle Noel-[place] [address] [facility] [address], [place] [address] [place] [address] Stan Wan, NEWBORN HEARING SCREENER Three [facility] [address] [place] [address] documented as of this encounter Procedures Procedure Name Priority Date/Time Associated Diagnosis Comments D-DIMER, QUANTITATIVE Routine 12/12/2021 9:43 AM CDT Pleuritic pain documented in this encounter Results * D-DIMER, QUANTITATIVE (12/12/2021 9:43 AM CDT) D-DIMER 217 0 - 500 ng{FEU}/mL 12/12/2021 10:06 AM CDT [facility] Comment: D-Dimer values less than or equal to 500 ng/mL FEU have a negative predictive value of >95% for exclusion of deep vein thrombosis and pulmonary embolism. In patients over 50 (who tend to have higher normal baseline D-Dimer values), recent studies suggest age-adjusted D-Dimer cutoff values (calculated as: age [years] x 10 ng/mL) result in equivalent outcomes and no additional false negative findings. 12/12/2021 9:43 AM CDT John Quinones MD LABORATORY Final Result [facility] [address] [place] [address], documented in this encounter Visit Diagnoses Diagnosis Pleuritic pain Painful respiration documented in this encounter Care Teams Customer Security Clerk Relationship Specialty Start Date End Date John Quinones MD 1 [place] [address] PCP - General INTERNAL MEDICINE 10/21/21 Willy Gomez MD Three [facility]. [facility] [address] [place] [address] Precious Water Taxi Operator CARDIOVASCULAR DISEASE 12/11/17 documented as of this encounter
--- OUTSIDE RECORDS SUMMARY | 2024-05-05 00:11 | XMS_ITS | Encounter Summary ---
Author Organization [facility] Address [address] [place] [address]. [place] [address] [place] [address] Care Team Providers Care Book Reviewer Name Role Phone Willy Gomez MD Unavailable [phone] John Quinones MD Primary Care Provider [phone] Encounter Details Date Type Department Care Team (Latest Contact Info) Description 10/21/2021 Travel Social History Tobacco Use Types Packs/Day [...] PM CDT documented as of this encounter Plan of Treatment Upcoming Encounters Date Type Department Care Team (Late st Contact Info) Description 11/17/2024 8:45 AM CDT [facility] [address] [place] [address] Stan Wan, SANDIE [facility] [address] [place] [address] documented as of this encounter Visit Diagnoses Not on filedocumented in this encounter Care Teams Book Reviewer Relationship Specialty Start Date End Date John Quinones MD 1 [place] [address] PCP - General INTERNAL MEDICINE 10/21/21 Willy Gomez MD Three [facility]. [place] [address] [place] [address] Foster Last Scourer CARDIOVASCULAR DISEASE 12/11/17 documented as of this encounter
--- OUTSIDE RECORDS SUMMARY | 2024-05-05 00:11 | XMS_ITS | Encounter Summary ---
Author Organization [facility] Address [address] [place] [address]. [place] [address] [place] [address] Care Team Providers Care Service Transformer Repair Supervisor Name Role Phone Willy Gomez MD Unavailable [phone] John Quinones MD Primary Care Provider [phone] Encounter Details Date Type Department Care Team (Latest Contact Info) Description 08/15/2022 Travel Social History Tobacco Use Types Packs/Day [...] suspected to have Coronavirus/COVID-19? No / Unsure 08/15/2022 8:26 AM CDT documented as of this encounter Plan of Treatment Upcoming Encounters Date Type Department Care Team (Late st Contact Info) Description 11/17/2024 8:45 AM CDT [facility] [address] [place], [place] [id number] Stan Wan, SANDIE [facility] [address] [place], [place] [address] documented as of this encounter Visit Diagnoses Not on filedocumented in this encounter Care Teams Service Transformer Repair Supervisor Relationship Specialty Start Date End Date John Quinones MD 1 [place] [address] PCP - General INTERNAL MEDICINE 10/21/21 Willy Gomez MD Three [facility]. [place] [address] [place] [address] [place] Military Technology Specialist CARDIOVASCULAR DISEASE 12/11/17 documented as of this encounter
--- OUTSIDE RECORDS SUMMARY | 2024-05-05 00:11 | XMS_ITS | Encounter Summary ---
Author Organization [facility] Address [facility] [place] [address] [place] [address] Care Team Providers Care Contractor Buyer Name Role Phone Justin Marion MD Unavailable [phone] Marvel Escobar MD Primary Care Provider Reason for Referral * Imaging (Routine) - Closed Specialty Diagnoses / Procedures Referred By Magy lutz Referred To Contact RADIOLOGY Diagnoses Pericardial cyst (HHS/HCC) Procedures MRI CARDIAC WO CON Justin Marion MD [facility]. [facility] [address] [place] [address] Phone: tel: fax: Referral ID Status Reason Start Date Expiration Date Visits Re quested Visits Authorized [id number] Closed 09/26/2022 10/25/2022 1 1 Reason for Visit * Reason Comments Evaluation Consult Encounter Details Date Type Department Care Team (Late st Contact Info) Description 08/15/2022 9:00 AM CDT Office Visit [facility], [place] [address] [place] [address] Justin Marion MD [facility]. [facility] [address] [place] [address] Evaluation (Consult) Social History Tobacco Use Types Packs/Day Years [...] AM CDT documented as of this encounter Last Filed Vital Signs Vital Sign Reading Time Taken Comments Blood Pressure 120/74 08/15/2022 8:37 AM CDT Pulse 80 08/15/2022 8:37 AM CDT Temperature - - Respiratory Rate - - Oxygen Saturation 98% 08/15/2022 8:37 AM CDT Inhaled Oxygen Concentration - - Weight 109.8 kg (242 lb) 08/15/2022 8:37 AM CDT Height 170.2 cm (5' 7 ) 08/15/2022 8:37 AM CDT Body Mass Index 37.9 08/15/2022 8:37 AM CDT documented in this encounter Progress Notes * Justin Marion MD - 08/15/2022 9:00 AM CDT Reason for Visit: Evaluation (Consult) History of Present Illness: Juanita Novak is a 56-year-old gentleman being seen today at the request of Dr. Daugherty for pericardial cyst. He was found to have some supraclavicular lymphadenopathy. CT scan demonstrated, as said, lymphadenopathy, but incidentally also pericardial cyst. He has no consistent cardiac symptoms. He does have occasional episodes of shortness of breath, but reports that this is not consistent. He denies any heart failure symptoms including orthopnea, PND, lower extremity edema. He did have an episode of chest pain last summer, which resolved after treatment. He has no previous cardiovascular history. He tells me to take his dog out for a 2-mile walk the other day without difficulty. 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 He has no history of tobacco or illicit substance use. Consumes about 15 beers per week, largely on the weekends. He has no family history of premature coronary artery disease. #[id number] /JOANNE/BRENDAN Recommendations and Plan: Problem list: ?? HTN ?? Pericardial cyst ?? COLTEN on CPAP ?? Dyslipidemia ?? Asthma Pericardial cyst: We discussed the benign nature of pericardial cyst. I would like to obtain a transthoracic echo and a cardiac MRI to ensure there is no sign of cardiac compromise or any other underlying etiology that requires attention. Dyspnea on exertion: His symptoms have not been consistent. I would recommend monitoring for this time as long as his echo is normal. He will let me know if he develops any worsening symptoms. Dyslipidemia: 06/2022 labs included LDL 104. His 10-year cardiovascular risk is estimated at 5.8%. Irecommend he continue to focus on lifestyle changes and indeed he has already lost 20 pounds and isworking on exercising more and improving his diet. I will plan to see him back in six months unless issues arise in the interim. Thank you very much for allowing me to participate in the care of your patient. Please feel free tocontact me with any further questions or concerns. #[id number] /LAKIA Medications: Current Outpatient Medications: ??? telmisartan (MICARDIS) 20 MG Tab, telmisartan 20 mg tablet TAKE 1 TABLET BY MOUTH ONCE DAILY, Disp: , Rfl: ??? albuterol sulfate HFA 108 (90 Base) MCG/ACT inhaler, albuterol sulfate HFA 90 mcg/actuation aerosol inhaler 2 puffs up to 4 times a days as needed only; Must go to the Emergency Room if no reliefafter the 4th treatment., Disp: , Rfl: No Known Allergies Past Medical History: Diagnosis Date ??? Asthma ??? Chest tightness ??? Essential (primary) hypertension ??? Sleep apnea Past Surgical History: Procedure Laterality Date ??? NONE Social History Tobacco Use ??? Smoking status: Never ??? Smokeless tobacco: Never Substance Use Topics ??? Alcohol use: Yes Alcohol/week: 33.3 standard drinks Types: 20 Cans of beer per week Comment: beer ??? Drug use: No Family History Problem Relation Name Age of Onset ??? Stroke Mother ??? Heart Attack Father ??? Heart Attack Paternal Grandmother Family Status Relation Name Status ??? Mother Alive, age 78y ??? Father at age 63 ??? Sister Alive, age 57y ??? Brother at age 53 ??? Brother Alive, age 48y ??? MGM at age 77 ??? PGM at age 84 ??? PGF at age 72 Review of Systems Constitutional: Negative for recent [...] and new or significant memory loss. Vitals: 08/15/22 0837 BP: 120/74 Patient Position: Sitting BP Location: Right arm Pulse: 80 Weight: 109.8 kg (242 lb) Height: 5' 7 (1.702 m) Body mass index is 37.9 kg/m??. Cardiac [...] Normal gait. Comments: Diagnoses/Impression: 1. Pericardial cyst ELECTROCARDIOGRAM USE ECHOCARDIOGRAM MRI CARDIAC WO CON Referring Provider: No ref. provider found PCP: MARVEL ESCOBAR MD documented in this encounter Plan of Treatment Upcoming Encounters Date Type Department Care Team (Late st Contact Info) Description 11/17/2024 8:45 AM CDT Office Visit [facility] THREE [facility], [facility] [address] [place] [address] Stan Wan NP Three [facility] [address] [place], [place] [id number] documented as of this encounter Procedures Procedure Name Priority Date/Time Associated Diagnosis Comments ELECTROCARDIOGRAM (NON MIDMARK ACQUIRED) Routine 08/15/2022 8:48 AM CDT Pericardial cyst (HHS/HCC) documented in this encounter Results * MRI CARDIAC WO CON (11/15/2022) Anatomical Region Laterality Modality Cardiac Magnetic Resonan ce us Justin Marion MD MRI Final Result * ELECTROCARDIOGRAM (08/15/2022 8:48 AM CDT) 08/15/2022 8:48 AM CDT Narrative [facility] - 08/20/2022 11:29 PM CDT ?[facility], O? [place] ? Test Date: ?2022-08-15 Pat Name: ? JUANITA NOVAK ?Department: ?? 112 ? Room: ? Gender: ? Male ? Curtain Stretcher: ?? lw : ?1965 ? Requested By: JUSTIN MARION Order Number: [id number] ?Reading MD: ?? Eric Zion ? Measurements Intervals ?[place] ? Rate: ? 78 ? P: ?54 DC: ? 151 ?QRS: ?35 QRSD: ? 93 ? T: ?40 QT: ? 363 ? QTc: ?416 ? Interpretive Statements SINUS RHYTHM WITH SINUS ARRHYTHMIA COMPARED TO PREVIOUS TRACING No significant change Procedure Note Eric Donovan MD - 08/20/2022 [facility], O? [facility] Test Date: 2022-08-15 Pat Name: JUANITA NOVAK Department: [facility] Room: Gender: Male Curtain Stretcher: nino : 1965 Requested By: JUSTIN MARION Order Number: [id number] Reading MD: Eric Donovan Measurements Intervals [place] Rate: 78 P: 54 DC: 151 QRS: 35 QRSD: 93 T: 40 QT: 363 QTc: 416 Interpretive Statements SINUS RHYTHM WITH SINUS ARRHYTHMIA COMPARED TO PREVIOUS TRACING No significant change Justin Marion MD PROCEDURES-ORDERABLE NO CHARGE Final Result Performing Organization Address City/State/[facility] Co de Phone Number [facility] documented in this encounter Visit Diagnoses Diagnosis Pericardial cyst (HHS/HCC)- Primary Other specified congenital anomaly of heart Essential hypertension Unspecified essential hypertension Mixed hyperlipidemia documented in this encounter Care Teams Contractor Buyer Relationship Specialty Start Date End Date Marvel Escobar MD [address] [place], [place] [id number] PCP - General INTERNAL MEDICINE 10/21/21 Justin Marion MD Three [facility]. [place] [address] [place], [place] [id number] [place] Scruff Worker CARDIOVASCULAR DISEASE 12/11/17 documented as of this encounter
--- OUTSIDE RECORDS SUMMARY | 2024-05-05 00:11 | XMS_ITS | Encounter Summary ---
Author Organization [facility] Address [address] [place] [address]. [place] [address] [place] [address] Care Team Providers Care Certified Credit Counselor Name Role Phone Willy Gomez MD Unavailable [phone] John Quinones MD Primary Care Provider [phone] Encounter Details Date Type Department Care Team (Latest Contact Info) Description 07/18/2022 Travel Social History Tobacco Use Types Packs/Day [...] 11/17/2024 8:45 AM CDT [facility] [address] [place] [address] Stan Wan, SANDIE [facility] [address] [place] [address] documented as of this encounter Visit Diagnoses Not on filedocumented in this encounter Care Teams Certified Credit Counselor Relationship Specialty Start Date End Date John Quinones MD 1 [place] [address] PCP - General INTERNAL MEDICINE 10/21/21 Willy Gomez MD Three [facility]. [place] [address] [place] [address] [place] Family Support Specialist CARDIOVASCULAR DISEASE 12/11/17 documented as of this encounter
--- OUTSIDE RECORDS SUMMARY | 2024-05-05 00:11 | XMS_ITS | Encounter Summary ---
Author Organization [facility] Address [address] [place] [address]. [place] [address] [place] [address] Care Team Providers Care Right Of Way Supervisor Name Role Phone Willy Gomez MD Unavailable [phone] John Quinones MD Primary Care Provider [phone] Encounter Details Date Type Department Care Team (Late Contact Info) Description 11/15/2022 Orders Only [place] [facility] [facility], [facility] [address] [place], [place] [phone] Willy Gomez MD [facility]. [place] [address] [place], [place] [id number] Social History Tobacco Use Types Packs/Day Years [...] Encounters Date Type Department Care Team (Late Contact Info) Description 11/17/2024 8:45 AM CDT Office Visit [place] [facility], [place] [address] [place], [place] [phone] Stan Wan, AIRCRAFT INSPECTION RECORD CLERK Three [address] [address] documented as of this encounter Procedures Procedure Name Priority Date/Time Associated Diagnosis Comments MRI CARDIAC WO CON Routine 11/15/2022 Pericardial cyst (HHS/HCC) documented in this encounter Results * MRI CARDIAC WO CON (11/15/2022) Anatomical Region Laterality Modality Cardiac Magnetic Resonan ce us Willy Gomez MD MRI Final Result documented in this encounter Visit Diagnoses Diagnosis 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 [facility] [address] [place] [address] Precious Apprentice Instrument Technician CARDIOVASCULAR DISEASE 12/11/17 documented as of this encounter
--- OUTSIDE RECORDS SUMMARY | 2024-05-05 00:11 | XMS_ITS | Encounter Summary ---
Author Organization [facility] Address [address] [place] [address]. [place] [address] [place] [address] Care Team Providers Care Commercial Painter Name Role Phone Willy Gomez MD Unavailable [phone] John Quinones MD Primary Care Provider [phone] Encounter Details Date Type Department Care Team (Late Contact Info) Description 09/12/2022 Abstract [facility] [facility] [place], [address] [id number] Zahra Pickens, [facility] Social History Tobacco Use Types Packs/Day Years [...] 11/17/2024 8:45 AM CDT Office Visit [facility] [facility] [place], [facility] [address] [place], [place] [phone] Stan Wan, HOT HEADER OPERATOR Three [facility] [address] [place], [place] [id number] documented as of this encounter Procedures Procedure Name Priority Date/Time Associated Diagnosis Comments HEMOGLOBIN, GLYCOSYLATED Routine 06/27/2022 LIPID PANEL Routine 06/27/2022 CMP (OUTSIDE LAB) Routine 06/14/2022 CBC (OUTSIDE LAB) Routine 06/14/2022 documented in this encounter Results * HEMOGLOBIN, GLYCOSYLATED (06/27/2022) HGB A1C 5.5 4.0 - 6.0 % 06/27/2022 us Default History Genericprovider LABORATORY Final Result * (ABNORMAL) LIPID PANEL (06/27/2022) CHOLESTEROL 180 0 - 200 HDL 38 35 - 55 TRIGLYCERIDES 234(A) 0 - 150 CHOL/HDL RATIO 4.74 0.0 - 5.0 LDL (CALCULATED) 95 0 - 100 VLDL CALCULATION 46.8(A) 5.0 - 40.0 06/27/2022 us Default History Genericprovider LABORATORY Final Result * (ABNORMAL) CMP (OUTSIDE LAB) (06/14/2022) SODIUM S/P/B 137 136 - 145 POTASSIUM S/P/B 4.0 3.5 - 5.1 CHLORIDE S/P/B 100 98 - 107 CO2 25 22 - 29 BUN 12 6 - 20 CREATININE S/P/B 0.9 0.7 - 1.2 EGFR NON-AFR. AMER. 97 >60 CALCIUM S/P/B 9.4 GLUCOSE 115(A) 74 - 99 mg/dL TOTAL PROTEIN S/P/B 7.8 6.6 - 8.7 ALBUMIN S/P/B 4.5 3.5 - 5.2 AST 28 0 - 40 ALT 55(A) 0 - 41 ALKALINE PHOSPHATASE S/P/B 104 40 - 130 BILIRUBIN TOTAL S/P/B 0.4 0.0 - 1.2 06/14/2022 us Default History Genericprovider LAB-OUTSIDE/ABST RACTED Final Result * CBC (OUTSIDE LAB) (06/14/2022) WBC 7.1 3.5 - 10.0 HGB 15.1 11.5 - 16.5 HCT 46 35 - 55 PLT 222 100 - 400 RBC 4.8 3.5 - 5.5 06/14/2022 us Default History Genericprovider LAB-OUTSIDE/ABST RACTED Final Result documented in this encounter Visit Diagnoses Not on filedocumented in this encounter Care Teams Commercial Painter Relationship Specialty Start Date End Date John Quinones MD 1 [place] [address] PCP - General INTERNAL MEDICINE 10/21/21 Willy Gomez MD Three [facility]. [place] [address] [place] [address] [place] Community Placement Worker CARDIOVASCULAR DISEASE 12/11/17 documented as of this encounter
--- OUTSIDE RECORDS SUMMARY | 2024-05-05 00:11 | XMS_ITS | Encounter Summary ---
Author Organization [facility] Address [address] [place] [address]. [place] [address] [place] [address] Care Team Providers Care Engineering Technician Name Role Phone Willy Gomez MD Unavailable [phone] John Quinones MD Primary Care Provider [phone] Encounter Details Date Type Department Care Team (Latest Contact Info) Description 10/02/2022 Travel Social History Tobacco Use Types Packs/Day [...] 11/17/2024 8:45 AM CDT [facility] [address] [place], [place] [phone] Stan Wan, SANDIE [facility] [address] [place], [place] [address] documented as of this encounter Visit Diagnoses Not on filedocumented in this encounter Care Teams Engineering Technician Relationship Specialty Start Date End Date John Quinones MD [address] [place] [address] PCP - General INTERNAL MEDICINE 10/21/21 Willy Gomez MD Three [facility]. [place] [address] [place] [address] [place] Brand Recorder CARDIOVASCULAR DISEASE 12/11/17 documented as of this encounter
--- OUTSIDE RECORDS SUMMARY | 2024-05-05 00:11 | XMS_ITS | Encounter Summary ---
Author Organization [facility] Address [facility] [address] [place] [address] Care Team Providers Care Gold Assayer Name Role Phone Willy Gomez MD Unavailable [phone] John Quinones MD Primary Care Provider [phone] Reason for Referral * Procedure (Routine) - Closed Specialty Diagnoses / Procedures Referred By Magy lutz Referred To Contact Diagnoses Chronic cough Procedures Complete PFT (pre/post Palo, Lung Vol, Diff Capacity) (11000, 76142, 10956, 12339) Jessee Hoover MD [address] [address] Phone: tel: fax: Referral ID Status Reason Start Date Expiration Date Visits Re quested Visits Authorized [id number] Closed 12/14/2022 12/15/2023 1 1 * Imaging (Routine) - Closed Specialty Diagnoses / Procedures Referred By Magy lutz Referred To Contact RADIOLOGY Diagnoses Supraclavicular adenopathy Procedures CT SOFT TISSUE NECK W CON Jessee Hoover MD [address] [address] Phone: tel: fax: Referral ID Status Reason Start Date Expiration Date Visits Re quested Visits Authorized [id number] Closed 01/16/2023 02/14/2023 1 1 Reason for Visit * Reason Comments Cough Dry cough * Consultation/Treatment (Routine) - Closed Specialty Diagnoses / Procedures Referred By Contact Referred To Contact SLEEP & RESPIRATORY CARE Diagnoses Localized enlarged lymph nodes John Quinones MD 1 [place] [address] Phone: tel: fax: [facility] 3 [facility], [address] [place] [address] Phone: tel: fax: Referral ID Status Reason Start Date Expiration Date Visits Re quested Visits Authorized [id number] Closed 07/20/2022 07/21/2023 99 99 Encounter Details Date Type Department Care Team (Latest Contact Info) Description 12/14/2022 9:20 AM CDT Office Visit [facility] 3 [facility], [address] [place] [phone] Jessee Hoover MD 3 [facility] [place] [address] [place] [phone] Cough (Dry cough ) Social History Tobacco Use Types Packs/Day Years [...] Sign Reading Time Taken Comments Blood Pressure 125/83 12/14/2022 9:04 AM CDT Pulse 62 12/14/2022 9:04 AM CDT Temperature 36.4 ??C (97.5 ??F) 12/14/2022 9:04 AM CD T Respiratory Rate 12 12/14/2022 9:04 AM CDT Oxygen Saturation 98% 12/14/2022 9:04 AM CDT Inhaled Oxygen Concentration - - Weight 106.6 kg (235 lb) 12/14/2022 9:04 AM CDT Height 170.2 cm (5' 7 ) 12/14/2022 9:04 AM CDT Body Mass Index 36.81 12/14/2022 9:04 AM CDT documented in this encounter Patient Instructions * Patient Instructions* Jessee Hoover MD - 12/14/2022 9:20 AM CDT Plan for CT scan of your neck to see if the lymph node has gotten smaller in size Pulmonary function test to evaluate your cough documented in this encounter Progress Notes * Jessee Hoover MD - 12/14/2022 9:20 AM CDT Images from the original note were not included. [facility] History Chief Complaint Patient presents with Cough Dry cough Referring provider: John Quinones MD Asad Novak is a 57-year-old male with [...] asthma. Never smoker. 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 2 dogs and 1 cat at home. Past Medical History: Diagnosis Date Asthma (HHS/HCC) [...] Current Outpatient Medications Medication Sig Dispense Refill albuterol sulfate HFA 108 (90 Base) MCG/ACT inhaler albuterol sulfate HFA 90 mcg/actuation aerosol inhaler 2 puffs up to 4 times a days as needed only; Must go to the Emergency Room if no relief after the 4th treatment. telmisartan (MICARDIS) 20 MG Tab telmisartan 20 mg tablet TAKE 1 TABLET BY MOUTH ONCE DAILY No current facility-administered medications for this visit. [...] and suicidal ideas. Physical Exam Filed Vitals: 12/14/22 0904 BP: 125/83 Pulse: 62 Resp: 12 Temp: 97.5 ??F (36.4 ??C) TempSrc: Temporal SpO2: 98% Weight: 106.6 kg (235 lb) Height: 5' 7 (1.702 m) Body mass index is 36.81 kg/m??. Physical Exam: General: Alert, pleasant, in NAD Neuro: Alert, appropriate Psych: Affect normal Head: NC, AT EENT: No Sinus tenderness to palpation, mallampati 3 Neck: Supple Lymph: No appreciable cervical lymphadenopathy Respiratory: non-labored, ctab, no wheezes/crackles Cardiovascular: s1,s2, rrr, no audible murmur GI: non-distended, bs+ Musc: Bilateral wrist ROM wnl Ext: no edema, no clubbing Skin: No visible rashes, No visible tattoos PFTs: None for review Sleep Studies: None for review CT Chest 07/18/2022 Images personally reviewed. No concerning adenopathy or findings within the chest. There is supraclavicular adenopathy. 2D Echocardiogram 10/02/2022 Ejection fraction 60 to 65% Pertinent Labs Reviewed [facility] Sleepiness Scale Score: No data to display Assessment Supraclavicular adenopathy Reported history of asthma Sleep apnea history Plan -There was no adenopathy within the chest, I did call and discussed with one of our radiologist today regarding the best imaging modality to follow-up on supraclavicular adenopathy, they recommended CT scan of the neck with contrast, will order today - Lymphadenopathy no longer palpable, if it has decreased in size on imaging likely does not need any further follow-up, if it remains enlarged he may need IR consult for ultrasound-guided biopsy -For cough obtain complete PFT with and without bronchodilator Return in about 3 months (around 03/16/2023). Jessee Hoover MD documented in this encounter Plan of Treatment Upcoming Encounters Date Type Department Care Team (Late st Contact Info) Description 11/17/2024 8:45 AM CDT [facility] [place] [address] [place] [address] Stan Wan, GRADES 9 THRU 12 VISITING TEACHER Three [facility] [address] [place] [address] documented as of this encounter Results * Complete PFT (pre/post Palo, Lung Vol, Diff Capacity) (11750, 36075, 35764, 19330) (04/16/2023 9:00 AM BLOCK TRADER) Narrative [facility] - 04/16/2023 9:00 AM BLOCK TRADER Jessee oHover MD ? 04/26/2023 ??1:17 PM ?? [facility] Asad Novak 57-year-old Height [...] the use of inhaled bronchodilators clinically indicated Jessee Hoover MD us Jessee Hoover MD PFT ORDERABLES Final Result [facility] 3 [place] [address], * CT SOFT TISSUE NECK W CON [...] in this encounter Visit Diagnoses Diagnosis Chronic cough- Primary Cough Supraclavicular adenopathy Enlargement of lymph nodes Supraclavicular adenopathy Enlargement of lymph nodes Chronic cough Cough documented in this encounter Care Teams Gold Assayer Relationship Specialty Start Date End Date John Quinones MD 1 [place] [address] PCP - General INTERNAL MEDICINE 10/21/21 Willy Gomez MD Three [facility]. [place] [address] [place] [address] [place] Mat Cleaning Machine Operator CARDIOVASCULAR DISEASE 12/11/17 documented as of this encounter
--- OUTSIDE RECORDS SUMMARY | 2024-05-05 00:11 | XMS_ITS | Encounter Summary ---
Author Organization [facility] Address [address] [place] [address]. [place] [address] [place] [address] Care Team Providers Care Board Attendant Name Role Phone Willy Gomez MD Unavailable [phone] John Quinones MD Primary Care Provider [phone] Reason for Visit * Reason Onset Date Comments Results 10/25/2022 Encounter Details Date Type Department Care Team (Late st Contact Info) Description 10/25/2022 Telephone [facility], [facility] [address] [place], [place] [phone] Wlily Gomez MD [facility]. [facility] [address] [place], [place] [phone] Results (/) Social History Tobacco Use Types Packs/Day Years [...] AM CDT documented as of this encounter Progress Notes * Gavi R Lager, RN - 10/27/2022 1:35 PM CDT Patient informed of the recommendations and v/u. Patient had no further questions. 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 documented in this encounter Plan of Treatment Upcoming Encounters Date Type Department Care Team (Late st Contact Info) Description 11/17/2024 8:45 AM CDT Office Visit [facility] THREE [facility], [place] [address] [place], [place] [id number] Stan Wan, GOODYEAR WELTER Three [facility] [address] [place] [address] documented as of this encounter Visit Diagnoses Not on filedocumented in this encounter Care Teams Board Attendant Relationship Specialty Start Date End Date John Quinones MD 1 [place] [address] PCP - General INTERNAL MEDICINE 10/21/21 Willy Gomez MD Three [facility]. [place] [address] [place], [place] [address] [place] [facility] CARDIOVASCULAR DISEASE 12/11/17 documented as of this encounter
--- OUTSIDE RECORDS SUMMARY | 2024-05-05 00:11 | XMS_ITS | Encounter Summary ---
Author Organization [facility] Address [address] [place] [address]. [place] [address] [place] [address] Care Team Providers Care Comic Writer Name Role Phone Willy Gomez MD Unavailable [phone] John Quinones MD Primary Care Provider [phone] Encounter Details Date Type Department Care Team (Latest Contact Info) Description 12/11/2021 9:36 AM CDT - 12/11/2021 11:59 PM CDT Hospital Encounter [facility] [address] John Quinones MD [address] [place] [address] [address] [place] [address] Discharge Disposition: Home or Self [...] 11/17/2024 8:45 AM CDT Office Visit [facility] [address], [place] [address] [place] [address] Stan Wan, LABORER WHARF Three [facility] [address] [place] [address] documented as of this encounter Visit Diagnoses Diagnosis Pleuritic pain Painful respiration documented in this encounter Care Teams Comic Writer Relationship Specialty Start Date End Date John Quinones MD 1 [place] [address] PCP - General INTERNAL MEDICINE 10/21/21 Willy Gomez MD Three [facility]. [facility] [address] [place] [address] [place] Freight Hustler CARDIOVASCULAR DISEASE 12/11/17 documented as of this encounter
--- OUTSIDE RECORDS SUMMARY | 2024-05-05 00:11 | XMS_ITS | Encounter Summary ---
Author Organization [facility] Address [address] [place] [address]. [place] [address] [place] [address] Care Team Providers Care Automation Consultant Name Role Phone Willy Gomez MD Unavailable [phone] John Quinones MD Primary Care Provider [phone] Encounter Details Date Type Department Care Team (Late st Contact Info) Description 12/12/2021 Orders Only [facility] [address] [place], [place] [phone] John Quinones MD [address] [facility] [address] [place] [address] Social History Tobacco Use Types Packs/Day Years [...] 11/17/2024 8:45 AM CDT Office Visit [facility] [address] [facility], [place] [address] [place], [place] [address] Stan Wan, SANDIE Three [address] [address] documented as of this encounter Results * D-DIMER, QUANTITATIVE (12/12/2021 9:43 AM CDT) D-DIMER 217 0 - 500 ng{FEU}/mL 12/12/2021 10:06 AM CDT [facility] Comment: D-Dimer values less than or [...] CDT John Quinones MD LABORATORY Final Result [facility] 3 [place] [address], documented in this encounter Visit Diagnoses Diagnosis Pleuritic pain- Primary Painful respiration documented in this encounter Care Teams Automation Consultant Relationship Specialty Start Date End Date John Quinones MD 1 [place] [address] PCP - General INTERNAL MEDICINE 10/21/21 Willy Gomez MD Three [facility]. [address] [address] [place] Capsule Inspector CARDIOVASCULAR DISEASE 12/11/17 documented as of this encounter
--- OUTSIDE RECORDS SUMMARY | 2024-05-05 00:12 | XMS_ITS | Encounter Summary ---
Author Organization [facility] Address [facility]6 [facility] 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 on file Not on file documented as of this encounter Plan of Treatment Upcoming Encounters Date Type Department Care Team (Late st Contact Info) Description 11/17/2024 8:45 AM CDT Office Visit [facility], [facility] [address] [place], [place] [phone] Stan Wan NP [facility] [address] [place], [place] [phone] documented as of this encounter Procedures Procedure Name Priority Date/Time Associated Diagnosis Comments LIPID PANEL Routine 12/12/2017 HEMOGLOBIN, GLYCOSYLATED Routine 12/12/2017 documented in this encounter Results * HEMOGLOBIN, GLYCOSYLATED (12/12/2017) HGB A1C 5.1 12/12/2017 us Doc [facility] Final Result * LIPID PANEL (12/12/2017) CHOLESTEROL 189 HDL 51 TRIGLYCERIDES 90 NON HDL CHOLESTEROL 138 LDL (CALCULATED) 119 12/12/2017 us Doc [facility] Final Result documented in this encounter Visit Diagnoses Not on filedocumented in this encounter Care Teams Account Support Specialist Relationship Specialty Start Date End Date John Quinones MD 1 [place] [address] PCP - General INTERNAL MEDICINE 10/21/21 Willy Gomez MD Three [facility]. [place] [address] [place] [address] [place] Uranium Processing Supervisor CARDIOVASCULAR DISEASE 12/11/17 documented as of this encounter
--- OUTSIDE RECORDS SUMMARY | 2024-05-05 00:12 | XMS_ITS | Encounter Summary ---
Author Organization [facility] Address [address] [place] [address]. [place] [address] [place] [address] Care Team Providers Care Check Services Clerk Name Role Phone Willy Gomez MD Unavailable [phone] Reason for Visit * Reason Comments Chest Pain chest pain x 2 mo Encounter Details Date Type Department Care Team (Late st Contact Info) Description 12/12/2017 10:30 AM CDT Office Visit [facility] at [facility], [facility] [address] [place], [place] [phone] Willy Gomez MD [facility] [place]. [facility] [address] [place], [place] [id number] Chest Pain (chest pain x 2 mo) Social History Tobacco Use Types Packs/Day Years [...] Sign Reading Time Taken Comments Blood Pressure 142/94 12/12/2017 10:27 AM CDT Pulse 82 12/12/2017 10:27 AM CDT Temperature - - Respiratory Rate - - Oxygen Saturation - - Inhaled Oxygen Concentration - - Weight 111.1 kg (245 lb) 12/12/2017 10:27 AM CDT Height 170.2 cm (5' 7 ) 12/12/2017 10:27 AM CDT Body Mass Index 38.37 12/12/2017 10:27 AM CDT documented in this encounter Patient Instructions * Patient Instructions* Mohamud Crews - 12/12/2017 10:30 AM CDT Images from the original note were not included. Patient Education Chest Pain About this topic Chest pain is felt in the upper part of your body from your neck to your belly. You may feel pain, pressure, or tightness. Your heart and lungs are common sources of pain. You can also have pain fromyour chest muscles or the tendons and nerves in your chest. Your chest pain may be caused by a serious health problem or by something not as serious. Your doctor may use tests to record your heartbeats, use x-rays, or take your blood pressure to understand your chest pain. Treatment will depend on what is causing your chest pain. What are the causes? Some of the problems related to your heart include: ?? Heart attack. This is a blockage of blood supply to part of the heart. ?? Angina. This is similar to a heart attack, but without long-lasting heart damage. ?? Arrhythmia. This is abnormal heartbeats. ?? Pericarditis. This is irritation of the sac around the heart. Some of the problems that may not be related to your heart include: ?? Digestive problems like ulcers, indigestion, gastric reflux, gallstones ?? Lung problems like collapsed lung, blood clots, asthma, pneumonia ?? Rib injuries or muscle pain ?? Panic attack ?? Pinched nerve ?? Shingles What are the main signs? ?? Chest pain of any type should be checked by a doctor. ?? Signs that may show a more serious cause of chest pain are: ?? Squeezing or tightness in the chest which may spread to the back, neck, jaw, shoulders, or arms ?? Shortness of breath ?? Sweating ?? Dizziness ?? Upset stomach, nausea, or throwing up ?? Weakness ?? Feeling faint ?? If you have chest pain with any of these signs, call for emergency help. How does the doctor diagnose this health problem? Your doctor will do an exam. The doctor may ask you questions about your pain. Your doctor may order: ?? Lab tests ?? Chest x-ray ?? Electrocardiogram (ECG) ?? Echocardiogram ?? Stress test ?? Nuclear heart scanning ?? Computed tomography (CT) ?? Heart cath or catheterization How does the doctor treat this health problem? Your treatment will depend on what is causing the pain. Many times, drugs may be given to treat theproblem. Any chest pain could be serious. More serious problems can be treated by opening the vessel in your heart with a balloon or a metal straw called a stent. You may need surgery to replace the vessels in your heart. Always talk to your doctor about chest pain. What lifestyle changes are needed? Once your doctor finds the cause of your chest pain, you may be asked to make changes to your diet,activity, weight, and drugs you take. These changes will depend on the cause of your pain. What drugs may be needed? If chest pain is caused by a heart-related problem, the doctor may order drugs to: ?? Thin the blood ?? Dissolve a blood clot ?? Lower cholesterol ?? Lessen the work of your heart ?? Correct or prevent an abnormal heartbeat ?? Lower your blood pressure ?? Increase blood flow to the heart muscle ?? Relax the heart and help avoid spasms in the arteries If chest pain is caused by a something other than your heart, the doctor may order drugs to: ?? Help with pain ?? Treat stomach problems ?? Help with breathing ?? Help you relax ?? Control coughing What problems could happen? If the pain is due to a serious problem with the heart or lungs, the following things could happen: ?? Heart attack with long-lasting damage to the heart ?? Abnormal heartbeat that is too fast, too slow, or irregular ?? The heart stops beating. This is cardiac arrest. If not promptly treated, it can result in . What can be done to prevent this health problem? ?? If you smoke, stop. ?? Keep a healthy weight. If you are too heavy, lose weight. ?? Keep blood pressure, cholesterol, and high blood sugar (diabetes) under control. ?? Exercise at least 3 to 4 times a week. ?? Eat lots of fiber, fruits, starches, and vegetables and stay away from foods that are high in fats. When do I need to call the doctor? Activate the emergency medical system right away if you have signs of a heart attack. Call 911 in the [place] or [place]. The sooner treatment begins, the better your chances for recovery. Call for emergency help right away if you have: ?? Signs of heart attack: ?? Chest pain ?? Trouble breathing ?? Fast heartbeat ?? Feeling dizzy ?? Not had chest pain before and it does not go away with rest after [address] yourself to the hospital or have someone drive you. The emergency rescue people can begin to treat you theminute they arrive. If your doctor has given you nitroglycerin for heart pain, sit or lie down. ?? Place a pill under your tongue and allow it to dissolve. If your mouth is dry, take a small sip of water. ?? Wait 5 minutes and if the chest pain does not go away, call for help and put a second nitro pillunder your tongue. ?? Sometimes, your doctor will tell you to take a third pill after another 5 minutes. Where can I learn more? [place] [employer] http://www.heart.org/HEARTORG/Conditions/HeartAttack/AboutHeartAttacks/About-Hea rt-Attacks_UCM_002038_Article.jsp [place] [employer] http://www.heart.org/HEARTORG/Conditions/HeartAttack/SymptomsDiagnosisofHeartAtt ack/Mdughg-Ogtaq-Otax_SDQ_419881_Awzhbyl.jsp FamilyDoctor.org http://familydoctor.org/familydoctor/en/diseases-conditions/angina.printerview.a ll.html National Heart Lung and Blood [place] http://www.nhlbi.nih.gov/health/health-topics/topics/angina/ Last Reviewed Date 2015-06-10 Consumer Information Use and Disclaimer This information is not specific medical advice and does not replace information you receive from your health care provider. This is only a brief summary of general information. It does NOT include all information about conditions, illnesses, injuries, tests, procedures, treatments, therapies, discharge instructions or life-style choices that may apply to you. You must talk with your health care provider for complete information about your health and treatment options. This information should not be used to decide whether or not to accept your health care provider???s advice, instructions or recommendations. Only your health care provider has the knowledge and training to provide advice that is right for you. Copyright Copyright ?? 2018 [employer]. and its affiliates and/or licensors. All rights reserved. documented in this encounter Progress Notes * Willy Gomez MD - 12/12/2017 10:30 AM CDT Reason for Visit: Chest Pain (chest pain x 2 mo) History of Present Illness: Mr. Novak is a 52-year-old gentleman with no prior cardiac history being seen today for further evaluation of chest pain. He reports that he has been having exertional chest tightness for the past several months; it is also brought on by emotional stress. He reports a sensation of substernal chest tightness variably associated with shortness of breath, no associated nausea or diaphoresis, sometimes lasting for up to an hour and typically relieved by rest. He also notes frequent GERD symptoms after eating spicy food and feels this is distinctly different than his new chest discomfort. He does limited formal exercise, but has no difficulty going about his usual activities. Denies any heart failure symptoms including orthopnea, PND, lower extremity edema. Recommendations and Plan: 1. Chest pain: In light of his symptoms, I would like to obtain an exercise echo stress test to screen for any cardiac anomalies causing his symptoms. I would also like to check a fasting lipid panel and A1c for further risk stratification. I will plan to see him back in 3 months unless issues arise in the interim. Thank you very much for allowing me to participate in the care of your patient. Please feel free tocontact me with any further questions or concerns. DATA REVIEWED: 12/12/17 EKG obtained in the office and personally reviewed: Normal sinus rhythm, occasional PVC. PAST MEDICAL HISTORY: Obstructive sleep apnea on CPAP. ALLERGIES: As below. MEDICATIONS: As below. 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 Drinks about 20 beers a week and denies any tobacco or illicit substance use. FAMILY HISTORY: Negative for premature coronary artery disease. REVIEW OF SYSTEMS: As per HPI. All other systems were reviewed and were negative. Medications: No current outpatient medications on file. No Known Allergies Past Medical History: Diagnosis Date ??? Asthma ??? Chest tightness ??? Sleep apnea No past surgical history on file. Social History Socioeconomic History ??? Marital status: Spouse name: Not on file ??? Number of children: 1 ??? Years of education: Not on file ??? Highest education level: Not on file Social Needs ??? Financial resource strain: Not on file ??? Food insecurity - worry: Not on file ??? Food insecurity - inability: Not on file ??? Transportation needs - medical: Not on file ??? Transportation needs - non-medical: Not on file Occupational History ??? 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 Smoking status: Never Smoker ??? Smokeless tobacco: Never Used Substance and Sexual Activity ??? Alcohol use: Yes Alcohol/week: 20.0 oz Types: 20 Cans of beer per week ??? Drug use: No ??? Sexual activity: Not on file Other Topics Concern ??? Service Not Asked ??? Blood Transfusions Not Asked ??? Caffeine Concern Yes Comment: 15-20 diet sodas per week ??? Occupational Exposure Not Asked ??? Hobby Hazards Not Asked ??? Sleep Concern Not Asked ??? Stress Concern Not Asked ??? Weight Concern Not Asked ??? Special Diet No ??? Back Care Not Asked ??? Exercise No ??? Bike Helmet Not Asked ??? Seat Belt Not Asked ??? Self-Exams Not Asked ??? Wheelchair Not Asked ??? Walker Not Asked ??? Upper extremity braces/slings Not Asked ??? Lower extermity braces/slings Not Asked ??? Self Care Not Asked Social History Narrative ??? Not on file Family History Problem Relation Age of Onset ??? Heart Attack Father ??? Heart Attack Paternal Grandmother Family Status Relation Name Status ??? Mother Alive, age 74y ??? Father at age 63 ??? Sister Alive, age 53y ??? Brother at age 53 ??? MGM at age 77 ??? PGM at age 84 ??? PGF at age 72 ??? Brother Alive, age 44y Review of Systems Constitutional: Negative for recent unintentional weight gain, recent unintentional weight loss andnew or significant fatigue. HENT: Negative for new or significant hearing loss. Eyes: Negative for blurred vision and double vision. Respiratory: Negative for cough, new or significant shortness of breath and snoring. Cardiovascular: See HPI Gastrointestinal: Negative for blood in stool and melena. Genitourinary: Negative for dysuria. Musculoskeletal: Negative for myalgias and new or worsening joint stiffness/pain. Skin: Negative for rash. Neurological: Negative for tingling/numbness and focal weakness. Endo/Heme/Allergies: Negative for new or significant bruising/bleeding and polydipsia. Psychiatric/Behavioral: Negative for depression and new or significant memory loss. Filed Vitals: 12/12/17 1027 BP: (!) 142/94 Pulse: 82 Weight: 111.1 kg (245 lb) Height: 5' 7 (1.702 m) Physical Exam Constitutional: He is oriented to person, place, and time. He appears well- developed and well-nourished. No distress. HENT: Nose: No mucosal edema. Mouth/Throat: Oropharynx is clear and moist and mucous membranes are normal. No oropharyngeal exudate. Neck: Neck supple. No JVD present. Cardiovascular: Normal rate, regular rhythm, S1 normal, S2 normal and intact distal pulses. PMI is not displaced. Exam reveals no gallop. No murmur heard. Pulmonary/Chest: Effort normal and breath sounds normal. No respiratory distress. Abdominal: Normal appearance. He exhibits no abdominal bruit and no mass. There is no hepatosplenomegaly. There is no tenderness. Musculoskeletal: Normal range of motion. He exhibits no deformity. Neurological: He is alert and oriented to person, place, and time. Skin: Skin is warm and dry. Psychiatric: He has a normal mood and affect. His behavior is normal. Thought content normal. Diagnoses/Impression: 1. Precordial pain ELECTROCARDIOGRAM (NON MIDMARK ACQUIRED) LIPID PANEL HEMOGLOBIN, GLYCOSYLATED CANCELED: USE STRESS ECHO INCLUDING S AND I 2. Chest tightness Referring Provider: Roberto Borrero PCP: ROBERTO BORRERO MD * Willy Gomez MD - 12/12/2017 10:30 AM CDT documented in this encounter Plan of Treatment Upcoming Encounters Date Type Department Care Team (Late st Contact Info) Description 11/17/2024 8:45 AM CDT Office Visit [facility] [address], [place] [address] [place] [address] Stan Wan, SANDIE Three [place] [address] [place] [address] documented as of this encounter Procedures Procedure Name Priority Date/Time Associated Diagnosis Comments ELECTROCARDIOGRAM (NON MIDMA RK ACQUIRED) Routine 12/12/2017 Precordial pain documented in this encounter Results * ELECTROCARDIOGRAM (12/12/2017) Willy Gomez MD PROCEDURES-ORDERABLE NO CHARGE Final Result documented in this encounter Visit Diagnoses Diagnosis Precordial pain- Primary Chest tightness Other chest pain documented in this encounter Care Teams Check Services Clerk Relationship Specialty Start Date End Date Willy [facility] [place] [address] [place] [address] [place] [employer] CARDIOVASCULAR DISEASE 12/11/17 documented as of this encounter
--- OUTSIDE RECORDS SUMMARY | 2024-05-05 00:12 | XMS_ITS | Encounter Summary ---
Author Organization [facility] Address [address] [place] [address]. [place], [place] [phone] [place] [address] Care Team Providers Care Aircraft Motor Mechanic Name Role Phone Unavailable Primary Care Provider Unavailabl e Reason for Visit * Reason Onset Date Comments Consult 12/04/2017 Encounter Details Date Type Department Care Team (Late Contact Info) Description 12/04/2017 Telephone [facility] at [facility], [facility] [address] [place], [place] [address] Eric Donovan MD [facility]. [facility] [address] [place] [address] Consult Social History Tobacco Use Types Packs/Day Years Used Date Smoking Tobacco: Never Assessed Sex and Gender Information Value Date Recorded Sex Assigned at Not on file Legal Sex Male 7:48 AM CDT Gender Identity Not on file Sexual Orientation Not on file documented as of this encounter Progress Notes * NICHOLE Dorado - 12/04/2017 1:31 PM CDT Left message on voice mail for patient to schedule Consult per Dr. Jarred Gaxiola documented in this encounter Plan of Treatment Upcoming Encounters Date Type Department Care Team (Late Contact Info) Description 11/17/2024 8:45 AM CDT Office Visit [facility], [place] [address] [place] [address] Stan Wan, SANDIE Three [facility] [address] [place] [address] documented as of this encounter Visit Diagnoses Not on filedocumented in this encounter
--- OUTSIDE RECORDS SUMMARY | 2024-05-05 00:12 | XMS_ITS | Encounter Summary ---
Author Organization [facility] Address [facility] [place] [address] [place] [address] Care Team Providers Care Professor Criminal Justice Name Role Phone Willy Gomez MD Unavailable [phone] Reason for Visit * Imaging (Routine) - Closed Specialty Diagnoses / Procedures Referred By Contac t Referred To Contact CARDIOLOGY DIAGNOSTICS Diagnoses Precordial pain Procedures USE STRESS ECHO W ALVARO Parmar MD USE STRESS ECHO INCLUDING S AND I ECHO TRANSTHORACIC INCLUDING PERF CONTINOUS Willy Gomez MD [facility]. [address] [address] Phone: tel: fax: [place] [address] Phone: tel: Referral ID Status Reason Start Date Expiration Date Visits Re quested Visits Authorized [id number] Closed 01/02/2018 01/31/2018 1 1 Encounter Details Date Type Department Care Team (Late st Contact Info) Description 01/14/2018 1:59 PM CDT - 01/14/2018 11:59 PM CDT Hospital Encounter [facility] Non Invasive Cardiology [place], [place] [phone] Willy Gomez MD [facility]. [address] [phone] Discharge Disposition: Home or Self Care (Routine [...] 11/17/2024 8:45 AM CDT Office Visit [facility], [facility] [address] [place] [address] Stan Wan NP Three [facility] [address] [place], [place] [id number] documented as of this encounter Procedures Procedure Name Priority Date/Time Associated Diagnosis Comments USE STRESS ECHO Agata Parmar MD Routine 01/14/2018 3:36 PM CDT Chest pain documented in this encounter Results * USE STRESS ECHO Agata Parmar MD (01/14/2018 3:36 PM CDT) Anatomical Region Laterality Modality Cardiac Echocardiogram 01/14/2018 3:19 PM CDT Narrative 01/14/2018 3:54 PM CDT ?Stress Echocardiography Report Pat.Name: ??JUANITA NOVAK ?Pat.ID: ?[id number] ? St.Date: ?? 01/14/2018 ? Refer.MD: ??[id number], Willy Gomez Exam Time: 3:19:00 PM ? Study Type:STRESS ECHO DOPPLER COLOR FLOW Height: ?67in ?Weight: ?244.49lb ? BSA: ? 2.2 m2 ?Age: ??1965,52Y ? Sex: ? MALE ?HR: ?78 bpm ? Sonogrphr: Sharonda Blanco RDCS ?Pat. Stat.:Outpatient ? Reason for Study:Chest pain ? Procedures:2D, Exercise Stress Echo, Definity was used to enhance endocardial definition., The study quality is technically difficult. Race: ?W ? ++++++++++++++++++++++++++++++++++++ SUMMARY: ++++++++++++++++++++++++++++++++++++ 1. ? Clinically negative. 2. ? Electrocardiographically negative treadmill test for ischemia. 3. ? Adequate exercise capacity. ?? 4. ? Echocardiographically negative for ischemia. 5. ? Jimenez Treadmill Score is 7.5 , which indicates low risk. 6. ? Blood pressure response was ??normal. ?? 7. ? The quality of this study is reasonable . Definity was used. 8. ? Stress echocardiogram shows overall low risk for a cardiac event. ++++++++++++++++++++++++++++++++++++ FINDINGS: ++++++++++++++++++++++++++++++++++++ RESTING FINDINGS LV: ? LV function is normal. Overall wall motion is normal. 60% STRESS FINDINGS LV: ? LV function is normal. Overall stress wall motion is normal. ?70% ??All goodson are normal ++++++++++++++++++++++++++++++++++++ STRESS: ++++++++++++++++++++++++++++++++++++ Baseline Vital Signs: ?Test ? Exercise Stress Echo ECG ?Normal ?Protocol ?? Leobardo HR ? 78 ?Duration ?? 07:30Atropine 0 Rest BP ?131/85 ?Max. Workload (METS) 8.8 Rhythm ? Normal sinus rhythm Stress Test Results: Max. HR ?176 ? Pred. Max. Heart Rate (100%) 168 ?? % Target: ??105 % ? Max BP ? 158/96 ? Max RPP ?85651 ? Symptoms and Complications: Arrhythmias None Terminated Shortness of breath, Target reached Symptoms ?? MOSES Stress ECG Interp No ischemic S-T changes occurred with stress, Sinus Tachycardia ++++++++++++++++++++++++++++++++++++ WALL MOTION: ++++++++++++++++++++++++++++++++++++ RESTING WALL MOTION: All goodson are normal Wall Index = 1 STRESS WALL MOTION: All goodson are normal Stress Wall Index = 1 Signed 01/14/2018 03:54 PM Willy Gomez M.D. Procedure Note Maira Philip Conversion, - 01/14/2018 Stress Echocardiography Report Pat.Name: JUANITA NOVAK Pat.ID: [id number] .Date: 01/14/2018 Refer.: [id number] Scott Exam Time: 3:19:00 PM Study Type:STRESS ECHO DOPPLER COLOR FLOW Height: 67in Weight: 244.49lb BSA: 2.2 m2 Age: 7 1965,52Y Sex: MALE HR: 78 bpm Sonogrphr: Sharonda Blanco [facility] Pat. Stat.:Outpatient Reason for Study:Chest pain Procedures:2D, Exercise Stress Echo, Definity was used to enhance endocardial definition., The study quality is technically difficult. Race: W ++++++++++++++++++++++++++++++++++++ SUMMARY: ++++++++++++++++++++++++++++++++++++ 1. Clinically negative. 2. Electrocardiographically negative treadmill test for ischemia. 3. Adequate exercise capacity. 4. Echocardiographically negative for ischemia. 5. Jimenez Treadmill Score is 7.5 , which indicates low risk. 6. Blood pressure response was normal. 7. The quality of this study is reasonable . DefinGAMEVIL was used. 8. Stress echocardiogram shows overall low risk for a cardiac event. ++++++++++++++++++++++++++++++++++++ FINDINGS: ++++++++++++++++++++++++++++++++++++ RESTING FINDINGS LV: LV function is normal. Overall wall motion is normal. 60% STRESS FINDINGS LV: LV function is normal. Overall stress wall motion is normal. 70% All goodson are normal ++++++++++++++++++++++++++++++++++++ STRESS: ++++++++++++++++++++++++++++++++++++ Baseline Vital Signs: Test Exercise Stress Echo ECG Normal Protocol Leobardo HR 78 Duration 07:30Atropine 0 Rest BP 131/85 Max. Workload (METS) 8.8 Rhythm Normal sinus rhythm Stress Test Results: Max. HR 176 Pred. Max. Heart Rate (100%) 168 % Target: 105 % Max BP 158/96 Max RPP 65066 Symptoms and Complications: Arrhythmias None Terminated Shortness of breath, Target reached Symptoms MOSES Stress ECG Interp No ischemic S-T changes occurred with stress, Sinus Tachycardia ++++++++++++++++++++++++++++++++++++ WALL MOTION: ++++++++++++++++++++++++++++++++++++ RESTING WALL MOTION: All goodson are normal Wall Index = 1 STRESS WALL MOTION: All goodson are normal Stress Wall Index = 1 Signed 01/14/2018 03:54 PM Willy Gomez M.D. Willy Gomez MD ECHO Final Result documented in this encounter Visit Diagnoses Diagnosis Chest tightness- Primary Other chest pain Chest pain Chest pain, unspecified documented in this encounter Administered Medications Inactive Administered Medications - up to 3 most recent administrations Medication Order MAR Action Action Date Dose Rate Site perflutren lipid microsphere (DEFINITY) injection 2 mL 2 mL, Intravenous, IMG once as needed, Contrast, 1 dose, Starting on Sun01/14/18 at 1502, Until Sun01/14/18 at 1502 Given 01/14/2018 3:02 PM CDT 2 mLs documented in this encounter Care Teams Professor Criminal Justice Relationship Specialty Start Date End Date Willy Gomez MD [address] [place] [address] [place] [employer] CARDIOVASCULAR DISEASE 12/11/17 documented as of this encounter
== END 2024-04-27 19:35 | disposition home or self-care (01) ==
PROVIDERS: Emergency Provider Nurse Practitioner Family; PCP Internal Medicine
DX: J40 Bronchitis, not specified as acute or chronic (principal); R07.81 Pleurodynia; I10 Essential (primary) hypertension; J45.909 Unspecified asthma, uncomplicated
CPT/HCPCS: 99203; G0463